=== PATIENT | female | born 1940 | race Caucasian/White ===

== ENCOUNTER 2019-08-15 17:36 | Inpatient (IN) ==
[2019-08-15] MEDS ORDERED: SODIUM CHLORIDE 0.9% 1000ML 1,000 ML IV SCH (18:15)
[2019-08-15] MEDS ORDERED: LORazepam 0.5 MG TAB PO STA (18:18)
[2019-08-15 18:49] LABS: Eosinophils # (auto) 0.04 K/uL (0-0.5); Eosinophils % (auto) 1.3 %; Hematocrit (blood only) 23.6 % (37-47); Hemoglobin 8.2 g/dL (12.0-16.0); Immature Granulocytes # (auto) 0.04 K/uL (0.00-0.02); Immature Granulocytes % (auto) 1.3 %; Lymphocytes # (auto) 0.76 K/uL (1.2-3.4); Lymphocytes % (auto) 24.7 %; Mean Corpuscular Hemoglobin 31.8 pg (25-34); Mean Corpuscular Hgb Conc 34.7 g/dL (32-36); Mean Corpuscular Volume 91.5 fL (80-100); Mean Platelet Volume 8.6 fL (7.4-10.4); Monocytes # (auto) 0.47 K/uL (0.11-0.59); Monocytes % (auto) 15.3 %; Neutrophils # (auto) 1.77 K/uL (1.4-6.5); Neutrophils % (auto) 57.4 %; Platelet Count 234 K/uL (130-400); RDW Coefficient of Variation 16.6 % (11.5-14.5); RDW Standard Deviation 55.8 fL (36.4-46.3); Red Blood Count 2.58 M/uL (4.2-5.4); White Blood Count 3.08 K/uL (4.8-10.8)
--- NOTE | 2019-08-15 18:54 | Emergency Department Note ---
Entered by Ruby Berger acting as a scribe for Manuel Meza MD ED Provider Note CHIEF COMPLAINT: Confusion HISTORY OF PRESENT ILLNESS: The patient is a 78 year old female who presents to the Emergency Room with complaints of confusion. She is accompanied by 2 family members. She states she has experienced a recent loss of memory and her BSG was high, then went down to 86. Her family states she has been "slurring her speech" and increasingly weak. She was unable to hold a sandwich at 1645 today. Her daughter states her speech issues lasted for about 10 minutes. The patient has no prior history of stroke or mini-stroke. She has had MRI's before, but does get slightly anxious in the MRI tube. She does complain of persistent pain in the left side of her nose. She admits to intermittent constipation and diarrhea, most likely from chemotherapy. The patient was here in the ED on 07/23/2019 and had an extensive workup. She was discharged as there were no acute findings on a CT head, neck, chest, abdomen and pelvis. Pt denies LOC, headache, fevers, chills, diaphoresis, visual changes, neck pain, chest pain, breathing difficulties, nausea, vomiting, abdominal pain, back pain, melena, hematochezia, urinary symptoms, numbness, lymphadenopathy, rash, or other complaints. REVIEW OF SYSTEMS: See HPI for pertinent positives and negatives. A total of ten systems were reviewed and were otherwise negative. PMHx/PSHx: Diabetes. Breast cancer. Ovarian cancer. GERD. HTN. SOCIAL HISTORY: Patient lives at home. PHYSICAL EXAM: GENERAL: Awake, alert, well-appearing, in no distress HENT: Normocephalic, atraumatic. Oropharynx unremarkable. EYES: PERRL. Normal conjunctiva. Sclera non-icteric. NECK: Inspection normal. Non-tender. Supple. No nuchal rigidity. FROM. No masses. RESPIRATORY: Clear to auscultation. No wheezes. No rales. Normal respiratory effort. CARDIAC: Normal rate. Normal rhythm. No murmurs. No rubs. Extremities warm and well perfused. Pulses equal. No JVD. GI: Soft, non-distended. No tenderness to palpation. No rebound or guarding. No masses. RECTAL: Deferred. MUSCULOSKELETAL: Atraumatic. Chest examination reveals no tenderness. Port in left upper chest. The back is symmetrical on inspection without obvious abnormality. There is no CVA tenderness to palpation. No joint edema. LOWER EXTREMITIES: Calves are equal size bilaterally and non-tender. No edema. No discoloration. NEURO: Normal sensorium. No sensory or motor deficits noted. No drift. Normal finger to nose. SKIN: No rash or jaundice noted. EMERGENCY DEPARTMENT COURSE: 1806: Past medical records reviewed. The patient was evaluated in room B4B, and a complete history and physical examination were performed. MEDICAL DECISION MAKING: Prior records/ancillary studies reviewed. Previous work-up including multiple CT scans did not reveal any new acute findings. Nursing notes reviewed and agree them. Additional history obtained from family. The patient's history was concerning for slurred speech and left arm weakness. Differential diagnosis: Etiologies such as CVA, TIA, metabolic, infection, hypo/hyperglycemia, electrolyte abnormalities, cardiac sources, intracerebral event, toxicologic, neurologic, as well as others were entertained. Physical examination: As above. The patient has no drift. The weakness and slurred speech has resolved. ER treatment provided: IV Lock Normal saline hydration Oral Ativan for MRI claustrophobia. On reassessment the patient felt better. Diagnostics interpretation by me: ECG: [] The labs revealed [] Imaging studies: MR imaging as below. The patient had an episode that was different from her prior visit. She had slurred speech and left arm weakness. This was concerning for a significant TIA by history. MR imaging was performed. Consultation: A consultation was placed with the hospitalist. The case was discussed and diagnostics were reviewed. The patient was evaluated in the ER for further treatment. IMPRESSION: Slurred speech Left arm weakness History of metastatic ovarian cancer PLAN: Admit The scribe's documentation has been prepared under my direction and personally reviewed by me in its entirety. I confirm that the note above accurately reflects all work, treatment, procedures, and medical decision making performed by me. Past Med/Surg History Medical History Breast cancer (Resolved) Cancer OVARIAN CANCER AND FOUND NODULE IN DUODENUM AREA AND WILL START CHEMO AFTER THANKSGIVING 2019 Diabetes mellitus, type 2 Facial laceration (Acute) GERD (gastroesophageal reflux disease) Head injury (Acute) Hypertension Surgical History History of colon resection History of tonsillectomy Hx of colonoscopy Hx of eye surgery UNSURE SOMETHING TO DO WITH RETINA Hx of hysterectomy BSO Social History Preferred Language: Kiswahili Communication Ability: Effective Public Safety Police Required: No Beliefs That Will Affect Care: None Current Living Situation: Spouse Feels Safe at Home: Yes Smoking Status: Never smoker Second Hand Exposure: No ; Hx Alcohol Use: Yes Alcohol type: wine Hx Substance Use: No Results & Data Vital Signs Vital Signs - 24 hr 08/15/19 17:46 08/15/19 18:15 Temperature 36.3 C L Temperature Source Oral Pulse Rate 70 Respiratory Rate 18 Respiratory Effort / Characteristics Non-Labored Spontaneous Respiratory Depth Normal Blood Pressure 182/92 H Blood Pressure Mean 122 Blood Pressure Position Sitting Pulse Oximetry 99 98 Oxygen Delivery Method Room Air Room Air Sepsis Recent Fever Within 48 Hours No Sepsis New/Unexplained Change in Mental Status No Sepsis Action Taken by Nursing No Action Required Home Medications Current Medication List: was personally reviewed by me Laboratory Data Attestation: I reviewed the patient's lab results. Result diagrams: 08/15/19 18:39 08/15/19 18:39 Lab Results 08/15/19 Range/Units 18:39 WBC 3.08 L (4.8-10.8) K/uL RBC 2.58 L (4.2-5.4) M/uL Hgb 8.2 L (12.0-16.0) g/dL Hct 23.6 L (37-47) % MCV 91.5 (80-100) fL MCH 31.8 (25-34) pg MCHC 34.7 (32-36) g/dL RDW Std Deviation 55.8 H (36.4-46.3) fL RDW Coeff of Ninoska 16.6 H (11.5-14.5) % Plt Count 234 (130-400) K/uL MPV 8.6 (7.4-10.4) fL Immature Gran % (Auto) 1.3 % Neut % (Auto) 57.4 % Lymph % (Auto) 24.7 % Young % (Auto) 15.3 % Eos % (Auto) 1.3 % Baso % (Auto) 0.0 % Immature Gran # (Auto) 0.04 H (0.00-0.02) K/uL Neut # (Auto) 1.77 (1.4-6.5) K/uL Lymph # (Auto) 0.76 L (1.2-3.4) K/uL Young # (Auto) 0.47 (0.11-0.59) K/uL Eos # (Auto) 0.04 (0-0.5) K/uL Baso # (Auto) 0.00 (0-0.2) K/uL Discharge Plan Visit Data Chief Complaint: Confusion Stated Complaint: LOST ABILITY TO SPEAK , ON CHEMO Other Complaint: Illness ED Provider: Manuel Meza Prescriptions Prescriptions: No Action metformin 500 mg Tablet 500 mg PO BID RF: 0 cyanocobalamin (vitamin B-12) [Vitamin B-12] 1,000 mcg Tablet 1,000 mcg PO QAM RF: 0 glimepiride 1 mg Tablet 1 mg PO UD RF: 0 multivitamin Capsule 1 cap PO QAM RF: 0 lisinopril 2.5 mg Tablet 2.5 mg PO QAM RF: 0 tramadol 50 mg tablet 50 mg PO Q6H PRN (Reason: Pain) RF: 0 trazodone 100 mg Tablet 100 mg PO HS PRN (Reason: Insomnia) RF: 0 lorazepam 0.5 mg tablet 0.5 mg PO DAILY PRN (Reason: Anxiety) RF: 0 Lidoc/Child/Antac liquid 15 ml mucous membrane QID PRN (Reason: Mouth Irritation) RF: 0 metoprolol succinate 25 mg Tablet Extended Release 24 Hr 25 mg PO DAILY RF: 0 acetaminophen [Tylenol 8 Hour] 650 mg tablet extended release 650 mg PO Q8H PRN (Reason: Fever Or Pain) RF: 0 ibuprofen [Advil] 200 mg Tablet 400 mg PO Q6H PRN (Reason: Pain) RF: 0 Lidocaine Viscous 2 % solution 1 applic topical UD RF: 0 The scribe's documentation has been prepared under my direction and personally reviewed by me in its entirety. I confirm that the note above accurately reflects all work, treatment, procedures, and medical decision making performed by me.
[2019-08-15 19:10] LABS: Appearance Urine Clear (Clear); Bilirubin Urine Negative (Negative); Blood Urine Negative (Negative); Color Urine Yellow; Glucose Urine UA Negative (Negative); Ketones Urine Negative (Negative); Leukocyte Esterase Urine Negative (Negative); Nitrite Urine Negative (Negative); Protein Urine Negative (Negative); Specific Gravity Urine 1.007 (1.000-1.030); Urobilinogen Urine Negative (Negative); pH Urine 5.5 (4.5-7.5)
[2019-08-15 19:11] LABS: Alanine Aminotransferase 16 U/L (12-78); Albumin Level 2.4 gm/dl (3.4-5.0); Aspartate Aminotransferase 15 U/L (15-37); BUN Creatinine Ratio 30.5 (10-20); Blood Urea Nitrogen 13 mg/dl (7-18); Calcium 6.6 mg/dl (8.5-10.1); Carbon Dioxide 21 mmol/L (21-32); Chloride 115 mmol/L (98-107); Est GFR (African American) 113.9; Est GFR (Non-African American) 98.3; Glucose 78 mg/dl (70-99); Sodium 141 mmol/L (136-145)
[2019-08-15 19:21] LABS: Albumin Globulin Ratio 1.1 (0.9-2); Alkaline Phosphatase 45 U/L (45-117); Bilirubin,Total 0.5 mg/dl (0.2-1); Globulin 2.2 gm/dl (2.5-4.0); Total Protein 4.6 gm/dl (6.4-8.2)
--- NOTE | 2019-08-15 21:08 | Magnetic Resonance Report ---
MRI OF THE BRAIN WITHOUT CONTRAST CLINICAL HISTORY: R/O CVA WEAKNESS, SLURRED SPEECH COMPARISON STUDY: Noncontrast head CT dated 08/09/2019 FINDINGS: Sagittal T1, axial diffusion, proton density and T2 weighted axial, coronal FLAIR, and axial T1-weigh frantz images were acquired. No intra or extra-axial mass lesions are visualized Axial diffusion-weighted images reveal no evidence of acute or subacute infarction. There is no evidence of ventricular dilatation. Proton density T2-weighted and FLAIR images reveal minimal foci of increased T2 signal within the whi te matter, likely on a small vessel basis. There are no abnormal flow voids. IMPRESSION: 1. No acute intracranial findings 2. No evidence of intracranial mass 2. No evidence of acute or subacute infarction ACT 112: Negative or not required by law. Electronically signed by: Nishant Savage M.D. 08/15/2019 9:07 PM
[2019-08-16] MEDS ORDERED: NITROGLYCERIN SL 0.4 MG/TAB TAB SL PRN (00:47)
[2019-08-16] MEDS ORDERED: PHARMACIST DISCHARGE MED REC CONSULT PRN (00:47)
[2019-08-16] MEDS ORDERED: TRAMADOL HCL 50 MG TABLET PO PRN (00:47)
[2019-08-16] MEDS ORDERED: [UNRECOGNIZED DRUG - OTHER] mucous membrane PRN (00:47)
[2019-08-16] MEDS ORDERED: ONDANSETRON INJ 2 MG/ML 2 ML VIAL IV PRN (00:47)
[2019-08-16] MEDS ORDERED: POTASSIUM CHLORIDE 20 MEQ TABCR PO STA (00:47)
[2019-08-16 01:07] LABS: Magnesium 0.9 mg/dl (1.8-2.4)
--- NOTE | 2019-08-16 01:16 | History and Physical Report ---
DATE OF ADMISSION: 08/15/2019 CHIEF COMPLAINT: Stroke-like symptoms. HISTORY OF PRESENT ILLNESS: This is a 78-year-old female with past medical history significant for type 2 diabetes, diabetic retinopathy, pulmonary fibrosis, history of supraventricular tachycardia, history of hypertension, esophageal stricture status post dilatation in the past. Currently, she is careful with swallowing, history of irritable bowel syndrome, history of anemia, history of recurrent ovarian cancer status post debulking surgery in February 2014, followed with chemo, then again she has a recurrent disease. Currently, she is on chemo every 4 weeks with doxy and carboplatin and in between she gets Avastin, and tomorrow she is supposed to get chemo. The patient comes here because around 3-4 p.m. she had word finding difficulty and she could not hold sandwich in her right hand, it lasts for about 10 minutes and she is back to her baseline. The patient is here on 08/09/2019 with complaints of weakness and pain in the mouth from ulcer and she is on Magic mouthwash and that has improved and at that time she also complained of some neck pain and CAT scan of soft tissue of the neck was done and there is question of A-port irritating the muscle, but she saw general surgery today and found the A-port was in good position.Also since she started on new chemo, in June she is feeling weak and tired. She usually ambulates without support prior, but now she is requiring some help while ambulating. Appetite is okay. She has to be careful with swallowing because of history of esophageal strictures. Denies any cough, no fever, no chills, no nausea, no vomiting, no abdominal pain. Has some mild headache, mild dizziness while ambulating, no blurred vision, no earaches. She has complaints of pain in the nose, some sore throat, pain in the throat. She gets diarrhea from the chemo, but today, she did not have any diarrhea, no blood in the stools or black stools. No hematuria, no burning micturition. No rash, no swelling in the legs. Currently resting comfortably and hemodynamically stable. ALLERGIES: CODEINE, LEVAQUIN, PENICILLINS. PAST MEDICAL HISTORY: As mentioned above. PAST SURGICAL HISTORY: Colonoscopy, left breast lumpectomy, colonoscopy with biopsy, multiple EGDs, EGD with transendoscopic dilatation, exploration of the abdomen, breast implants, injection of the eyes, insertion of tunneled central venous catheterization with subcutaneous port in 2013, multiple laser procedures for the eye, radiation treatment, removal of the inner eye fluid, tonsillectomy, cataract surgery, total abdominal hysterectomy with removal of the tubes. MEDICATIONS: The patient is on tramadol 50 mg p.o. q. 6 hours p.r.n. Magic mouthwash 4 times a day, Ativan 0.5 mg p.o. t.i.d. p.r.n., Toprol-XL 25 mg p.o. daily, Zofran 8 mg p.o. t.i.d. p.r.n., Lasix 20 mg p.o. daily, vitamin B12 1000 mcg p.o. daily, trazodone 100 mg p.o. daily, metformin 500 mg p.o. b.i.d., glimepiride 4 mg p.o. daily, lisinopril 2.5 mg p.o. daily, meloxicam, Tylenol 325 mg 3 tablets p.o. q. 6 hours p.r.n. FAMILY HISTORY: Significant for mother has diabetes and heart disorder. Sister has breast cancer. Daughter has breast cancer. Maternal grandmother has stroke and glaucoma. SOCIAL HISTORY: and lives with her . Former smoker, quit in 1987, smoked quarter pack a day for 19 years. Alcohol, 1 glass of wine daily. No drug use. REVIEW OF SYMPTOMS: As per HPI. Rest of review of symptoms negative. PHYSICAL EXAMINATION: GENERAL: The patient is old and frail, not in acute distress. VITAL SIGNS: Temperature 36.3, pulse 67, respiratory rate 18, blood pressure 172/86, oxygen 98% room air. HEENT: No pallor, no icterus. Pupils equal, round, reactive. NECK: No JVD, no masses, no carotid bruits. CARDIOVASCULAR: S1, S2, regular rate and rhythm, no murmur, no gallop. A-port site clean. RESPIRATORY SYSTEM: Normal AP diameter. No accessory muscle use. No wheezing, no crackles. ABDOMEN: Soft, bowel sounds present, nontender. No distention. CENTRAL NERVOUS SYSTEM: Cranial nerves are II-XII grossly intact. Coordination was normal. No pronator drift. Can move her extremities. EXTREMITIES: No edema, no erythema. LABORATORY DATA: WBC 3, hemoglobin 8.2, hematocrit 23.6, platelets 234. Sodium 141, potassium 3, chloride 115, CO2 of 21, BUN 13, creatinine 0.4, serum glucose 78, calcium 6.6, total bilirubin 0.5, AST 15, ALT 16, alkaline phosphatase 45. TSH is 1.1. Urinalysis negative. Brain MRI, no acute intracranial findings, no evidence of intracranial mass. No evidence of acute or subacute infarction. EKG: Normal sinus rhythm, no significant change was seen. ASSESSMENT AND PLAN: This is a 78-year-old female who presents with stroke-like symptoms. 1. Stroke like symptoms: Was not able to speak and not able to hold sandwich in the right hand, lasted for about 10 minutes, currently back to baseline. MRI scan is unremarkable. Possible TIA The patient has had echocardiogram on 07/26/2019 with normal ejection fraction and moderate tricuspid regurgitation, otherwise unremarkable. We will get a carotid Doppler, neuro checks, speech evaluation, neuro evaluation in a.m. PT and OT prior to discharge. Monitor in tele floor.Will start on baby aspirin. 2. Hypokalemia. Potassium is 3, will replaced. 3. Hypocalcemia: Calcium 6.6, corrected calcium is 7.4. Gave one amp of iv calcium gluconate. We will get ionized calcium levels.Will started on p.o. calcium supplements and also ge check vitamin D levels. 4. Recurrent ovarian cancer status post debulking surgery in 2013. Currently on chemo. Follows with hematology/oncology, to get chemo tomorrow Will notify hematology/oncology in a.m. 5. History of esophageal stricture status post dilatation in the past. The patient will get speech evaluation in a.m. The patient is on regular diet at home currently but careful with swallowing.Patient had difficult swallowing KCl pills-almost stuck in the throat.. Will keep on clears until seen by speech. May need GI evaluation. 6. Anemia and leukopenia, most likely from the chemo. Will follow the labs. 7. Diabetes. We will hold home p.o. medication, and place on insulin sliding scale, follow HBA1c level, follow blood sugars in the hospital. 8. Hypertension, on Toprol-XL. Will monitor blood pressure, started on aspirin. 9. Deep vein thrombosis prophylaxis, sequential compression devices. DISPOSITION: Admit to tele floor. PT and OT prior to discharge. Expect discharge home and follow with family doctor. Level 1 full code. Social Service to help with discharge planning. ANUP
[2019-08-16] MEDS ORDERED: CALCIUM GLUCONATE 10% 1,000 MG in SODIUM CHLORIDE 0.9% 50 ML IV STA (01:17)
[2019-08-16] MEDS ORDERED: POTASSIUM CHLORIDE 20 MEQ/15 ML UDC PO STA (01:29)
[2019-08-16] MEDS: POTASSIUM CHLORIDE 10 MEQ / 100ML WTR IV ONE ×2 (02:13→02:15)
[2019-08-16] MEDS: POTASSIUM CHLORIDE / WTR 10 MEQ/100 ML PLCT IV SCH ×3 (02:15→04:16)
[2019-08-16 06:37] LABS: Eosinophils # (auto) 0.06 K/uL (0-0.5); Eosinophils % (auto) 1.8 %; Hematocrit (blood only) 31.1 % (37-47); Hemoglobin 10.5 g/dL (12.0-16.0); Lymphocytes # (auto) 0.91 K/uL (1.2-3.4); Lymphocytes % (auto) 27.2 %; Mean Corpuscular Hemoglobin 30.7 pg (25-34); Mean Corpuscular Hgb Conc 33.8 g/dL (32-36); Mean Corpuscular Volume 90.9 fL (80-100); Mean Platelet Volume 9.7 fL (7.4-10.4); Monocytes # (auto) 0.54 K/uL (0.11-0.59); Monocytes % (auto) 16.2 %; Neutrophils # (auto) 1.83 K/uL (1.4-6.5); Neutrophils % (auto) 54.8 %; Platelet Count 297 K/uL (130-400); RDW Coefficient of Variation 16.6 % (11.5-14.5); RDW Standard Deviation 55.4 fL (36.4-46.3); Red Blood Count 3.42 M/uL (4.2-5.4); White Blood Count 3.34 K/uL (4.8-10.8)
[2019-08-16] MEDS ORDERED: POTASSIUM CHLORIDE / WTR 10 MEQ/100 ML PLCT IV ONE (06:45)
[2019-08-16 06:58] LABS: BUN Creatinine Ratio 17.6 (10-20); Calcium 9.1 mg/dl (8.5-10.1); Est GFR (African American) 97.9; Est GFR (Non-African American) 84.4; Magnesium 1.2 mg/dl (1.8-2.4); Potassium 4.9 mmol/L (3.5-5.1)
[2019-08-16] MEDS: MAGNESIUM SULFATE / D5W 1 GM/100 ML BAG IV SCH ×3 (07:06→09:05)
--- NOTE | 2019-08-16 07:14 | XRay Report ---
XR chest 1V portable HISTORY: aspiration COMPARISON: Chest 08/09/2019. FINDINGS: No pneumothorax. No pleural effusions. Large hiatus hernia is again noted. The heart remain s mildly enlarged. The right lung is clear. Left jugular catheter terminates at the distal left brach iocephalic vein. This remains unchanged. Hazy appearance to left lung base favors chronic interstitia l change. This is stable compared to the prior study. No new focal lung consolidations to suggest pne umonia. No evidence for pulmonary edema. IMPRESSION: No change in ACT 112: Negative or not required by law. Electronically signed by: Mateusz Parsons M.D. 08/16/2019 7:12 AM
[2019-08-16 07:24] LABS: Estimated Average Glucose 171 mg/dl; Hemoglobin A1C 7.6 % (4.5-5.6)
[2019-08-16] MEDS ORDERED: LIDOCAINE HCL 1% 20 ML VIAL INFIL PRN (09:37)
[2019-08-16] MEDS: MULTIVITAMIN TAB PO SCH (10:00)
[2019-08-16] MEDS: CYANOCOBALAMIN 500 MCG TABLET (VITAMIN B-12) PO SCH (10:00)
[2019-08-16] MEDS: METOPROLOL SUCC 25MG EXT REL TAB PO SCH (10:00)
[2019-08-16] MEDS: ASPIRIN 81 MG ECTAB PO SCH (10:00)
--- NOTE | 2019-08-16 10:01 | Ultrasound Report ---
CAROTID ARTERY ULTRASOUND CLINICAL HISTORY: Transient ischemic attack. COMPARISON STUDY: None. TECHNIQUE: Real-time, grayscale, and color Doppler sonography of the carotid and vertebral arteries w as performed. Images were viewed in the transverse and longitudinal planes. FINDINGS: There is mild atherosclerotic plaque. Velocity measurements are listed below. COMMON CAROTID PEAK SYSTOLIC VELOCITY (CM/S): RIGHT 88 LEFT 77 ICA PEAK SYSTOLIC VELOCITY (CM/S): RIGHT 61 LEFT 72 The stomach ratios between the internal to common carotid arteries are normal. Antegrade flow is seen in the vertebral arteries. The external carotid arteries are patent. Blood pressure was not obtained in this patient. IMPRESSION: No evidence for a hemodynamically significant stenosis. ACT 112: Negative or not required by law. Electronically signed by: Tye Elliott M.D. 08/16/2019 10:00 AM
[2019-08-16] MEDS: INSULIN ASPART 100 UNITS/ML 3 ML PEN SC SCH ×3 (10:30→17:18)
[2019-08-16] MEDS ORDERED: Magic Swizzle w/Glycerin 240mL MT PRN (10:43)
--- NOTE | 2019-08-16 14:51 | Electrocardiogram Report ---
Test Reason : Blood Pressure : / mmHG Vent. Rate : 061 BPM Atrial Rate : 061 BPM P-R Int : 170 ms QRS Dur : 072 ms QT Int : 428 ms P-R-T Axes : 001 006 022 degrees QTc Int : 430 ms Normal sinus rhythm Normal ECG When compared with ECG of 09-AUG-2019 17:37, No significant change was found Confirmed by Eder Hilario ([id number]) on 08/16/2019 2:51:36 PM Referred By: REFERRED SELF Confirmed By:Hebert Hilario
--- NOTE | 2019-08-16 15:19 | Neurology Consultation ---
Date of Consultation August 16, 2019 Assessment & Plan (1) Stroke-like symptoms: 1. MRI brain - without contrast due to history of ovarian CA- add constrast imaging if renal function will support 2. would add aspirin 81 mg if no contra indication 3. correct electrolyte abnormalities- check thiamine add thiamine 4. family for baseline - ongoing confusion x 3 weeks 5. TTE - done 01/2019 no ASD, cardiac holter no afib - repeat TTE 6. consult oncology for anything further coag or plt management 7. will continue to follow (2) Ovarian cancer: (3) Dehydration: (4) Weakness: Supervising Physician Co-Signing Physician Notes I have seen and discussed above patient with Dr Caitlyn Quiros, neurology. Pt seen and examined, Viewed video provided by daughter in which pt was dysarthric. Also reported R hand weakness. hx of confusion/weakness for several weeks. Last chemo 1 month ago. MRI brain noncon unremarkable. carotid neg, recent echo said to be noncontrib. Exam notable for nml visual fatima, facial symm, speech and language. Smm UE and LE strength. Imp TIA, presumed large vessel. Rec MRI brain with contrast given hx of cancer. Asa 81 mg, gradual reduction of bp. Zio as outp Rec consulting onc regarding in this setting of cancer whether anticoagulants are recommended. SUDHIR Quiros MD History of Present Illness Reason for Consultation: TIA? Requesting Physician: Terri Burdick DO Attending Physician: Terri Burdick DO History of Present Illness Lorraine is a 78 year old female with PMH- DM2, diabetic retinopathy, pulmonary fibrosis, SVT, HTN, espophageal stricture s/o dilatation, IBS, anemia, ovarian CA s/p debulking 02/2014, now has recurrent disease and being treated with chemo therapy. She has doxy/carboplatin every 4 weeks and Avastin. She started having word finding difficulty and could not hold her sandwich in her right hand which lasted for 10 minutes. she states she has a painful mouth ulcer and since starting a new chemo drug in June she is feeling weak. There is no family in the room so the history is obtained from the chart. She is pleasantly confused and is having diffuctly tell what type of CA she has and why she is here. denies CP, SOB, abdominal pain, one sided weakness, numbness tingling, N, V, vision changes, headache. Allergies Allergy/AdvReac Type Severity Reaction Status Date / Time codeine Allergy Mild Unknown Verified 08/09/19 19:08 Penicillins Allergy Mild UNSURE OF Verified 08/09/19 19:08 REACTION Home Medications Home Medications Medication Instructions Recorded Confirmed Type cyanocobalamin (vitamin B-12) 1,000 mcg PO QAM 04/25/19 08/15/19 History [Vitamin B-12] glimepiride 1 mg PO UD 04/25/19 08/15/19 History lisinopril 2.5 mg PO QAM 04/25/19 08/15/19 History metformin 500 mg PO BID 04/25/19 08/15/19 History multivitamin 1 cap PO QAM 04/25/19 08/15/19 History Lidoc/Child/Antac 15 ml MUCOUS MEMBRANE QID PRN 08/09/19 08/15/19 History acetaminophen [Tylenol 8 Hour] 650 mg PO Q8H PRN 08/09/19 08/15/19 History ibuprofen [Advil] 400 mg PO Q6H PRN 08/09/19 08/15/19 History lidocaine HCl [Lidocaine Viscous] 1 applic TOPICAL UD 08/09/19 08/15/19 History lorazepam 0.5 mg PO DAILY PRN 08/09/19 08/15/19 History metoprolol succinate 25 mg PO DAILY 08/09/19 08/15/19 History tramadol 50 mg PO Q6H PRN 08/09/19 08/15/19 History trazodone 100 mg PO HS PRN 08/09/19 08/15/19 History Patient History Medical History Breast cancer (Resolved) Cancer OVARIAN CANCER AND FOUND NODULE IN DUODENUM AREA AND WILL START CHEMO AFTER THANKS2018 Diabetes mellitus, type 2 Facial laceration (Acute) GERD (gastroesophageal reflux disease) Head injury (Acute) Hypertension Surgical History History of colon resection History of tonsillectomy Hx of colonoscopy Hx of eye surgery UNSURE SOMETHING TO DO WITH RETINA Hx of hysterectomy BSO Social History Preferred Language: Tajik Communication Ability: Effective 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 Beliefs That Will Affect Care: None marital status: Current Living Situation: Spouse Other Information That Helps Us Care for You: Yes (under going cancer tx) Feels Safe at Home: Yes Safety Concerns: Feels Safe At This Time Smoking Status: Former smoker Second Hand Exposure: No ; Hx Alcohol Use: No Hx Substance Use: No Physical Exam Physical Exam: Physical Exam: Constitutional: appearance nourished, thin pale Ears, Nose, Mouth and Throat: mucous membranes moist, no injection and skin normal, eyes normal Cardiovascular: normal S-1 and S-2 and regular rate and rhythm Respiratory: course breath sounds Musculoskeletal: thin muscle atrophy Skin: no stigmata of neurocutaneous disease noted and normal and intact Eyes: extraocular muscles intact (EOMI) and pupils equal, round and reactive to light (PERRL) NEUROLOGIC EXAMINATION: Mental status: Alert and interactive Oriented cant tell what hospital but know she is in [employer] near [facility], knows button thumb, president Ari Oriented to person Speech fluent with no evidence of aphasia, word finding difficulty Cranial Nerves smile eye brow raise symmetric, tongue midline Reflexes: Deep tendon reflexes were symmetrical and graded 2/5. down going toes Sensory: intact to light and cool touch Coordination: finger to nose no bi pass, slight reaching tremor Gait/Stance: Posture sitting up in bed Motor: Negative for pronator drift of out stretched arms with eyes closed. Strength: hand hog counter biceps triceps 5/5 hip flex plantar flex ext 5/5 bilaterally Results & Data Vital Signs (Past 12 Hours) Vital Signs Temp Pulse Pulse Resp BP BP Pulse Ox 08/16/19 11:20 36.7 C 62 18 168/81 H 96 08/16/19 07:36 37.0 C 71 17 144/69 H 94 08/16/19 04:30 37.3 C 08/16/19 04:17 67 22 161/84 H 97 Laboratory Results Abnormal lab results 08/15/19 08/15/19 08/16/19 Range/Units 18:39 18:39 06:21 WBC 3.08 L 3.34 L (4.8-10.8) K/uL RBC 2.58 L 3.42 L (4.2-5.4) M/uL Hgb 8.2 L 10.5 L (12.0-16.0) g/dL Hct 23.6 L 31.1 L (37-47) % RDW Std Deviation 55.8 H 55.4 H (36.4-46.3) fL RDW Coeff of Ninoska 16.6 H 16.6 H (11.5-14.5) % Immature Gran # (Auto) 0.04 H (0.00-0.02) K/uL Lymph # (Auto) 0.76 L 0.91 L (1.2-3.4) K/uL Potassium 3.0 L (3.5-5.1) mmol/L Chloride 115 H (98-107) mmol/L Creatinine 0.41 L (0.6-1.2) mg/dl BUN/Creatinine Ratio 30.5 H (10-20) Glucose (70-99) mg/dl POC Glucose (70-99) mg/dl Hemoglobin A1c (4.5-5.6) % Calcium 6.6 L (8.5-10.1) mg/dl Magnesium 0.9 L* (1.8-2.4) mg/dl Total Protein 4.6 L (6.4-8.2) gm/dl Albumin 2.4 L (3.4-5.0) gm/dl Globulin 2.2 L (2.5-4.0) gm/dl 25-OH Vitamin D Total (30-100) ng/ml 08/16/19 08/16/19 08/16/19 Range/Units 06:21 06:21 06:21 WBC (4.8-10.8) K/uL RBC (4.2-5.4) M/uL Hgb (12.0-16.0) g/dL Hct (37-47) % RDW Std Deviation (36.4-46.3) fL RDW Coeff of Ninoska (11.5-14.5) % Immature Gran # (Auto) (0.00-0.02) K/uL Lymph # (Auto) (1.2-3.4) K/uL Potassium (3.5-5.1) mmol/L Chloride 109 H (98-107) mmol/L Creatinine (0.6-1.2) mg/dl BUN/Creatinine Ratio (10-20) Glucose 100 H (70-99) mg/dl POC Glucose (70-99) mg/dl Hemoglobin A1c 7.6 H (4.5-5.6) % Calcium (8.5-10.1) mg/dl Magnesium 1.2 L (1.8-2.4) mg/dl Total Protein (6.4-8.2) gm/dl Albumin (3.4-5.0) gm/dl Globulin (2.5-4.0) gm/dl 25-OH Vitamin D Total 23.8 L (30-100) ng/ml 08/16/19 08/16/19 Range/Units 07:32 11:22 WBC (4.8-10.8) K/uL RBC (4.2-5.4) M/uL Hgb (12.0-16.0) g/dL Hct (37-47) % RDW Std Deviation (36.4-46.3) fL RDW Coeff of Ninoska (11.5-14.5) % Immature Gran # (Auto) (0.00-0.02) K/uL Lymph # (Auto) (1.2-3.4) K/uL Potassium (3.5-5.1) mmol/L Chloride (98-107) mmol/L Creatinine (0.6-1.2) mg/dl BUN/Creatinine Ratio (10-20) Glucose (70-99) mg/dl POC Glucose 113 H 120 H (70-99) mg/dl Hemoglobin A1c (4.5-5.6) % Calcium (8.5-10.1) mg/dl Magnesium (1.8-2.4) mg/dl Total Protein (6.4-8.2) gm/dl Albumin (3.4-5.0) gm/dl Globulin (2.5-4.0) gm/dl 25-OH Vitamin D Total (30-100) ng/ml Diagnostic Findings MRI brain- No acute intracranial findings No evidence of intracranial mass No evidence of acute or subacute infarction carotid doppler-No evidence for a hemodynamically significant stenosis. CXR-No pneumothorax. No pleural effusions. Large hiatus hernia is again noted. The heart remains mildly enlarged. The right lung is clear. Left jugular catheter terminates at the distal left brachiocephalic vein. This remains unchanged. Hazy appearance to left lung base favors chronic interstitial change. This is stable compared to the prior study. No new focal lung consolidations to suggest pneumonia. No evidence for pulmonary edema. (1) Ovarian cancer Laterality: unspecified laterality Qualified Code(s): C56.9 - Malignant neoplasm of unspecified ovary
[2019-08-16] MEDS: LORazepam 0.5 MG TAB PO PRN (16:41)
[2019-08-16] MEDS ORDERED: GADOBUTROL 65ML VIAL IV PRN (18:53)
--- NOTE | 2019-08-16 19:44 | Magnetic Resonance Report ---
MR brain wo/w con CLINICAL HISTORY: please do MRI with contast hx CA mental status change COMPARISON STUDY: 08/15/2019 TECHNIQUE: Utilizing a 1.5 Jaylene magnet and dedicated coil, multiplanar, multiecho imaging of the br ain was performed pre and postcontrast administration. IV administration of 8.5 mL of Gadavist contr ast was uneventful. FINDINGS: Enhanced images are acquired multiaxial and directly compared to the prior study of 08/15/19 20. The examination is considered negative for enhancing process. Ventricular system remains midline. Tereza la and parasellar regions remain unremarkable. The internal auditory canals remain symmetric. The deep white matter changes previously described are unaltered. IMPRESSION: No evidence for abnormal enhancement. All additional findings are unchanged from the conchis or study. ACT 112: Negative or not required by law. The above report was generated using voice recognition software. It may contain grammatical, syntax or spelling errors. Electronically signed by: Alli Hernandes M.D. 08/16/2019 7:42 PM
--- NOTE | 2019-08-16 20:48 | Hospitalist Progress Note ---
Date of Service August 16, 2019 Assessment & Plan (1) TIA (transient ischemic attack): ASA started this admission. Workup was negative for acute findings on imaging. Appreciate Neurology recommendations. (2) Ovarian cancer: Recurrence and now back on chemo and Avastin through local oncologist. Last chemo was 07/19/2019. Cont per outpatient specialist (3) Diabetes mellitus, type 2: At goal, cont insulin therapy while hospitalized. (4) Hypertension: elevated, hydralazine PRN. Keep her calm and ensure pain is addressed. Cont lisinopril with PRN antihypertensives. (5) Hypomagnesemia: replaced on admission and repeat in am. (6) Hypocalcemia: Was given calcium replacement and felt better. This has resolved. No tetany of muscles. (7) DVT prophylaxis: Lovenox Full code Dispo-uncertain at this time. Terri Burdick DO [facility] Hospitalist Admission and Anticipated Discharge Date Admission Date: August 15, 2019 Subjective Pt is doing well but having some intermittent memory loss Daughter is with her and very concerned about mom. Denies chest pain, SOB, CRANDALL, visual changes. Pt doesn't remember the history prior to the history. Review of Systems Review of Systems: All systems reviewed & are unremarkable except as noted in Subjective Physical Exam Physical Exam: CONSTITUTIONAL: WNWD, vitals as above, generally well-aundrea earing EYES: EOMI bilaterally, PERRL, normal conjunctivae, no scleral icterus ENT: MMM RESPIRATORY: clear to auscultation bilaterally, no crackles, rales or wheezes, normal respiratory effort CARDIOVASCULAR: regular rate and rhythm, S1 and 2 heard without murmurs, gallops or rubs, no JVD, no peripheral edema GASTROINTESTINAL: soft, nontender, nondistended MUSCULOSKELETAL: strength 5/5 throughout, head is normocephalic and atraumatic SKIN: warm and dry NEUROLOGIC: CN 2-12 grossly intact, no sensory deficit, normal cognition, normal speech, no tremor PSYCHIATRIC: alert cooperative and oriented to person only Results & Data ([facility]) Vital Signs (Past 12 Hours) Vital Signs Temp Pulse Pulse Resp BP BP Pulse Ox 08/16/19 19:38 37.0 C 67 20 171/89 H 96 08/16/19 16:00 36.6 C 69 20 169/84 H 96 08/16/19 11:20 36.7 C 62 18 168/81 H 96 Laboratory Results Short CBC 08/16/19 Range/Units 06:21 WBC 3.34 L (4.8-10.8) K/uL Hgb 10.5 L (12.0-16.0) g/dL Hct 31.1 L (37-47) % Plt Count 297 (130-400) K/uL BMP 08/16/19 06:21 Sodium 138 Potassium 4.9 D Chloride 109 H Carbon Dioxide 24 BUN 11 Creatinine 0.65 Glucose 100 H Calcium 9.1 D Medications Administered Current Inpatient Medications Acetaminophen (Tylenol) 650 mg PO Q4H PRN PRN Reason: Pain or Fever Stop: 09/15/19 00:46 Aspirin (Ecotrin Ectab) 81 mg PO [facility] Stop: 09/15/19 08:59 Last Admin: 08/16/19 10:00 Dose: 81 mg Documented by: Lidocaine HCl 60 ml/Diphenhydramine HCl 150 mg/ Al Hydrox/Mg Hydrox/Simethicone 60 ml/ Glycerin 60 ml/ BARCODE IDENTIFIER 1 ea 0 ml MT QID PRN PRN Reason: MOUTH IRITAION Stop: 09/15/19 10:42 Cyanocobalamin (Vitamin B-12) 1,000 mcg PO [facility] Stop: 09/15/19 08:59 Last Admin: 08/16/19 10:00 Dose: 1,000 mcg Documented by: Gadobutrol (Gadavist 65ml) 5 ml IV ONCE PRN PRN Reason: Interaction Checking Stop: 08/20/19 18:52 Last Admin: 08/16/19 18:54 Dose: 5 ml Documented by: Insulin Aspart (Novolog Flexpen) 0 units [facility] Stop: 09/15/19 09:14 Last Admin: 08/16/19 17:18 Dose: 4 units Documented by: Lidocaine HCl (Xylocaine 1% (Local)) 20 ml INFIL PRN PRN PRN Reason: prior to chemo Stop: 09/15/19 09:36 Lisinopril (Zestril) 2.5 mg PO [facility] Stop: 09/15/19 08:59 Last Admin: 08/16/19 10:00 Dose: 2.5 mg Documented by: Lorazepam (Ativan) 0.5 mg PO DAILY PRN PRN Reason: Anxiety Stop: 09/15/19 00:46 Last Admin: 08/16/19 16:41 Dose: 0.5 mg Documented by: Metoprolol Succinate (Toprol Xl) 25 mg PO DAILY [facility] Stop: 09/15/19 08:59 Last Admin: 08/16/19 10:00 Dose: 25 mg Documented by: Miscellaneous Information (Pharmacist Discharge Med Rec Consult) 1 ea N/A UD PRN PRN Reason: Consult Stop: 09/15/19 00:46 Multivitamins (Multivitamin Tab) 1 tab PO QAM [facility] Stop: 09/15/19 08:59 Last Admin: 08/16/19 10:00 Dose: 1 tab Documented by: Nitroglycerin (Nitrostat) 0.4 mg SL UD PRN PRN Reason: Chest Pain Stop: 09/15/19 00:46 Ondansetron HCl (Zofran) 4 mg IV Q6H PRN PRN Reason: Nausea Stop: 09/15/19 00:46 Tramadol HCl (Ultram) 50 mg PO Q6H PRN PRN Reason: Pain Stop: 09/15/19 00:46 Trazodone HCl (Desyrel) 100 mg PO HS PRN PRN Reason: Insomnia Stop: 09/15/19 00:46 (1) Ovarian cancer Laterality: unspecified laterality Qualified Code(s): C56.9 - Malignant neoplasm of unspecified ovary
[2019-08-16] MEDS: TRAZODONE HCL 100 MG TAB PO PRN (22:24)
[2019-08-17] MEDS: INSULIN ASPART 100 UNITS/ML 3 ML PEN SC SCH ×5 (00:34→20:42)
[2019-08-17] MEDS ORDERED: SODIUM CHLORIDE 0.9% 1000ML 1,000 ML IV ONE (03:51)
[2019-08-17] MEDS ORDERED: OLANZapine 10 MG/2.1 ML SDV IM STA (06:31)
[2019-08-17] MEDS: HEPARIN 100 UNIT/ML 5ML FLUSH FLUSH PRN ×2 (08:10→22:33)
[2019-08-17] MEDS: METOPROLOL SUCC 25MG EXT REL TAB PO SCH (08:36)
[2019-08-17] MEDS: ASPIRIN 81 MG ECTAB PO SCH (08:36)
[2019-08-17] MEDS: MULTIVITAMIN TAB PO SCH (08:36)
[2019-08-17] MEDS: CYANOCOBALAMIN 500 MCG TABLET (VITAMIN B-12) PO SCH (08:36)
[2019-08-17] MEDS: ACETAMINOPHEN 325 MG TAB PO PRN ×2 (08:40→15:46)
[2019-08-17 11:05] LABS: Eosinophils # (auto) 0.04 K/uL (0-0.5); Eosinophils % (auto) 1.3 %; Hematocrit (blood only) 33.9 % (37-47); Hemoglobin 11.4 g/dL (12.0-16.0); Lymphocytes # (auto) 0.87 K/uL (1.2-3.4); Lymphocytes % (auto) 28.1 %; Mean Corpuscular Hemoglobin 30.8 pg (25-34); Mean Corpuscular Hgb Conc 33.6 g/dL (32-36); Mean Corpuscular Volume 91.6 fL (80-100); Mean Platelet Volume 9.1 fL (7.4-10.4); Monocytes # (auto) 0.38 K/uL (0.11-0.59); Monocytes % (auto) 12.3 %; Neutrophils # (auto) 1.81 K/uL (1.4-6.5); Neutrophils % (auto) 58.3 %; Platelet Count 268 K/uL (130-400); RDW Coefficient of Variation 16.5 % (11.5-14.5); RDW Standard Deviation 55.7 fL (36.4-46.3)
[2019-08-17 11:53] LABS: Calcium 8.7 mg/dl (8.5-10.1); Est GFR (African American) 97.9; Est GFR (Non-African American) 84.4; Magnesium 1.6 mg/dl (1.8-2.4); Potassium 4.1 mmol/L (3.5-5.1)
[2019-08-17] MEDS: LORazepam 0.5 MG TAB PO PRN (12:12)
[2019-08-17 13:19] LABS: Appearance Urine Clear (Clear); Bacteria Urine Automated Negative (Negative); Bilirubin Urine Negative (Negative); Blood Urine Negative (Negative); Cast Urine Automated 0 /lpf (0-5); Color Urine Yellow; Glucose Urine UA Negative (Negative); Ketones Urine Negative (Negative); Leukocyte Esterase Urine Negative (Negative); Nitrite Urine Negative (Negative); Protein Urine 1+ (Negative); RBC Urine Automated 0-4 /hpf (0-4); Urobilinogen Urine Negative (Negative)
--- NOTE | 2019-08-17 15:01 | Neurology Progress Note ---
Date of Service August 17, 2019 Assessment & Plan (1) Stroke-like symptoms: 1. MRI brain - without contrast due to history of ovarian CA- add constrast imaging if renal function will support 2. would add aspirin 81 mg if no contra indication 3. correct electrolyte abnormalities- check thiamine add thiamine 4. family for baseline - ongoing confusion x 3 weeks 5. TTE - done 01/2019 no ASD, cardiac holter no afib 6. consult oncology for anything further coag or plt management 7. no further neurology recommendations at this time (2) Ovarian cancer: (3) Dehydration: (4) Weakness: Admission and Anticipated Discharge Date Admission Date: August 15, 2019 Supervising Physician Co-Signing Physician Notes I have seen and discussed above patient with Dr Caitlyn Quiros, neurology. Patient seen and examined discussed with Caitlyn DIAZ as well as patient's and daughter. Last evening became confused and required treatment with Zyprexa this morning was much improved. Family still concerned that for over 3 weeks she has been significantly off baseline. Her MRI the brain with contrast showed no enhancing lesions or meningeal enhancement. Echo had been performed several weeks prior to admission was noncontributory. LDL within normal limits. Monitoring shows patient to be in sinus rhythm. Patient denies headache. On exam the patient is awake and alert oriented [place] [facility] [place] month and year no right left confusion or difficulty with naming. She had difficulty registering the 3 items and did not recall them at 3 minutes. Pupils are equal the right optic nerve appeared unremarkable unable to visualize the left normal fatima motility facial symmetry motor is symmetric. Impression transient ischemic jay ck continue aspirin risk factor modification good control of blood pressure gradually over time antiplatelet therapy with aspirin. Would consult with hematology given history of ovarian cancer and active treatment whether or not the patient needs to be on anticoagulants. Recommend EEG regarding patient's family's complaints about waxing and waning mental status. Some additional labs for cognitive dysfunction. Lumbar puncture may be appropriate given history of chemotherapy and ovarian cancer. We will continue to follow with you. SUDHIR Quiros MD Lindsay Peters is a 78 year old female with PMH- DM2, diabetic retinopathy, pulmonary fibrosis, SVT, HTN, esophageal stricture s/o dilatation, IBS, anemia, ovarian CA s/p debulking 02/2014, now has recurrent disease and being treated with chemo therapy. She has doxy/carboplatin every 4 weeks and Avastin. She started having word finding difficulty and could not hold her sandwich in her right hand which lasted for 10 minutes. she states she has a painful mouth ulcer and since starting a new chemo drug in June she is feeling weak. She is pleasantly confused her daughter and are in the room.She had an episode of delirium this am but when her arrived she was back to her baseline. denies CP, SOB, abdominal pain, one sided weakness, numbness tingling, N, V, vision changes, headache. Physical Exam Physical Exam: Gen: alert NAD lungs normal respiratory effort CV RRR moves all ext with command and with purpose Results & Data ([facility]) Vital Signs (Past 12 Hours) Vital Signs Temp Pulse Pulse Resp BP BP Pulse Ox 08/17/19 11:50 36.4 C L 48 L 16 156/81 H 99 08/17/19 07:53 36.6 C 76 18 147/90 H 96 Laboratory Results Abnormal lab results 08/17/19 08/17/19 08/17/19 Range/Units 07:42 10:45 10:45 WBC 3.10 L (4.8-10.8) K/uL RBC 3.70 L (4.2-5.4) M/uL Hgb 11.4 L (12.0-16.0) g/dL Hct 33.9 L (37-47) % RDW Std Deviation 55.7 H (36.4-46.3) fL RDW Coeff of Ninoska 16.5 H (11.5-14.5) % Lymph # (Auto) 0.87 L (1.2-3.4) K/uL Glucose 124 H (70-99) mg/dl POC Glucose 116 H (70-99) mg/dl Magnesium 1.6 L (1.8-2.4) mg/dl Urine Protein (Negative) U Epithel Cells (Auto) (0-5) /lpf 08/17/19 08/17/19 Range/Units 11:25 11:48 WBC (4.8-10.8) K/uL RBC (4.2-5.4) M/uL Hgb (12.0-16.0) g/dL Hct (37-47) % RDW Std Deviation (36.4-46.3) fL RDW Coeff of Ninoska (11.5-14.5) % Lymph # (Auto) (1.2-3.4) K/uL Glucose (70-99) mg/dl POC Glucose 113 H (70-99) mg/dl Magnesium (1.8-2.4) mg/dl Urine Protein 1+ H (Negative) U Epithel Cells (Auto) 10-20 H (0-5) /lpf Diagnostic Findings MRI brain with contrast No evidence for abnormal enhancement. All additional findings are unchanged from the prior study. (1) Ovarian cancer Laterality: unspecified laterality Qualified Code(s): C56.9 - Malignant neoplasm of unspecified ovary
[2019-08-17] MEDS: MAGNESIUM SULFATE / D5W 1 GM/100 ML BAG IV SCH ×4 (17:15→21:38)
--- NOTE | 2019-08-17 19:02 | Hospitalist Progress Note ---
Date of Service August 17, 2019 Assessment & Plan (1) Confusion: Likely a combination of factors including illness, chemotherapy, poor reserve to handle insult (metabolic insult/electrolyte abnormality) and hospital-induced delirium. Cont supportive care, electrolyte correction efforts. B12/folate in am per Neuro. (2) TIA (transient ischemic attack): ASA started this admission. Workup was negative for acute findings on imaging. (3) Ovarian cancer: Recurrence and now back on chemo and Avastin through local oncologist. Last chemo was 07/19/2019. Cont per outpatient specialist (4) Diabetes mellitus, type 2: At goal, cont insulin therapy while hospitalized. (5) Hypertension: elevated, hydralazine PRN. Keep her calm and ensure pain is addressed. Cont lisinopril at increased dose of 10mg. (6) Hypomagnesemia: replaced on admission. Repeat today was 1.6 and she was given some additional mag supplementation today., (7) Hypocalcemia: Was given calcium replacement and felt better. This has resolved. (8) DVT prophylaxis: Lovenox Full code Dispo-uncertain at this time. DO Bogdan Lucia Hospitalist Admission and Anticipated Discharge Date Admission Date: August 15, 2019 Subjective Code [place]o overnight with Zyprexa needed More calm this evening but is disoriented Able to follow commands ROS is therefore unreliable, however she denies any symptoms except some minor lower right back pain. Review of Systems Review of Systems: Unobtainable due to mental health condition Physical Exam Physical Exam: CONSTITUTIONAL: WNWD, vitals as above, generally well- appearing EYES: EOMI bilaterally, PERRL, normal conjunctivae, no scleral icterus ENT: MMM RESPIRATORY: clear to auscultation bilaterally, no crackles, rales or wheezes, normal respiratory effort CARDIOVASCULAR: regular rate and rhythm, S1 and 2 heard without murmurs, gallops or rubs, no JVD, no peripheral edema GASTROINTESTINAL: soft, nontender, nondistended MUSCULOSKELETAL: strength 5/5 throughout, head is normocephalic and atraumatic SKIN: warm and dry NEUROLOGIC: CN 2-12 grossly intact, no sensory deficit, normal cognition, normal speech, no tremor PSYCHIATRIC: alert cooperative and oriented to person only Results & Data ([facility]) Vital Signs (Past 12 Hours) Vital Signs Temp Pulse Pulse Resp BP BP Pulse Ox 08/17/19 16:21 36.4 C L 63 18 173/95 H 99 08/17/19 11:50 36.4 C L 48 L 16 156/81 H 99 08/17/19 07:53 36.6 C 76 18 147/90 H 96 Laboratory Results Short CBC 08/17/19 Range/Units 10:45 WBC 3.10 L (4.8-10.8) K/uL Hgb 11.4 L (12.0-16.0) g/dL Hct 33.9 L (37-47) % Plt Count 268 (130-400) K/uL BMP 08/17/19 10:45 Sodium 136 Potassium 4.1 D Chloride 105 Carbon Dioxide 25 BUN 12 Creatinine 0.65 Glucose 124 H Calcium 8.7 Urine 08/17/19 Range/Units 11:25 Urine Color Yellow Urine Appearance Clear (Clear) Urine pH 6.0 (4.5-7.5) Ur Specific Wilmer 1.010 (1.000-1.030) Urine Protein 1+ H (Negative) Urine Glucose (UA) Negative (Negative) Medications Administered Current Inpatient Medications Acetaminophen (Tylenol) 650 mg PO Q4H PRN PRN Reason: Pain or Fever Stop: 09/15/19 00:46 Last Admin: 08/17/19 15:46 Dose: 650 mg Documented by: Aspirin (Ecotrin Ectab) 81 mg PO [facility] Stop: 09/15/19 08:59 Last Admin: 08/17/19 08:36 Dose: 81 mg Documented by: Lidocaine HCl 60 ml/Diphenhydramine HCl 150 mg/ Al Hydrox/Mg Hydrox/Simethicone 60 ml/ Glycerin 60 ml/ BARCODE IDENTIFIER 1 ea 0 ml MT QID PRN PRN Reason: MOUTH IRITAION Stop: 09/15/19 10:42 Cyanocobalamin (Vitamin B-12) [facility] Stop: 09/15/19 08:59 Last Admin: 08/17/19 08:36 Dose: 1,000 mcg Documented by: Ergocalciferol (Vitamin D2) 50,000 units PO Th@2100 [facility] Stop: 11/02/19 21:01 Gadobutrol (Gadavist 65ml) 5 ml IV ONCE PRN PRN Reason: Interaction Checking Stop: 08/20/19 18:52 Last Admin: 08/16/19 18:54 Dose: 5 ml Documented by: Heparin Sodium (Porcine) (Heparin Sod 100 Unit/Ml Flush) 5 ml FLUSH PRN PRN PRN Reason: Flush Stop: 09/15/19 22:57 Last Admin: 08/17/19 08:10 Dose: 5 ml Documented by: Sodium Chloride (Nss 1000ml) 1,000 mls @ 60 mls/hr IV .[id number] ONE Stop: 08/17/19 20:30 Last Admin: 08/17/19 08:32 Dose: 60 mls/hr Documented by: Magnesium Sulfate/Dextrose (Magnesium Sulfate / D5w) 1 gm in 100 mls @ 100 mls/hr IV Q1H [facility] Stop: 08/17/19 20:44 Last Admin: 08/17/19 18:45 Dose: 100 mls/hr Documented by: Insulin Aspart (Novolog Flexpen) 0 units SC ACHS [facility] Stop: 09/15/19 09:14 Last Admin: 08/17/19 17:14 Dose: 5 units Documented by: Lidocaine HCl (Xylocaine 1% (Local)) 20 ml INFIL PRN PRN PRN Reason: prior to chemo Stop: 09/15/19 09:36 Lisinopril (Zestril) 2.5 mg PO QAM [facility] Stop: 09/15/19 08:59 Last Admin: 08/17/19 08:36 Dose: 2.5 mg Documented by: Lorazepam (Ativan) 0.5 mg PO DAILY PRN PRN Reason: Anxiety Stop: 09/15/19 00:46 Last Admin: 08/17/19 12:12 Dose: 0.5 mg Documented by: Metoprolol Succinate (Toprol Xl) 25 mg PO DAILY [facility] Stop: 09/15/19 08:59 Last Admin: 08/17/19 08:36 Dose: 25 mg Documented by: Miscellaneous Information (Pharmacist Discharge Med Rec Consult) 1 ea N/A UD PRN PRN Reason: Consult Stop: 09/15/19 00:46 Multivitamins (Multivitamin Tab) 1 tab PO QAM [facility] Stop: 09/15/19 08:59 Last Admin: 08/17/19 08:36 Dose: 1 tab Documented by: Nitroglycerin (Nitrostat) 0.4 mg SL UD PRN PRN Reason: Chest Pain Stop: 09/15/19 00:46 Ondansetron HCl (Zofran) 4 mg IV Q6H PRN PRN Reason: Nausea Stop: 09/15/19 00:46 Tramadol HCl (Ultram) 50 mg PO Q6H PRN PRN Reason: Pain Stop: 09/15/19 00:46 Trazodone HCl (Desyrel) 100 mg PO HS PRN PRN Reason: Insomnia Stop: 09/15/19 00:46 Last Admin: 08/16/19 22:24 Dose: 100 mg Documented by: (1) Ovarian cancer Laterality: unspecified laterality Qualified Code(s): C56.9 - Malignant neoplasm of unspecified ovary
[2019-08-17] MEDS ORDERED: HydrALAZINE HCL 20 MG/ML VIAL IV STA (19:09)
[2019-08-17] MEDS ORDERED: ERGOCALCIFEROL 50,000 UNITS CAP PO SCH (21:00)
[2019-08-18] MEDS: ACETAMINOPHEN 325 MG TAB PO PRN (02:40)
[2019-08-18 06:11] LABS: Hematocrit (blood only) 33.7 % (37-47); Hemoglobin 11.4 g/dL (12.0-16.0); Mean Corpuscular Hemoglobin 31.2 pg (25-34); Mean Corpuscular Hgb Conc 33.8 g/dL (32-36); Mean Corpuscular Volume 92.3 fL (80-100); Mean Platelet Volume 9.1 fL (7.4-10.4); Platelet Count 338 K/uL (130-400); RDW Coefficient of Variation 16.7 % (11.5-14.5); RDW Standard Deviation 56.7 fL (36.4-46.3); Red Blood Count 3.65 M/uL (4.2-5.4)
[2019-08-18 06:48] LABS: BUN Creatinine Ratio 20.6 (10-20); Calcium 9.1 mg/dl (8.5-10.1); Creatinine Clr Calc Pharmacy 45.9 ml/min; Est GFR (African American) 87.9; Est GFR (Non-African American) 75.8; Magnesium 2.2 mg/dl (1.8-2.4); Potassium 3.8 mmol/L (3.5-5.1)
[2019-08-18 07:42] LABS: Folate (Folic Acid) 21.35 ng/ml (>5.38)
[2019-08-18] MEDS: HEPARIN 100 UNIT/ML 5ML FLUSH FLUSH PRN (07:51)
[2019-08-18] MEDS: ENOXAPARIN INJ 40 MG/0.4 ML SYR SQ SCH (08:07)
[2019-08-18] MEDS: ASPIRIN 81 MG ECTAB PO SCH (08:08)
[2019-08-18] MEDS: MULTIVITAMIN TAB PO SCH (08:08)
[2019-08-18] MEDS: METOPROLOL SUCC 25MG EXT REL TAB PO SCH (08:08)
[2019-08-18] MEDS: INSULIN ASPART 100 UNITS/ML 3 ML PEN SC SCH ×4 (08:08→20:13)
[2019-08-18] MEDS: CYANOCOBALAMIN 500 MCG TABLET (VITAMIN B-12) PO SCH (08:08)
--- NOTE | 2019-08-18 08:34 | Hospitalist Progress Note ---
Date of Service August 18, 2019 Assessment & Plan (1) TIA (transient ischemic attack): ASA started this admission. Workup was negative for acute findings on imaging. Currently getting EEG (2) Ovarian cancer: Recurrence and now back on chemo and Avastin through local oncologist. Last chemo was 07/19/2019. Cont per outpatient specialist (3) Diabetes mellitus, type 2: At goal, cont insulin therapy while hospitalized. (4) Hypertension: elevated, hydralazine PRN. Keep her calm and ensure pain is addressed. Cont lisinopril with PRN antihypertensives. (5) Hypomagnesemia: replaced on admission and repeat in am. (6) Hypocalcemia: Was given calcium replacement and felt better. This has resolved. No tetany of muscles. (7) DVT prophylaxis: Lovenox Full code Dispo-uncertain at this time. Labs Checked Sitter-Says patient better ROS-No Headache, No Visual Changes, No Nausea, No Vomiting, No Fever, No Chills, No Neck Pain or Stiffness, No Chest Pain, No Palpitations, No SOB, No RICHARDSON, No Cough, No Sputum, No Wheezing, No Abdominal Pain, No Diarrhea, No Hematemesis, No Hemoptysis, No Unexpected Weight Loss, No Flank pain, No Melena, No Hematochezia, No Frequency, No Urgency, No Burning, No Hematuria, No Rashes, No Diaphoresis. Appetite is Normal Physical Exam Gen-AAO x 3, NAD, Afebrile Head-NCAT, EOMI, PERRLA, Anicteric Sclera, No Posterior Pharyngeal Erythema Neck-Supple, No JVD, No Thyromegaly, No Masses, No LAD, No Bruits Lungs-Clear to Auscultation Bilaterally, No Rales, No Rhonchi, No Wheezing, No Crepitus Chest-No S4, +S1, +S2, No S3, No Murmurs, No Rubs, No Gallops, No Ectopy Abdomen-Soft, Bowel Sounds Present, Non Tender, Non Distended, No Hepatomegaly, No Splenomegaly, No Palpable Masses, No Rebound, No Rigidity, No Guarding Musculoskeletal-Full Range of Motion Bilaterally, No CVAT Extremities-No Cyanosis, No Clubbing, No Edema Nuero-Cranial Nerves II-XII grossly intact, Motor WNL, DTRs WNL, Strength WNL, Non Focal Psych-Normal Mood Admission and Anticipated Discharge Date Admission Date: August 15, 2019 Results & Data ([facility] [place]) Vital Signs (Past 12 Hours) Vital Signs Temp Pulse Resp BP BP Pulse Ox 08/18/19 07:00 36.4 C L 73 16 177/94 H 97 08/17/19 22:57 36.3 C L 76 20 172/81 H 97 (1) Ovarian cancer Laterality: unspecified laterality Qualified Code(s): C56.9 - Malignant neoplasm of unspecified ovary
[2019-08-18] MEDS: lisinopriL 10 MG TAB PO SCH (09:24)
--- NOTE | 2019-08-18 11:16 | Electroencephalogram ---
EEG Procedure Note Date of Service August 18, 2019 Start / End Times Start Time: 626 End Time: 646 Referring Physician Caitlyn Quiros MD History Confusion question nonconvulsive seizures Home Medication List Home Medications Medication Instructions Recorded Confirmed Type cyanocobalamin (vitamin B-12) 1,000 mcg PO QAM 04/25/19 08/15/19 History [Vitamin B-12] glimepiride 1 mg PO UD 04/25/19 08/15/19 History lisinopril 2.5 mg PO QAM 04/25/19 08/15/19 History metformin 500 mg PO BID 04/25/19 08/15/19 History multivitamin 1 cap PO QAM 04/25/19 08/15/19 History Lidoc/Child/Antac 15 ml MUCOUS MEMBRANE QID PRN 08/09/19 08/15/19 History acetaminophen [Tylenol 8 Hour] 650 mg PO Q8H PRN 08/09/19 08/15/19 History ibuprofen [Advil] 400 mg PO Q6H PRN 08/09/19 08/15/19 History lidocaine HCl [Lidocaine Viscous] 1 applic TOPICAL UD 08/09/19 08/15/19 History lorazepam 0.5 mg PO DAILY PRN 08/09/19 08/15/19 History metoprolol succinate 25 mg PO DAILY 08/09/19 08/15/19 History tramadol 50 mg PO Q6H PRN 08/09/19 08/15/19 History trazodone 100 mg PO HS PRN 08/09/19 08/15/19 History Inpatient Medication List Acetaminophen (Tylenol) 650 mg PO Q4H PRN PRN Reason: Pain or Fever Stop: 09/15/19 00:46 Last Admin: 08/18/19 02:40 Dose: 650 mg Documented by: [id number] Admin: 08/17/19 15:46 Dose: 650 mg Documented by: [id number] Admin: 08/17/19 08:40 Dose: 650 mg Documented by: [id number] Aspirin (Ecotrin Ectab) 81 mg PO QAM [facility] Stop: 09/15/19 08:59 Last Admin: 08/18/19 08:08 Dose: 81 mg Documented by: [id number] Admin: 08/17/19 08:36 Dose: 81 mg Documented by: [id number] Admin: 08/16/19 10:00 Dose: 81 mg Documented by: [id number] Cyanocobalamin (Vitamin B-12) 1,000 mcg PO QAM [facility] Stop: 09/15/19 08:59 Last Admin: 08/18/19 08:08 Dose: 1,000 mcg Documented by: [id number] Admin: 08/17/19 08:36 Dose: 1,000 mcg Documented by: [id number] Admin: 08/16/19 10:00 Dose: 1,000 mcg Documented by: [id number] Enoxaparin Sodium (Lovenox) 40 mg SQ [facility]AWW [facility] Stop: 09/17/19 08:59 Last Admin: 08/18/19 08:07 Dose: 40 mg Documented by: [id number] Ergocalciferol (Vitamin D2) 50,000 units PO Th@2100 [facility] Stop: 11/02/19 21:01 Last Admin: 08/17/19 20:35 Dose: 50,000 units Documented by: [id number] Heparin Sodium (Porcine) (Heparin Sod 100 Unit/Ml Flush) 5 ml FLUSH PRN PRN PRN Reason: Flush Stop: 09/15/19 22:57 Last Admin: 08/18/19 07:51 Dose: 5 ml Documented by: [id number] Admin: 08/17/19 22:33 Dose: 5 ml Documented by: [id number] Admin: 08/17/19 08:10 Dose: 5 ml Documented by: [id number] Insulin Aspart (Novolog Flexpen) 0 units SC ACHS [facility] Stop: 09/15/19 09:14 Last Admin: 08/18/19 08:08 Dose: 5 units Documented by: [id number] Cosigned by: [id number] Admin: 08/17/19 20:42 Dose: Not Given Documented by: [id number] Cosigned by: [id number] Admin: 08/17/19 17:14 Dose: 5 units Documented by: [id number] Cosigned by: [id number] Admin: 08/17/19 12:10 Dose: 3 units Documented by: [id number] Cosigned by: [id number] Admin: 08/17/19 08:33 Dose: 3 units Documented by: [id number] Cosigned by: [id number] Admin: 08/17/19 00:34 Dose: Not Given Documented by: [id number] Cosigned by: [id number] Admin: 08/16/19 17:18 Dose: 4 units Documented by: [id number] Cosigned by: [id number] Admin: 08/16/19 12:20 Dose: 2 units Documented by: [id number] Cosigned by: [id number] Admin: 08/16/19 10:30 Dose: Not Given Documented by: [id number] Cosigned by: [id number] Lisinopril (Zestril) 10 mg PO QAM [facility] Stop: 09/17/19 08:59 Last Admin: 08/18/19 09:24 Dose: 10 mg Documented by: [id number] Lorazepam (Ativan) 0.5 mg PO DAILY PRN PRN Reason: Anxiety Stop: 09/15/19 00:46 Last Admin: 08/17/19 12:12 Dose: 0.5 mg Documented by: [id number] Admin: 08/16/19 16:41 Dose: 0.5 mg Documented by: [id number] Metoprolol Succinate (Toprol Xl) 25 mg PO DAILY [facility] Stop: 09/15/19 08:59 Last Admin: 08/18/19 08:08 Dose: 25 mg Documented by: [id number] Admin: 08/17/19 08:36 Dose: 25 mg Documented by: [id number] Admin: 08/16/19 10:00 Dose: 25 mg Documented by: [id number] Multivitamins (Multivitamin Tab) 1 tab PO [facility] Stop: 09/15/19 08:59 Last Admin: 08/18/19 08:08 Dose: 1 tab Documented by: [id number] Admin: 08/17/19 08:36 Dose: 1 tab Documented by: [id number] Admin: 08/16/19 10:00 Dose: 1 tab Documented by: [id number] Trazodone HCl (Desyrel) 100 mg PO HS PRN PRN Reason: Insomnia Stop: 09/15/19 00:46 Last Admin: 08/16/19 22:24 Dose: 100 mg Documented by: [id number] Discontinued Medications Gadobutrol (Gadavist 65ml) 5 ml IV ONCE PRN PRN Reason: Interaction Checking Stop: 08/20/19 18:52 Last Admin: 08/16/19 18:54 Dose: 5 ml Documented by: [id number] Hydralazine HCl (Hydralazine Hcl) 10 mg IV NOW STA Stop: 08/17/19 19:10 Last Admin: 08/17/19 19:43 Dose: 10 mg Documented by: [id number] Sodium Chloride (Nss 1000ml) 1,000 mls @ 125 mls/hr IV .Q8H NIKA Stop: 08/16/19 02:14 Last Infusion: 08/16/19 07:17 Dose: 0 mls/hr Documented by: [id number] Infusion: 08/16/19 07:06 Dose: 0 mls/hr Documented by: [id number] Infusion: 08/16/19 02:15 Dose: 0 mls/hr Documented by: [id number] Admin: 08/15/19 21:27 Dose: 125 mls/hr Documented by: [id number] Calcium Gluconate 1,000 mg/ (Sodium Chloride) 60 mls @ 240 mls/hr IV NOW STA Stop: 08/16/19 01:31 Last Infusion: 08/16/19 02:03 Dose: 0 mls/hr Documented by: [id number] Admin: 08/16/19 01:48 Dose: 240 mls/hr Documented by: [id number] Potassium Chloride (K Pato / Wtr) 10 meq in 100 mls @ 100 mls/hr IV Q1H NIKA Stop: 08/16/19 05:44 Last Infusion: 08/16/19 05:17 Dose: 0 mls/hr Documented by: [id number] Infusion: 08/16/19 05:16 Dose: 0 mls/hr Documented by: [id number] Admin: 08/16/19 04:16 Dose: 100 mls/hr Documented by: [id number] Infusion: 08/16/19 04:15 Dose: 0 mls/hr Documented by: [id number] Admin: 08/16/19 03:15 Dose: 100 mls/hr Documented by: [id number] Admin: 08/16/19 02:15 Dose: Not Given Documented by: [id number] Potassium Chloride (K Pato / Wtr) 10 meq in 100 mls @ 100 mls/hr IV NOW ONE Stop: 08/16/19 07:44 Last Infusion: 08/16/19 07:43 Dose: 0 mls/hr Documented by: [id number] Admin: 08/16/19 06:43 Dose: 100 mls/hr Documented by: [id number] Magnesium Sulfate/Dextrose (Magnesium Sulfate / D5w) 1 gm in 100 mls @ 100 mls/hr IV Q1H [facility] Stop: 08/16/19 09:59 Last Infusion: 08/16/19 10:06 Dose: 0 mls/hr Documented by: [id number] Admin: 08/16/19 09:05 Dose: 100 mls/hr Documented by: [id number] Infusion: 08/16/19 09:05 Dose: 100 mls/hr Documented by: [id number] Admin: 08/16/19 08:07 Dose: 100 mls/hr Documented by: [id number] Infusion: 08/16/19 08:06 Dose: 100 mls/hr Documented by: [id number] Admin: 08/16/19 07:06 Dose: 100 mls/hr Documented by: [id number] Sodium Chloride (Nss 1000ml) 1,000 mls @ 60 mls/hr IV .[id number] ONE Stop: 08/17/19 20:30 Last Infusion: 08/17/19 22:31 Dose: 0 mls/hr Documented by: [id number] Admin: 08/17/19 08:32 Dose: 60 mls/hr Documented by: [id number] Magnesium Sulfate/Dextrose (Magnesium Sulfate / D5w) 1 gm in 100 mls @ 100 mls/hr IV Q1H [facility] Stop: 08/17/19 20:44 Last Infusion: 08/17/19 22:38 Dose: 0 mls/hr Documented by: [id number] Admin: 08/17/19 21:38 Dose: 100 mls/hr Documented by: [id number] Infusion: 08/17/19 21:34 Dose: 100 mls/hr Documented by: [id number] Admin: 08/17/19 20:34 Dose: 100 mls/hr Documented by: [id number] Infusion: 08/17/19 19:45 Dose: 0 mls/hr Documented by: [id number] Admin: 08/17/19 18:45 Dose: 100 mls/hr Documented by: [id number] Infusion: 08/17/19 18:44 Dose: 0 mls/hr Documented by: [id number] Admin: 08/17/19 17:15 Dose: 100 mls/hr Documented by: [id number] Lisinopril (Zestril) 2.5 mg PO QAM [facility] Stop: 09/15/19 08:59 Last Admin: 08/17/19 08:36 Dose: 2.5 mg Documented by: [id number] Admin: 08/16/19 10:00 Dose: 2.5 mg Documented by: [id number] Lorazepam (Ativan) 0.5 mg PO NOW [facility] Stop: 08/15/19 18:19 Last Admin: 08/15/19 18:52 Dose: 0.5 mg Documented by: [id number] Olanzapine (Zyprexa) 2.5 mg IM NOW STA Stop: 08/17/19 06:32 Last Admin: 08/17/19 07:00 Dose: 2.5 mg Documented by: [id number] Potassium Chloride (Tila Ciel Elix) 60 meq PO NOW STA Stop: 08/16/19 01:30 Last Admin: 08/16/19 02:14 Dose: Not Given Documented by: [id number] Potassium Chloride (K Pato / Wtr) Confirm Administered Dose 10 meq IV .STK-MED ONE Stop: 08/16/19 01:52 Last Admin: 08/16/19 02:15 Dose: 10 meq Documented by: [id number] Description This is a 21 electrode EEG with a single channel dedicated to limited EKG. The electrodes were placed in accordance with the International 10-20 system. This EEG was done on a patient who is described as confused and slightly agitated. Unfortunately video analysis of patient movement and behavior was not available through the computer system. The tracing appears to have been done during wakefulness and photic stimulation was also performed but drowsiness and light sleep are not clearly recorded Under these conditions there is evidence for a marginally slow background rhythm running between 8 and 9 Hz and of up to 30 V in amplitude which is symmetrical and present in the posterior head regions. Central modest voltage mid frequency theta activity is seen in symmetrical fashion and beta activity seen bifrontally. Photic stimulation provokes no significant abnormalities and certainly no epileptiform activity is induced No time during the tracing is evidence for potentially epileptogenic activity for polyspike or spike-wave burst, focal sharp waves or focal spikes Interpretation This EEG is at most marginally abnormal with the abnormalities consisting of slight reduced background alpha rhythm frequency which at age 78 may not necessarily be an abnormal finding Clinical Correlation This EEG reveals that most evidence to support a very mild generalized nonspecific encephalopathy without epileptogenic features Manuel Dorsey MD
--- NOTE | 2019-08-18 12:43 | Neurology Progress Note ---
Date of Service August 18, 2019 Assessment & Plan (1) Stroke-like symptoms: 1. MRI brain - without contrast due to history of ovarian CA- add constrast imaging if renal function will support 2. would add aspirin 81 mg if no contra indication 3. correct electrolyte abnormalities- check thiamine add thiamine 4. family for baseline - ongoing confusion x 3 weeks 5. TTE - done 01/2019 no ASD, cardiac holter no afib 6. consult oncology for anything further coag or plt management 7. EEG no seizure focus will be available for any further questions concerns follow up with neurology 4-6 week after discharge Caitlyn Conway PAC schedule (2) Ovarian cancer: (3) Dehydration: (4) Weakness: Admission and Anticipated Discharge Date Admission Date: August 15, 2019 Supervising Physician Co-Signing Physician Notes I have seen and discussed above patient with Dr Manuel Dorsey, neurolog Subjective Lorraine is a 78 year old female with PMH- DM2, diabetic retinopathy, pulmonary fibrosis, SVT, HTN, esophageal stricture s/o dilatation, IBS, anemia, ovarian CA s/p debulking 02/2014, now has recurrent disease and being treated with chemo therapy. She has doxy/carboplatin every 4 weeks and Avastin. She started having word finding difficulty and could not hold her sandwich in her right hand which lasted for 10 minutes. she states she has a painful mouth ulcer and since starting a new chemo drug in June she is feeling weak. She is currently sitting up bedside eating her lunch. she is much better today according to and daughter. discussed EEG and follow up in office in about 4-6 weeks for further memory testing once she is home for a while and feeling back to baseline. denies CP, SOB, abdominal pain, one sided weakness, numbness tingling, N, V, vision changes, headache. Physical Exam Physical Exam: Gen: alert NAD lungs normal respiratory effort CV RRR moves all ext with command and with purpose oriented to self, president [facility] Results & Data ([facility]) Vital Signs (Past 12 Hours) Vital Signs Temp Pulse Resp BP Pulse Ox 08/18/19 07:00 36.4 C L 73 16 177/94 H 97 Laboratory Results Abnormal lab results 08/17/19 08/17/19 08/18/19 Range/Units 11:25 16:27 05:45 RBC 3.65 L (4.2-5.4) M/uL Hgb 11.4 L (12.0-16.0) g/dL Hct 33.7 L (37-47) % RDW Std Deviation 56.7 H (36.4-46.3) fL RDW Coeff of Ninoska 16.7 H (11.5-14.5) % BUN/Creatinine Ratio (10-20) Glucose (70-99) mg/dl POC Glucose 182 H (70-99) mg/dl Vitamin B12 (211-911) pg/ml Urine Protein 1+ H (Negative) U Epithel Cells (Auto) 10-20 H (0-5) /lpf 08/18/19 08/18/19 08/18/19 Range/Units 05:45 05:45 07:39 RBC (4.2-5.4) M/uL Hgb (12.0-16.0) g/dL Hct (37-47) % RDW Std Deviation (36.4-46.3) fL RDW Coeff of Ninoska (11.5-14.5) % BUN/Creatinine Ratio 20.6 H (10-20) Glucose 146 H (70-99) mg/dl POC Glucose 137 H (70-99) mg/dl Vitamin B12 1158 H (211-911) pg/ml Urine Protein (Negative) U Epithel Cells (Auto) (0-5) /lpf 08/18/19 Range/Units 11:39 RBC (4.2-5.4) M/uL Hgb (12.0-16.0) g/dL Hct (37-47) % RDW Std Deviation (36.4-46.3) fL RDW Coeff of Ninoska (11.5-14.5) % BUN/Creatinine Ratio (10-20) Glucose (70-99) mg/dl POC Glucose 119 H (70-99) mg/dl Vitamin B12 (211-911) pg/ml Urine Protein (Negative) U Epithel Cells (Auto) (0-5) /lpf Diagnostic Findings This EEG is at most marginally abnormal with the abnormalities consisting of slight reduced background alpha rhythm frequency which at age 78 may not necessarily be an abnormal finding (1) Ovarian cancer Laterality: unspecified laterality Qualified Code(s): C56.9 - Malignant neoplasm of unspecified ovary
[2019-08-18] MEDS ORDERED: LORazepam 0.5 MG/1 ML VIAL IV STA (18:39)
[2019-08-18] MEDS: LORazepam 0.5 MG TAB PO PRN (18:44)
[2019-08-18] MEDS: TRAZODONE HCL 100 MG TAB PO PRN (22:36)
[2019-08-18] MEDS ORDERED: OLANZapine 10 MG/2.1 ML SDV IM PRN (23:55)
--- NOTE | 2019-08-19 08:27 | Discharge Summary ---
Date of Service August 19, 2019 Admission HPI Per Admitting Provider 78-year-old female with past medical history significant for type 2 diabetes, diabetic retinopathy, pulmonary fibrosis, history of supraventricular tachycardia, history of hypertension, esophageal stricture status post dilatation in the past. Currently, she is careful with swallowing, history of irritable bowel syndrome, history of anemia, history of recurrent ovarian cancer status post debulking surgery in February 2014, followed with chemo, then again she has a recurrent disease. Currently, she is on chemo every 4 weeks with doxy and carboplatin and in between she gets Avastin, and tomorrow she is supposed to get chemo. The patient comes here because around 3-4 p.m. she had word finding difficulty and she could not hold sandwich in her right hand, it lasts for about 10 minutes and she is back to her baseline. The patient is here on 08/09/2019 with complaints of weakness and pain in the mouth from ulcer and she is on Magic mouthwash and that has improved and at that time she also complained of some neck pain and CAT scan of soft tissue of the neck was done and there is question of A-port irritating the muscle, but she saw general surgery today and found the A-port was in good position.Also since she started on new chemo, in June she is feeling weak and tired. She usually ambulates without support prior, but now she is requiring some help while ambulating. Appetite is okay. She has to be careful with swallowing because of history of esophageal strictures. Denies any cough, no fever, no chills, no nausea, no vomiting, no abdominal pain. Has some mild headache, mild dizziness while ambulating, no blurred vision, no earaches. She has complaints of pain in the nose, some sore throat, pain in the throat. She gets diarrhea from the chemo, but today, she did not have any diarrhea, no blood in the stools or black stools. No hematuria, no burning micturition. No rash, no swelling in the legs. Currently resting comfortably and hemodynamically stable. Admission Exam Per Admitting Provider GENERAL: The patient is old and frail, not in acute distress. VITAL SIGNS: Temperature 36.3, pulse 67, respiratory rate 18, blood pressure 172/86, oxygen 98% room air. HEENT: No pallor, no icterus. Pupils equal, round, reactive. NECK: No JVD, no masses, no carotid bruits. CARDIOVASCULAR: S1, S2, regular rate and rhythm, no murmur, no gallop. A-port site clean. RESPIRATORY SYSTEM: Normal AP diameter. No accessory muscle use. No wheezing, no crackles. ABDOMEN: Soft, bowel sounds present, nontender. No distention. CENTRAL NERVOUS SYSTEM: Cranial nerves are II-XII grossly intact. Coordination was normal. No pronator drift. Can move her extremities. EXTREMITIES: No edema, no erythema. Principal Diagnosis (1) TIA (transient ischemic attack): (2) Ovarian cancer: (3) Diabetes mellitus, type 2: (4) Hypertension: (5) Hypomagnesemia: (6) Hypocalcemia: Discharge Exam See below Discharge Data Allergies Allergy/AdvReac Type Severity Reaction Status Date / Time codeine Allergy Mild Unknown Verified 08/09/19 19:08 Penicillins Allergy Mild UNSURE OF Verified 08/09/19 19:08 REACTION Consultations 08/15/19 22:47 ED Decision to Admit Stat 08/16/19 00:47 Consult Case Management - Discharge Planning Routine Consult Case Management - Discharge Planning Routine 08/16/19 08:00 Consult Neurology Routine Ordered Studies 08/15/19 MR brain wo con Stat 08/16/19 00:31 US carotid doppler BI Routine 08/16/19 16:50 MR brain wo/w con Routine Current Diagnoses Malignant neoplasm of unspecified ovary (08/15/19) Type 2 diabetes mellitus without complications (08/15/19) Hypomagnesemia (08/15/19) Hypocalcemia (08/15/19) Dehydration (08/15/19) Transient cerebral ischemic attack, unspecified (08/15/19) Essential (primary) hypertension (08/15/19) Unspecified symptoms and signs involving the nervous system (08/15/19) Disorientation, unspecified (08/15/19) Weakness (08/15/19) Encounter for prophylactic measures, unspecified (08/15/19) Allergies codeine Allergy (Mild, Verified 08/09/19 19:08) Unknown Penicillins Allergy (Mild, Verified 08/09/19 19:08) UNSURE OF REACTION Height/Weight/Isolation Height 5 ft 1 in Weight 52.1 kg Chemistry 08/17/19 08/18/19 10:45 05:45 Sodium 136 138 Potassium 4.1 D 3.8 Chloride 105 106 Carbon Dioxide 25 25 Anion Gap 6.0 7.0 BUN 12 16 Creatinine 0.65 0.75 Glucose 124 H 146 H Urinalysis 08/17/19 11:25 Urine Color Yellow Urine Appearance Clear Urine pH 6.0 Ur Specific [place] 1.010 Urine Protein 1+ H Urine Glucose (UA) Negative Urine Ketones Negative Urine Blood Negative Urine Nitrite Negative Urine Bilirubin Negative Hospital Course (1) TIA (transient ischemic attack): ASA started this admission. Workup was negative for acute findings on imaging. Currently getting EEG (2) Ovarian cancer: Recurrence and now back on chemo and Avastin through local oncologist. Last chemo was 07/19/2019. Cont per outpatient specialist (3) Diabetes mellitus, type 2: At goal, cont insulin therapy while hospitalized. (4) Hypertension: elevated, hydralazine PRN. Keep her calm and ensure pain is addressed. Cont lisinopril with PRN antihypertensives. (5) Hypomagnesemia: replaced on admission and repeat in am. (6) Hypocalcemia: Was given calcium replacement and felt better. This has resolved. No tetany of muscles. (7) DVT prophylaxis: Lovenox Full code Dispo-uncertain at this time. Labs Checked No Sitter-Back MS baseline per and Neuro Physical Exam Gen-AAO x 3, NAD, Afebrile Head-NCAT, EOMI, PERRLA, Anicteric Sclera, No Posterior Pharyngeal Erythema Neck-Supple, No JVD, No Thyromegaly, No Masses, No LAD, No Bruits Lungs-Clear to Auscultation Bilaterally, No Rales, No Rhonchi, No Wheezing, No Crepitus Chest-No S4, +S1, +S2, No S3, No Murmurs, No Rubs, No Gallops, No Ectopy Abdomen-Soft, Bowel Sounds Present, Non Tender, Non Distended, No Hepatomegaly, No Splenomegaly, No Palpable Masses, No Rebound, No Rigidity, No Guarding Musculoskeletal-Full Range of Motion Bilaterally, No CVAT Extremities-No Cyanosis, No Clubbing, No Edema Nuero-Cranial Nerves II-XII grossly intact, Motor WNL, DTRs WNL, Strength WNL, Non Focal Psych-Normal Mood Total Time Total Time Spent Total Time Spent (In Minutes): 45 mins Total Time Includes: Examination of the Patient, Discharge Planning, Medication Reconciliation and Communication With Other Providers Discharge Plan Discharge Items Patient Disposition: Home - Self-Care Reason For Visit: STROKE-LIKE SYMPTOMS Discharge Diagnosis: (1) TIA (transient ischemic attack): (2) Ovarian cancer: (3) Diabetes mellitus, type 2: (4) Hypertension: (5) Hypomagnesemia: (6) Hypocalcemia: Condition on Discharge: Good Activity: Resume your previous activity Lifting: Gradually increase as tolerated Bathing: No limitations Exercise/Sports: None and Gradually increase as tolerated Driving/Machine Use: none Weightbearing: Full weightbearing Non-emergency contact: Primary Care Provider and Neurologist Call non-emergency contact if: you have any medication questions Follow-up/Referrals: Juliano Miles MD [Primary Care Provider] - (Call for appt that is convenient for you-Hopefully in the next week) Manuel Dorsey MD [Physician] - (Call for Appt) Diet: Carb Consistent or DM2 and Heart Healthy Addtl Attending Provider Instructions: Call Neurology Dr Dorsey and Dr Miles for follow up visits as soon as you can Pending Studies at Discharge: No Stand-Alone Forms: My [facility], Smoking Cessation Medications and DC Order Prescriptions: New aspirin 81 mg Tablet,Delayed Release (Dr/Ec) 81 mg PO QAM Qty: 30 RF: 0 lisinopril 10 mg Tablet 10 mg PO QAM Qty: 30 RF: 0 ergocalciferol (vitamin D2) 1,250 mcg (50,000 unit) Capsule 50,000 unit PO Th@2100 Qty: 5 RF: 0 Continued metformin 500 mg Tablet 500 mg PO BID RF: 0 cyanocobalamin (vitamin B-12) [Vitamin B-12] 1,000 mcg Tablet 1,000 mcg PO QAM RF: 0 glimepiride 1 mg Tablet 1 mg PO UD RF: 0 multivitamin Capsule 1 cap PO QAM RF: 0 tramadol 50 mg tablet 50 mg PO Q6H PRN (Reason: Pain) RF: 0 trazodone 100 mg Tablet 100 mg PO HS PRN (Reason: Insomnia) RF: 0 lorazepam 0.5 mg tablet 0.5 mg PO DAILY PRN (Reason: Anxiety) RF: 0 Lidoc/Child/Antac liquid 15 ml mucous membrane QID PRN (Reason: Mouth Irritation) RF: 0 metoprolol succinate 25 mg Tablet Extended Release 24 Hr 25 mg PO DAILY RF: 0 acetaminophen [Tylenol 8 Hour] 650 mg tablet extended release 650 mg PO Q8H PRN (Reason: Fever Or Pain) RF: 0 ibuprofen [Advil] 200 mg Tablet 400 mg PO Q6H PRN (Reason: Pain) RF: 0 Lidocaine Viscous 2 % solution 1 applic topical UD RF: 0 Discontinued lisinopril 2.5 mg Tablet 2.5 mg PO QAM RF: 0 Discharge Orders: Discharge Order (Routine); Ordered 08/19/19 Ordered By: Sriram Lares Admission Data Admit Date/Time: 08/15/19 22:57 Attending Provider: Sriram Lares Admit Provider: Gasper Vernon Primary Care Provider: Juliano Miles Other Providers: [facility] ; Gasper Vernon ; Caitlyn Cnoway ; Manuel Dorsey ; Caitlyn Quiros ; Grant Lee.
[2019-08-19] MEDS ORDERED: STROKE PATIENT DISCHARGE STA (08:39)
[2019-08-19 09:36] LABS: Hematocrit (blood only) 32.8 % (37-47); Hemoglobin 11.1 g/dL (12.0-16.0); Mean Corpuscular Hemoglobin 31.4 pg (25-34); Mean Corpuscular Hgb Conc 33.8 g/dL (32-36); Mean Corpuscular Volume 92.9 fL (80-100); Mean Platelet Volume 9.7 fL (7.4-10.4); Platelet Count 290 K/uL (130-400); RDW Coefficient of Variation 17.3 % (11.5-14.5); RDW Standard Deviation 58.5 fL (36.4-46.3); Red Blood Count 3.53 M/uL (4.2-5.4); White Blood Count 4.08 K/uL (4.8-10.8)
[2019-08-19] MEDS: ASPIRIN 81 MG ECTAB PO SCH (09:56)
[2019-08-19] MEDS: MULTIVITAMIN TAB PO SCH (09:57)
[2019-08-19] MEDS: METOPROLOL SUCC 25MG EXT REL TAB PO SCH (09:57)
[2019-08-19] MEDS: lisinopriL 10 MG TAB PO SCH (09:57)
[2019-08-19] MEDS: CYANOCOBALAMIN 500 MCG TABLET (VITAMIN B-12) PO SCH (09:58)
[2019-08-19] MEDS: INSULIN ASPART 100 UNITS/ML 3 ML PEN SC SCH (09:58)
[2019-08-19 10:00] LABS: Albumin Level 3.2 gm/dl (3.4-5.0); BUN Creatinine Ratio 17.9 (10-20); Bilirubin,Total 0.7 mg/dl (0.2-1); Calcium 8.5 mg/dl (8.5-10.1); Creatinine Clr Calc Pharmacy 41.5 ml/min; Est GFR (African American) 77.7; Est GFR (Non-African American) 67.1; Globulin 3.2 gm/dl (2.5-4.0); Total Protein 6.4 gm/dl (6.4-8.2)
[2019-08-19] MEDS: ENOXAPARIN INJ 40 MG/0.4 ML SYR SQ SCH (10:21)
--- NOTE | 2019-08-19 10:58 | Pharmacy Report ---
Pharmacist Stroke Counseling - Date of Service August 19, 2019 - Scope: Pharmacy has been consulted to provide medication discharge counseling for this patient admitted with transient ischemic attack as per the Pharmacist Discharge Counseling for Stroke Patients Protocol. - Medications on Discharge: Home Medications Medication Instructions Recorded Confirmed cyanocobalamin (vitamin B-12) 1,000 mcg PO QAM 04/25/19 08/15/19 [Vitamin B-12] glimepiride 1 mg PO UD 04/25/19 08/15/19 metformin 500 mg PO BID 04/25/19 08/15/19 multivitamin 1 cap PO QAM 04/25/19 08/15/19 Lidoc/Child/Antac 15 ml MUCOUS MEMBRANE QID PRN 08/09/19 08/15/19 Lidocaine Viscous 1 applic TOPICAL UD 08/09/19 08/15/19 acetaminophen [Tylenol 8 Hour] 650 mg PO Q8H PRN 08/09/19 08/15/19 ibuprofen [Advil] 400 mg PO Q6H PRN 08/09/19 08/15/19 lorazepam 0.5 mg PO DAILY PRN 08/09/19 08/15/19 metoprolol succinate 25 mg PO DAILY 08/09/19 08/15/19 tramadol 50 mg PO Q6H PRN 08/09/19 08/15/19 trazodone 100 mg PO HS PRN 08/09/19 08/15/19 New Rx's Medication Instructions Recorded aspirin 81 mg PO QAM #30 tab 08/19/19 atorvastatin 20 mg PO DAILY #30 tab 08/19/19 ergocalciferol (vitamin D2) 50,000 unit PO Th@2100 #5 cap 08/19/19 lisinopril 10 mg PO QAM #30 tab 08/19/19 - Action: The above medications, specifically ones for stroke treatment/prophylaxis, have been reviewed in detail with the patient and/or patient personal financial representative(s) prior to discharge. This includes indication, common adverse reactions, drug interactions, and medication administration. Medication counseling has been employed using the teach-back method to ensure understanding. - Outcome: The patient and/or patient personal financial representative(s) have demonstrated understanding of the medications. Please note, they are aware that the pharmacist will call them within 72 hours post-discharge to confirm that the appropriate medications are being taken and answer any further medication related questions the patient might have at that time. Contact information Individual to be contacted: Moo Relationship to patient (if applicable): Phone number: [phone]; [phone] (cell) Best time to call: anytime Additional comments: * Met with patient, and daughter to review medication list * Pillbox provided * New meds: ASA, vitamin D and Lipitor (reviewed ASA and Lipitor in detail since these are for stroke prevention) * Patient not initially prescribed a statin on discharge but questioned if this should be added for TIA diagnosis, even if findings were nonspecific. Medium intensity statin added - in agreement d/t advanced age/total cholesterol < 150 * Changed meds: lisinopril increased to 10 mg * Also confirmed that patient takes glimepiride as needed, only when her BSGs are high Thank you for allowing pharmacy to be involved in the care of this patient. Please call [phone] or [phone] with any additional questions
--- NOTE | 2019-08-22 10:59 | Pharmacy Report ---
Pharmacist Post D/C Phone Note - Phone Note: Date of phone call: August 22, 2019. Individual with whom pharmacist spoke to: SHI Lila REILLY The following questions were reviewed during the phone call with responses listed below each: Can you tell me the medications that you are currently taking as well as when and how you take each medication? -See Table Below When have you missed any doses of your medications? - none What side effects are you having from your medications, specifically, the new medications you were started on? - nothing mentioned but unable to complete phone call What questions do you have about your medications? - none What problems are you having obtaining your medications? - none When is your next appointment with your primary care doctor? - unknown Additional comments: - patient stated that Josey did an excellent job explaining medications. He had no questions. Patient felt weak that was all. Phone call cut short but someone at the door. As per the Pharmacist Discharge Counseling for Stroke Patients Protocol, this phone call has been completed within 72 hours of discharge. Thank you for allowing us to be involved in the care of this patient. - Home Medications: Home Medications Medication Instructions Recorded Confirmed cyanocobalamin (vitamin B-12) 1,000 mcg PO QAM 04/25/19 08/15/19 [Vitamin B-12] glimepiride 1 mg PO UD 04/25/19 08/15/19 metformin 500 mg PO BID 04/25/19 08/15/19 multivitamin 1 cap PO QAM 04/25/19 08/15/19 Lidoc/Child/Antac 15 ml MUCOUS MEMBRANE QID PRN 08/09/19 08/15/19 Lidocaine Viscous 1 applic TOPICAL UD 08/09/19 08/15/19 acetaminophen [Tylenol 8 Hour] 650 mg PO Q8H PRN 08/09/19 08/15/19 ibuprofen [Advil] 400 mg PO Q6H PRN 08/09/19 08/15/19 lorazepam 0.5 mg PO DAILY PRN 08/09/19 08/15/19 metoprolol succinate 25 mg PO DAILY 08/09/19 08/15/19 tramadol 50 mg PO Q6H PRN 08/09/19 08/15/19 trazodone 100 mg PO HS PRN 08/09/19 08/15/19 New Rx's Medication Instructions Recorded aspirin 81 mg PO QAM #30 tab 08/19/19 atorvastatin 20 mg PO DAILY #30 tab 08/19/19 ergocalciferol (vitamin D2) 50,000 unit PO Th@2100 #5 cap 08/19/19 lisinopril 10 mg PO QAM #30 tab 08/19/19
== END 2019-08-19 11:07 | disposition home health service (06) | DRG 69 ==
LOC: ED 17:36 → EDINP 22:57 → SUATTDRO 22:57 → 2S 08-16 11:14 → 2W 08-17 19:03 → 4W 08-18 23:57

== ENCOUNTER 2019-11-14 03:53 | Inpatient (IN) ==
--- NOTE | 2019-11-14 04:29 | Emergency Department Note ---
History of Present Illness General Chief complaint: Altered Mental Status Stated complaint: Altered mental status Time Seen by Provider: 11/14/19 03:57 Source: family and EMS Mode of arrival: EMS Limitations: altered mental status History of Present Illness Provider complaint: altered mental status Onset (ago): unknown This is an 79-year-old female who presents from home via EMS due to an u nresponsive episode and altered mental status. HPI is limited from the patient due to her altered mental status. History was obtained through the who I spoke with in the waiting room. states the patient does have early stages of dementia and has good days and bad days. He states today was more of a "bad day". States patient complained of some slight tiredness in her legs today which she states is not uncommon and intermittently occurs. He denies any falls or injury. No lower extremity swelling. States no recent change in any of the patient's medications. No change in bowel or bladder function, no change in appetite. States he has not noticed any recent symptoms to suggest the patient was ill. He himself has not been sick. Patient gets chemotherapy once a month for ongoing treatment for ovarian cancer. Patient also has a prior history of breast cancer. He states they both went to bed around 9 PM, at that time patient also took a medication to help her sleep. He states around 2 AM she asked him to help her to go to the bathroom. He states he must of fallen back asleep because when he woke up again more than an hour later he noticed that the bathroom light was on and the door was open. He went in to find her sitting on their handicap compliant toilet and armrests, with her head back and eyes open. Patient did not respond when he called her name or shook her. He states there is no seizure-like activity. States eyes were not rolled back in her head. States he did not notice any abnormal breathing. States he called 911 as she seemed unresponsive. He states prior to arrival of the ambulance, patient stated "Randy help me". Which was the first that she had spoken during this episode. EMS reported a normal prehospital check of blood sugar, stable vital signs in route. Pt seen during a time of high acuity and national emergency pandemic while wearing PPE. Home Medications Home Medications Medication Instructions Recorded Confirmed Type cyanocobalamin (vitamin B-12) 1,000 mcg PO QAM 04/25/19 11/14/19 History [Vitamin B-12] glimepiride 1 mg PO UD 04/25/19 11/14/19 History multivitamin 1 cap PO QAM 04/25/19 11/14/19 History Lidoc/Child/Antac 15 ml MUCOUS MEMBRANE QID PRN 08/09/19 11/14/19 History acetaminophen [Tylenol 8 Hour] 650 mg PO Q8H PRN 08/09/19 11/14/19 History ibuprofen [Advil] 400 mg PO Q6H PRN 08/09/19 11/14/19 History metoprolol succinate 25 mg PO DAILY 08/09/19 11/14/19 History aspirin 81 mg PO QAM #30 tab 08/19/19 11/14/19 Rx ergocalciferol (vitamin D2) 50,000 unit PO Th@2100 #5 cap 08/19/19 11/14/19 Rx lisinopril 2.5 mg PO DAILY 11/14/19 11/14/19 History sertraline [Zoloft] 50 mg PO HS 11/14/19 11/14/19 History potassium chloride [Klor-Con M20] 20 meq PO BID #10 tab 11/16/19 Rx Allergies Allergy/AdvReac Type Severity Reaction Status Date / Time codeine Allergy Mild Unknown Verified 11/14/19 04:39 Penicillins Allergy Mild UNSURE OF Verified 11/14/19 04:39 REACTION Past Med/Surg History Medical History Breast cancer (Resolved) Cancer OVARIAN CANCER AND FOUND NODULE IN DUODENUM AREA AND WILL START CHEMO AFTER THANKSGI 2019 Diabetes mellitus, type 2 Facial laceration (Acute) GERD (gastroesophageal reflux disease) Head injury (Acute) Hypertension Surgical History History of colon resection History of tonsillectomy Hx of colonoscopy Hx of eye surgery UNSURE SOMETHING TO DO WITH RETINA Hx of hysterectomy BSO Social History Preferred Language: Yoruba Communication Ability: Impaired Communication Ability Comment: hard of hearing Verification Lead Required: No Beliefs That Will Affect Care: None marital status: Current Living Situation: Spouse Other Information That Helps Us Care for You: No Feels Safe at Home: Yes Safety Concerns: Feels Safe At This Time Smoking Status: Never smoker Do You Dip or Chew Tobacco: No ; Second Hand Exposure: No ; Hx Alcohol Use: No Hx Substance Use: No Review of Systems See HPI for pertinent positives & negatives. and A total of 10 systems reviewed and were otherwise negative Physical Exam Vital Signs Vital Signs - 24 hr 11/14/19 04:00 11/14/19 04:14 11/14/19 04:30 Temperature 36.8 C Temperature Source Oral Pulse Rate 54 L 53 L Pulse Rate [Apical] Pulse Rate from SpO2 Sensor 55 L Pulse Rhythm [Apical] Respiratory Rate 20 14 Respiratory Effort / Characteristics Non-Labored Spontaneous Respiratory Depth Normal Respiratory Pattern Blood Pressure 156/78 H 131/71 Blood Pressure [Left Arm] Blood Pressure Mean 104 86 Blood Pressure Mean [Left Arm] Blood Pressure Position Lying Pulse Oximetry 95 95 95 Oxygen Delivery Method Room Air Room Air Sepsis Recent Fever Within 48 Hours No Sepsis Action Taken by Nursing No Action Required 11/14/19 05:06 11/14/19 05:07 11/14/19 05:31 Temperature Temperature Source Pulse Rate 55 L 52 L Pulse Rate [Apical] Pulse Rate from SpO2 Sensor 53 L 51 L Pulse Rhythm [Apical] Respiratory Rate 23 19 Respiratory Effort / Characteristics Respiratory Depth Respiratory Pattern Blood Pressure 170/80 H 157/71 H Blood Pressure [Left Arm] Blood Pressure Mean 98 87 Blood Pressure Mean [Left Arm] Blood Pressure Position Pulse Oximetry 96 95 95 Oxygen Delivery Method Room Air Room Air Room Air Sepsis Recent Fever Within 48 Hours Sepsis Action Taken by Nursing 11/14/19 06:22 11/14/19 07:23 11/14/19 08:00 Temperature Temperature Source Pulse Rate 55 L Pulse Rate [Apical] 52 L 53 L Pulse Rate from SpO2 Sensor 54 L Pulse Rhythm [Apical] Regular Regular Respiratory Rate 24 16 16 Respiratory Effort / Characteristics Non-Labored Spontaneous Non-Labored Spontaneous Respiratory Depth Normal Normal Respiratory Pattern Regular Regular Blood Pressure 181/80 H Blood Pressure [Left Arm] 174/82 H 197/89 H Blood Pressure Mean 97 Blood Pressure Mean [Left Arm] 112 125 Blood Pressure Position Pulse Oximetry 95 97 96 Oxygen Delivery Method Room Air Room Air Room Air Sepsis Recent Fever Within 48 Hours Sepsis Action Taken by Nursing GENERAL: alert, ill appearing, cachectic, no distress, non-toxic EYE EXAM: normal conjunctiva, PERRL and EOM's grossly intact OROPHARYNX: no exudate, no erythema, lips, buccal mucosa, and tongue normal and mucous membranes are moist NECK: supple, no nuchal rigidity, no adenopathy, non-tender LUNGS: Clear to auscultation. Normal chest wall mechanics, no w/r/r HEART: no murmurs, S1 normal and S2 normal, port noted left anterior superior chest wall, obvious surgery to breasts with subsequent reconstruction ABDOMEN: abdomen soft, mild generalized tenderness with palpation, normo-active bowel sounds, no masses, no rebound or guarding. BACK: Back is symmetrical on inspection and there is no deformity, no midline tenderness, no CVA tenderness. SKIN: no rashes and no bruising UPPER EXTREMITIES: upper extremities are grossly normal. FROM, nml pulses b/l. LOWER EXTREMITIES: No pitting edema. FROM, nml pulses b/l. NEURO EXAM: Patient will open eyes and wake up to voice, will answer a few yes/no questions, otherwise cannot provide any additional history. Patient will not cooperate for any additional neuro testing. Course Course 0400: Discussed with for history. 0630: Updated at bedside. 0735: Discussed with hospitalist team. She would like vanc/zosyn, blood cultures, procal, and COVID testing added to order. Administered Medications Discontinued Medications Aspirin (Ecotrin Ectab) 81 mg PO DAILY@0800 [facility] Stop: 12/15/19 07:59 Last Admin: 11/16/19 09:34 Dose: Not Given Documented by: [id number] Admin: 11/15/19 09:53 Dose: Not Given Documented by: [id number] Atorvastatin Calcium (Lipitor) 20 mg PO DAILY@0800 [facility] Stop: 12/15/19 07:59 Last Admin: 11/16/19 09:36 Dose: Not Given Documented by: [id number] Admin: 11/15/19 09:53 Dose: Not Given Documented by: [id number] Cyanocobalamin (Vitamin B-12) 1,000 mcg PO DAILY@0800 [facility] Stop: 12/15/19 07:59 Last Admin: 11/16/19 09:36 Dose: Not Given Documented by: [id number] Admin: 11/15/19 09:54 Dose: Not Given Documented by: [id number] Haloperidol Lactate (Haldol) 2 mg IM NOW STA Stop: 11/14/19 22:16 Last Admin: 11/14/19 22:20 Dose: 2 mg Documented by: [id number] Haloperidol Lactate (Haldol) Confirm Administered Dose 5 mg .ROUTE .STK-MED ONE Stop: 11/14/19 22:19 Last Admin: 11/14/19 22:21 Dose: Not Given Documented by: [id number] Haloperidol Lactate (Haldol) 2 mg IM NOW STA Stop: 11/15/19 05:52 Last Admin: 11/15/19 06:20 Dose: 2 mg Documented by: [id number] Haloperidol Lactate (Haldol) Confirm Administered Dose 5 mg .ROUTE .ST-MED ONE Stop: 11/15/19 05:59 Last Admin: 11/15/19 06:26 Dose: Not Given Documented by: [id number] Heparin Sodium (Beef Lung) (Heparin Sod 10 Unit/Ml Flush) Confirm Administered Dose 5 ml FLUSH .[facility] ONE Stop: 11/15/19 10:54 Last Admin: 11/15/19 10:58 Dose: 5 ml Documented by: [id number] Hydralazine HCl (Hydralazine Hcl) 2.5 mg IV NOW ONE Stop: 11/14/19 18:30 Last Admin: 11/14/19 19:59 Dose: 2.5 mg Documented by: [id number] Sodium Chloride (Nss 1000ml) 1,000 mls @ 125 mls/hr IV .Q8H [facility] Stop: 12/14/19 04:29 Last Admin: 11/14/19 15:41 Dose: Not Given Documented by: [id number] Infusion: 11/14/19 14:02 Dose: 0 mls/hr Documented by: [id number] Admin: 11/14/19 05:08 Dose: 125 mls/hr Documented by: [id number] Magnesium Sulfate/Dextrose (Magnesium Sulfate / D5w) 1 gm in 100 mls @ 100 mls/hr IV Q1H [facility] Stop: 11/14/19 08:00 Last Infusion: 11/14/19 08:40 Dose: 0 mls/hr Documented by: [id number] Admin: 11/14/19 07:23 Dose: 100 mls/hr Documented by: [id number] Infusion: 11/14/19 07:23 Dose: 100 mls/hr Documented by: [id number] Admin: 11/14/19 06:23 Dose: 100 mls/hr Documented by: [id number] Cefepime HCl (Maxipime) 2,000 mg in 20 mls @ 5 mls/min IV NOW STA Stop: 11/14/19 08:22 Last Admin: 11/14/19 08:43 Dose: 5 mls/min Documented by: [id number] Vancomycin HCl 1,000 mg/ (Sodium Chloride) 520 mls @ 200 mls/hr IV NOW ONE Stop: 11/14/19 10:54 Last Infusion: 11/14/19 11:21 Dose: 0 mls/hr Documented by: [id number] Admin: 11/14/19 08:43 Dose: 200 mls/hr Documented by: [id number] Cefepime HCl 2,000 mg/ Syringe 20 mls @ 5 mls/min IV Q12H [facility]; Protocol Stop: 11/16/19 19:59 Last Admin: 11/16/19 09:42 Dose: 5 mls/min Documented by: [id number] Admin: 11/15/19 23:34 Dose: 5 mls/min Documented by: [id number] Admin: 11/15/19 09:35 Dose: 5 mls/min Documented by: [id number] Admin: 11/14/19 20:39 Dose: 5 mls/min Documented by: [id number] Vancomycin HCl 750 mg/ Sodium (Chloride) 265 mls @ 125 mls/hr IV Q18H [facility] Stop: 11/17/19 01:59 Last Infusion: 11/16/19 04:46 Dose: 0 mls/hr Documented by: [id number] Admin: 11/15/19 23:34 Dose: 125 mls/hr Documented by: [id number] Infusion: 11/15/19 05:30 Dose: 0 mls/hr Documented by: [id number] Admin: 11/15/19 03:17 Dose: 125 mls/hr Documented by: [id number] Metronidazole (Flagyl) 500 mg in 100 mls @ 100 mls/hr IV Q8H [facility] Stop: 11/21/19 18:14 Last Infusion: 11/16/19 10:49 Dose: 0 mls/hr Documented by: [id number] Admin: 11/16/19 09:42 Dose: 100 mls/hr Documented by: [id number] Infusion: 11/16/19 04:44 Dose: 0 mls/hr Documented by: [id number] Admin: 11/16/19 02:00 Dose: 100 mls/hr Documented by: [id number] Infusion: 11/15/19 19:25 Dose: 0 mls/hr Documented by: [id number] Admin: 11/15/19 18:15 Dose: 100 mls/hr Documented by: [id number] Infusion: 11/15/19 10:39 Dose: 0 mls/hr Documented by: [id number] Admin: 11/15/19 09:37 Dose: 100 mls/hr Documented by: [id number] Infusion: 11/15/19 03:00 Dose: 0 mls/hr Documented by: [id number] Admin: 11/15/19 01:55 Dose: 100 mls/hr Documented by: [id number] Infusion: 11/14/19 20:25 Dose: 0 mls/hr Documented by: [id number] Admin: 11/14/19 19:20 Dose: 100 mls/hr Documented by: [id number] Magnesium Sulfate/Dextrose (Magnesium Sulfate / D5w) 1 gm in 100 mls @ 50 mls/hr IV 1900 ONE Stop: 11/14/19 20:59 Last Infusion: 11/14/19 21:25 Dose: 0 mls/hr Documented by: [id number] Admin: 11/14/19 19:20 Dose: 50 mls/hr Documented by: [id number] Magnesium Sulfate/Dextrose (Magnesium Sulfate / D5w) 1 gm in 100 mls @ 50 mls/hr IV Q2H [facility] Stop: 11/15/19 16:44 Last Infusion: 11/15/19 16:45 Dose: 0 mls/hr Documented by: [id number] Admin: 11/15/19 14:41 Dose: 50 mls/hr Documented by: [id number] Infusion: 11/15/19 14:41 Dose: 50 mls/hr Documented by: [id number] Admin: 11/15/19 13:09 Dose: 50 mls/hr Documented by: [id number] Ioversol (Optiray 320 100ml) 100 ml IV ONCE PRN PRN Reason: Interaction Checking Stop: 11/18/19 06:24 Last Admin: 11/14/19 06:25 Dose: 93 ml Documented by: [id number] Lisinopril (Zestril) 2.5 mg PO DAILY [facility] Stop: 12/14/19 10:59 Last Admin: 11/14/19 12:19 Dose: 2.5 mg Documented by: [id number] Lisinopril (Zestril) 2.5 mg PO DAILY@0800 [facility] Stop: 12/15/19 07:59 Last Admin: 11/16/19 12:40 Dose: 2.5 mg Documented by: [id number] Admin: 11/15/19 09:54 Dose: Not Given Documented by: [id number] Metoprolol Succinate (Toprol Xl) 25 mg PO DAILY [facility] Stop: 12/14/19 10:59 Last Admin: 11/14/19 12:19 Dose: 25 mg Documented by: [id number] Metoprolol Succinate (Toprol Xl) 25 mg PO DAILY@0800 [facility] Stop: 12/15/19 07:59 Last Admin: 11/16/19 12:39 Dose: 25 mg Documented by: [id number] Admin: 11/15/19 09:53 Dose: Not Given Documented by: [id number] Multivitamins (Multivitamin Tab) 1 tab PO DAILY@0800 [facility] Stop: 12/15/19 07:59 Last Admin: 11/16/19 09:34 Dose: Not Given Documented by: [id number] Admin: 11/15/19 09:53 Dose: Not Given Documented by: [id number] Olanzapine (Zyprexa) 2.5 mg IM Q4H PRN PRN Reason: Anxiety/Agitation Stop: 12/14/19 20:40 Last Admin: 11/15/19 19:57 Dose: 2.5 mg Documented by: [id number] Admin: 11/15/19 11:07 Dose: 2.5 mg Documented by: [id number] Admin: 11/15/19 06:22 Dose: 2.5 mg Documented by: [id number] Admin: 11/14/19 21:17 Dose: 2.5 mg Documented by: [id number] Potassium Chloride (Klor-Con M20) 20 meq PO BID [facility] Stop: 12/16/19 10:29 Last Admin: 11/16/19 12:38 Dose: 20 meq Documented by: [id number] Sertraline HCl (Zoloft) 50 mg PO HS@2000 [facility] Stop: 12/14/19 19:59 Last Admin: 11/15/19 23:35 Dose: Not Given Documented by: [id number] Admin: 11/14/19 20:31 Dose: Not Given Documented by: [id number] Ziprasidone (Geodon) 10 mg IM Q6H PRN PRN Reason: Agitation Stop: 12/15/19 11:14 Last Admin: 11/16/19 08:25 Dose: 10 mg Documented by: [id number] Medical Decision Making Differential Diagnosis Differential diagnoses includes but is not limited to toxic, metabolic, infectious, traumatic, cardiac, neurologic, hematologic, psychiatric and inflammatory etiologies. Medical Records Attestation: I reviewed the patient's medical records. Home Medications Current Medication List: was personally reviewed by me Laboratory Data Attestation: I reviewed the patient's lab results. Result diagrams: 11/16/19 07:19 11/16/19 07:19 Lab Results 11/14/19 11/14/19 11/14/19 Range/Units 04:08 04:26 04:55 WBC 3.64 L (4.8-10.8) K/uL RBC 2.93 L (4.2-5.4) M/uL Hgb 8.9 L (12.0-16.0) g/dL Hct 26.1 L (37-47) % MCV 89.1 (80-100) fL MCH 30.4 (25-34) pg MCHC 34.1 (32-36) g/dL RDW Std Deviation 48.9 H (36.4-46.3) fL RDW Coeff of Ninoska 14.9 H (11.5-14.5) % Plt Count 72 L (130-400) K/uL MPV 10.8 H (7.4-10.4) fL Immature Gran % (Auto) 0.5 % Neut % (Auto) 75.9 % Lymph % (Auto) 18.7 % Mcdonald % (Auto) 4.1 % Eos % (Auto) 0.8 % Baso % (Auto) 0.0 % Immature Gran # (Auto) 0.02 (0.00-0.02) K/uL Neut # (Auto) 2.76 (1.4-6.5) K/uL Lymph # (Auto) 0.68 L (1.2-3.4) K/uL Mcdonald # (Auto) 0.15 (0.11-0.59) K/uL Eos # (Auto) 0.03 (0-0.5) K/uL Baso # (Auto) 0.00 (0-0.2) K/uL Platelet Estimate Decreased L (Normal) PT (9.0-12.0) Seconds INR (0.9-1.1) Sodium (136-145) mmol/L Potassium (3.5-5.1) mmol/L Chloride (98-107) mmol/L Carbon Dioxide (21-32) mmol/L Anion Gap (3-11) BUN (7-18) mg/dl Creatinine (0.6-1.2) mg/dl Est Cr Clr Drug Dosing Est GFR ( Amer) Est GFR (Non-Af Amer) BUN/Creatinine Ratio (10-20) Glucose (70-99) mg/dl POC Glucose 121 H (70-99) mg/dl Calcium (8.5-10.1) mg/dl Magnesium (1.8-2.4) mg/dl Total Bilirubin (0.2-1) mg/dl AST (15-37) U/L ALT (12-78) U/L Alkaline Phosphatase (45-117) U/L Troponin I (0-0.045) ng/ml NT-Pro-B Natriuret Pep (0-1800) pg/ml Total Protein (6.4-8.2) gm/dl Albumin (3.4-5.0) gm/dl Globulin (2.5-4.0) gm/dl Albumin/Globulin Ratio (0.9-2) Lipase (73-393) U/L Procalcitonin (0-0.5) ng/ml TSH (0.300-4.500) uIu/ml Urine Color Yellow Urine Appearance Clear (Clear) Urine pH 6.0 (4.5-7.5) Ur Specific [place] 1.012 (1.000-1.030) Urine Protein 3+ H (Negative) Urine Glucose (UA) Negative (Negative) Urine Ketones Negative (Negative) Urine Blood Negative (Negative) Urine Nitrite Negative (Negative) Urine Bilirubin Negative (Negative) Urine Urobilinogen Negative (Negative) Ur Leukocyte Esterase Negative (Negative) Urine WBC (Auto) 1-5 (0-5) /hpf Urine RBC (Auto) 0-4 (0-4) /hpf U Hyaline Cast (Auto) 1-5 (0-5) /lpf U Epithel Cells (Auto) 20-30 H (0-5) /lpf Urine Bacteria (Auto) Negative (Negative) COVID-19 PCR (Negative) 11/14/19 11/14/19 11/14/19 Range/Units 04:55 04:55 05:07 WBC (4.8-10.8) K/uL RBC (4.2-5.4) M/uL Hgb (12.0-16.0) g/dL Hct (37-47) % MCV (80-100) fL MCH (25-34) pg MCHC (32-36) g/dL RDW Std Deviation (36.4-46.3) fL RDW Coeff of Ninoska (11.5-14.5) % Plt Count (130-400) K/uL MPV (7.4-10.4) fL Immature Gran % (Auto) % Neut % (Auto) % Lymph % (Auto) % Mcdonald % (Auto) % Eos % (Auto) % Baso % (Auto) % Immature Gran # (Auto) (0.00-0.02) K/uL Neut # (Auto) (1.4-6.5) K/uL Lymph # (Auto) (1.2-3.4) K/uL Mcdonald # (Auto) (0.11-0.59) K/uL Eos # (Auto) (0-0.5) K/uL Baso # (Auto) (0-0.2) K/uL Platelet Estimate (Normal) PT 11.0 (9.0-12.0) Seconds INR 1.0 (0.9-1.1) Sodium 134 L (136-145) mmol/L Potassium 4.0 (3.5-5.1) mmol/L Chloride 101 (98-107) mmol/L Carbon Dioxide 28 (21-32) mmol/L Anion Gap 5.0 (3-11) BUN 18 (7-18) mg/dl Creatinine 0.77 (0.6-1.2) mg/dl Est Cr Clr Drug Dosing Not Reportable Est GFR ( Amer) 84.5 Est GFR (Non-Af Amer) 72.9 BUN/Creatinine Ratio 23.3 H (10-20) Glucose 101 H (70-99) mg/dl POC Glucose (70-99) mg/dl Calcium 8.0 L (8.5-10.1) mg/dl Magnesium 0.8 L* (1.8-2.4) mg/dl Total Bilirubin 0.6 (0.2-1) mg/dl AST 39 H (15-37) U/L ALT 29 (12-78) U/L Alkaline Phosphatase 58 (45-117) U/L Troponin I 0.064 H* (0-0.045) ng/ml NT-Pro-B Natriuret Pep 1196 (0-1800) pg/ml Total Protein 5.9 L (6.4-8.2) gm/dl Albumin 3.1 L (3.4-5.0) gm/dl Globulin 2.8 (2.5-4.0) gm/dl Albumin/Globulin Ratio 1.1 (0.9-2) Lipase 80 (73-393) U/L Procalcitonin 0.09 (0-0.5) ng/ml TSH 2.730 (0.300-4.500) uIu/ml Urine Color Urine Appearance (Clear) Urine pH (4.5-7.5) Ur Specific [place] (1.000-1.030) Urine Protein (Negative) Urine Glucose (UA) (Negative) Urine Ketones (Negative) Urine Blood (Negative) Urine Nitrite (Negative) Urine Bilirubin (Negative) Urine Urobilinogen (Negative) Ur Leukocyte Esterase (Negative) Urine WBC (Auto) (0-5) /hpf Urine RBC (Auto) (0-4) /hpf U Hyaline Cast (Auto) (0-5) /lpf U Epithel Cells (Auto) (0-5) /lpf Urine Bacteria (Auto) (Negative) COVID-19 PCR (Negative) 11/14/19 Range/Units 07:45 WBC (4.8-10.8) K/uL RBC (4.2-5.4) M/uL Hgb (12.0-16.0) g/dL Hct (37-47) % MCV (80-100) fL MCH (25-34) pg MCHC (32-36) g/dL RDW Std Deviation (36.4-46.3) fL RDW Coeff of Ninoska (11.5-14.5) % Plt Count (130-400) K/uL MPV (7.4-10.4) fL Immature Gran % (Auto) % Neut % (Auto) % Lymph % (Auto) % Mcdonald % (Auto) % Eos % (Auto) % Baso % (Auto) % Immature Gran # (Auto) (0.00-0.02) K/uL Neut # (Auto) (1.4-6.5) K/uL Lymph # (Auto) (1.2-3.4) K/uL Mcdonald # (Auto) (0.11-0.59) K/uL Eos # (Auto) (0-0.5) K/uL Baso # (Auto) (0-0.2) K/uL Platelet Estimate (Normal) PT (9.0-12.0) Seconds INR (0.9-1.1) Sodium (136-145) mmol/L Potassium (3.5-5.1) mmol/L Chloride (98-107) mmol/L Carbon Dioxide (21-32) mmol/L Anion Gap (3-11) BUN (7-18) mg/dl Creatinine (0.6-1.2) mg/dl Est Cr Clr Drug Dosing Est GFR ( Amer) Est GFR (Non-Af Amer) BUN/Creatinine Ratio (10-20) Glucose (70-99) mg/dl POC Glucose (70-99) mg/dl Calcium (8.5-10.1) mg/dl Magnesium (1.8-2.4) mg/dl Total Bilirubin (0.2-1) mg/dl AST (15-37) U/L ALT (12-78) U/L Alkaline Phosphatase (45-117) U/L Troponin I (0-0.045) ng/ml NT-Pro-B Natriuret Pep (0-1800) pg/ml Total Protein (6.4-8.2) gm/dl Albumin (3.4-5.0) gm/dl Globulin (2.5-4.0) gm/dl Albumin/Globulin Ratio (0.9-2) Lipase (73-393) U/L Procalcitonin (0-0.5) ng/ml TSH (0.300-4.500) uIu/ml Urine Color Urine Appearance (Clear) Urine pH (4.5-7.5) Ur Specific [place] (1.000-1.030) Urine Protein (Negative) Urine Glucose (UA) (Negative) Urine Ketones (Negative) Urine Blood (Negative) Urine Nitrite (Negative) Urine Bilirubin (Negative) Urine Urobilinogen (Negative) Ur Leukocyte Esterase (Negative) Urine WBC (Auto) (0-5) /hpf Urine RBC (Auto) (0-4) /hpf U Hyaline Cast (Auto) (0-5) /lpf U Epithel Cells (Auto) (0-5) /lpf Urine Bacteria (Auto) (Negative) COVID-19 PCR NEGATIVE (Negative) Imaging Data My Impression: X-ray: I interpreted the following studies. Chest: A single view study of the chest was reviewed and was negative for cardiomegaly, focal inf iltrate, effusion, pulmonary edema, or wide mediastinum. Port noted in usual position. Radiologist's Impression: CT abdomen and pelvis with contrast: The liver, spleen, pancreas and gallbladder appear normal. There is a large hiatal hernia and there is some gastric wall thickening. Small bowel, colon, and appendix appear normal. Adrenals, kidneys, ureters and the bladder appeared normal. Uterus is not visualized. There is some prominent vascular structures in the left adnexa suggesting ovarian varices. There are bilateral breast implants. Impression: Large hiatal hernia. Gastric thickening suggesting gastritis. Left ovarian varices. Radiologist: Jensen Cook MD CT head: No ICH, mass-effect or edema. No evidence of acute cortical stroke. Visualized sinuses and mastoid air cells are clear. Radiologist: Jensen Cook MD CT L-spine: There is anterior wedging of the superior endplate of L1 with anterior osteophyte formation and some sclerosis. The appearance suggests a chronic compression fracture. There is 5 mm anterior subluxation of L4 relative to L5 with a small disc bulge. There is no central spinal canal stenosis. Impression: Compression deformity at L1 likely reflects an old fracture deformity. Correlation with history and previous studies including prior lateral chest radiographs is recommended. Radiologist: Jensen Cook MD ECG Data Attestation: I personally reviewed and interpreted this ECG as follows: Indication: + altered mental status Rate (beats per minute): 62 Rhythm: + normal sinus ECG Intervals/blocks: + Normal QRS and + Normal QT ECG [place]: + Normal ECG ST segments: + Normal ST segments Blood Pressure Blood Pressure Findings: Elevated blood pressure Blood Pressure Disposition: further management by hospitalist MDM Narrative Pt presenting for altered mental status after unresponsive episode at home. VS stable. Pt was responsive here although not following all commands and seemed slightly disoriented. Ct head without acute pathology. Pt pancytopenic likely from ongoing chemo. Unclear if syncopal event, possible seizure, dehydration, or other etiology. No evidence of bacteremia/sepsis. No recent illness. Pt with elevated troponin, no ekg changes, no complaints of chest pain. I do not suspect ACS, more likely demand related. No evidence of DKA. An order was placed for continuous cardiac monitoring. The monitor shows a rate of 90_ with noraml sinus rhythm. Impression & Plan Acute alteration in mental status, Hypomagnesemia, Ovarian cancer, Pancytopenia Discharge Plan Visit Data *Final* Discharge Date/Time: 11/14/19 12:37 Chief Complaint: Altered Mental Status Stated Complaint: Altered mental status ED Provider: Elli Valdivia Discharge Problem: Acute alteration in mental status, Hypomagnesemia, Ovarian cancer, Pancytopenia Patient Disposition: Admitted As Inpatient Condition: Good Discharge Instructions Interventions: ED Discharge Assessment Last Done: 11/14/19 12:37 Discharge Problem: Ovarian cancer Qualifiers: Laterality: unspecified laterality Qualified Code(s): C56.9 - Malignant neoplasm of unspecified ovary
[2019-11-14 04:33] LABS: Appearance Urine Clear (Clear); Bacteria Urine Automated Negative (Negative); Bilirubin Urine Negative (Negative); Blood Urine Negative (Negative); Color Urine Yellow; Epithelial Cell Urine Auto 20-30 /lpf (0-5); Glucose Urine UA Negative (Negative); Ketones Urine Negative (Negative); Leukocyte Esterase Urine Negative (Negative); Nitrite Urine Negative (Negative); Protein Urine 3+ (Negative); RBC Urine Automated 0-4 /hpf (0-4); Specific Gravity Urine 1.012 (1.000-1.030); Urobilinogen Urine Negative (Negative)
[2019-11-14] MEDS: SODIUM CHLORIDE 0.9% 1000ML 1,000 ML IV SCH ×2 (05:08→15:41)
[2019-11-14 05:14] LABS: Hematocrit (blood only) 26.1 % (37-47); Hemoglobin 8.9 g/dL (12.0-16.0); Mean Corpuscular Hemoglobin 30.4 pg (25-34); Mean Corpuscular Hgb Conc 34.1 g/dL (32-36); Mean Corpuscular Volume 89.1 fL (80-100); RDW Coefficient of Variation 14.9 % (11.5-14.5); RDW Standard Deviation 48.9 fL (36.4-46.3); Red Blood Count 2.93 M/uL (4.2-5.4); White Blood Count 3.64 K/uL (4.8-10.8)
[2019-11-14 05:37] LABS: Mean Platelet Volume 10.8 fL (7.4-10.4); Platelet Count 72 K/uL (130-400)
[2019-11-14 05:39] LABS: Eosinophils # (auto) 0.03 K/uL (0-0.5); Eosinophils % (auto) 0.8 %; Immature Granulocytes # (auto) 0.02 K/uL (0.00-0.02); Immature Granulocytes % (auto) 0.5 %; Lymphocytes # (auto) 0.68 K/uL (1.2-3.4); Lymphocytes % (auto) 18.7 %; Monocytes # (auto) 0.15 K/uL (0.11-0.59); Monocytes % (auto) 4.1 %; Neutrophils # (auto) 2.76 K/uL (1.4-6.5); Neutrophils % (auto) 75.9 %; Platelet Estimate Decreased (Normal)
[2019-11-14 05:51] LABS: Alanine Aminotransferase 29 U/L (12-78); Albumin Globulin Ratio 1.1 (0.9-2); Albumin Level 3.1 gm/dl (3.4-5.0); Alkaline Phosphatase 58 U/L (45-117); Aspartate Aminotransferase 39 U/L (15-37); BUN Creatinine Ratio 23.3 (10-20); Bilirubin,Total 0.6 mg/dl (0.2-1); Blood Urea Nitrogen 18 mg/dl (7-18); Carbon Dioxide 28 mmol/L (21-32); Chloride 101 mmol/L (98-107); Est GFR (African American) 84.5; Est GFR (Non-African American) 72.9; Globulin 2.8 gm/dl (2.5-4.0); Glucose 101 mg/dl (70-99); Lipase 80 U/L (73-393); Magnesium 0.8 mg/dl (1.8-2.4); NT Pro B Type Natriuretic Pept 1196 pg/ml (0-1800); Sodium 134 mmol/L (136-145); Total Protein 5.9 gm/dl (6.4-8.2); Troponin I 0.064 ng/ml (0-0.045)
[2019-11-14] MEDS: MAGNESIUM SULFATE / D5W 1 GM/100 ML BAG IV SCH ×2 (06:23→07:23)
[2019-11-14] MEDS ORDERED: IOVERSOL 100ml IV PRN (06:25)
--- NOTE | 2019-11-14 06:42 | CT Scan Report ---
CT head/brain wo con CLINICAL HISTORY: 79 years-old Female with ams. Acutely altered mental status TECHNIQUE: Multiple axial CT images of the head were obtained without contrast. A dose lowering tech nique was utilized adhering to the principles of ALARA. CT DOSE: 614.27 mGy.cm COMPARISON: Head CT 08/09/2019 FINDINGS: No acute intracranial hemorrhage, midline shift, intracranial mass, hydrocephalus, territorial ischem ia or abnormal extra-axial collection. Age-related involutional changes. White matter hypodensities s uggestive of chronic microvascular ischemic disease. The calvarium is intact. Prior bilateral lens replacement. The paranasal sinuses, mastoid air cells, and middle ear cavities are clear. IMPRESSION: No acute intracranial abnormality. ACT 112: Negative or not required by law. The above report was generated using voice recognition software. It may contain grammatical, syntax o r spelling errors. Electronically signed by: Rob Up M.D. 11/14/2019 6:41 AM
--- NOTE | 2019-11-14 07:20 | CT Scan Report ---
CT abd pelvis IV con only CLINICAL HISTORY: Abdominal pain COMPARISON STUDY: August 09, 2019 TECHNIQUE: Patient was scanned in a dynamic helical fashion during intravenous administration of 93 c c of Optiray 320 A dose lowering technique was utilized adhering to the principles of ALARA. CT DOSE: 403.53 mGy.cm FINDINGS: Lower chest: There is a large hiatal hernia, with borderline gastric wall thickening.. There are bila teral breast implants. There are dependent airspace opacities, likely atelectatic. Liver: The contrast-enhanced liver is normal in size, contour, and attenuation. There is no intrahepa tic biliary ductal dilatation. The hepatic veins and portal veins are patent. Gallbladder: Unremarkable. Spleen: There is a stable 9 mm hypodense nodule located between the spleen and pancreatic tail. Pancreas: Unremarkable. Adrenal glands: There is minor adrenal gland thickening Kidneys: There are areas of mild renal cortical scarring. There is no hydronephrosis. No solid renal masses are visualized. Bowel: There are no transition zone to indicate bowel obstruction. Postsurgical changes are present w ithin the bowel. There is mild fecal retention. The appendix appears normal. There is no acute divert iculitis. Peritoneum: There is no intraperitoneal free air or abdominal ascites. Vasculature: The abdominal aorta is normal in course and caliber. There are left pelvic varices. Adenopathy: None. Pelvic viscera: The uterus is surgically absent. Skeletal structures: No destructive lesions are visualized. There is a grade 1 spondylolisthesis of L 4 and L5. There is a chronic superior endplate L1 compression deformity. There is a lipoma within the right hip abductor musculature. IMPRESSION: 1. Large hiatal hernia, with borderline gastric wall thickening 2. No evidence of bowel obstruction. No evidence of free air. 3. No evidence of acute appendicitis. No evidence of acute diverticulitis ACT 112: Negative or not required by law. Electronically signed by: Nishant Savage M.D. 11/14/2019 7:19 AM
--- NOTE | 2019-11-14 07:35 | CT Scan Report ---
CT lumbar spine wo con CT DOSE: CLINICAL HISTORY: Leg weakness. Lumbar spine pain. TECHNIQUE: Helical images were acquired in transverse plane. Reformatted sagittal and coronal images were reviewed. A dose lowering technique was utilized adhering to the principles of ALARA. CONTRAST: No contrast was administered COMPARISON STUDY: Abdominal CT scan performed July 2019 FINDINGS: L1-2 level: Is an old superior endplate L1 compression fracture. There is minimal retrolisthesis of L 1 on L2. There is no evidence of significant spinal or foraminal stenosis. No focal herniations are v isualized. L2-3 level: There is a minor circumferential disc bulge. There is minimal spinal canal narrowing. The re is no significant foraminal stenosis L3-4 level: There is a circumferential disc bulge with mild to moderate spinal stenosis. There is no significant foraminal narrowing. There is mild facet joint arthropathy L4-5 level: There is a grade 1 spinal listhesis of L4 and L5. There is moderate spinal canal narrowin g. There is minor bilateral foraminal narrowing. There is facet joint arthropathy. L5-S1 level: There is no evidence of significant disc bulge or focal herniation. There is no evidence of spinal or foraminal stenosis. There is facet joint arthropathy. IMPRESSION: 1. Chronic superior endplate L1 compression deformity 2. Multilevel degenerative changes with multilevel mild to moderate spinal stenosis ACT 112: Negative or not required by law. Electronically signed by: Nishant Savage M.D. 11/14/2019 7:34 AM
--- NOTE | 2019-11-14 07:56 | XRay Report ---
XR chest 1V portable CLINICAL HISTORY: ams dyspnea COMPARISON STUDY: 5 08/16/2019 FINDINGS: Moderate increase in cardiac size. Fixed hiatal hernia considered unchanged. Mild prominence of the pulmonary vasculature compared to the prior study. Central catheter is unchanged in position. No evidence for pneumothorax. IMPRESSION: Developing components of congestive failure ACT 112: Negative or not required by law. The above report was generated using voice recognition software. It may contain grammatical, syntax or spelling errors. Electronically signed by: Alli Hernandes M.D. 11/14/2019 7:55 AM
[2019-11-14] MEDS ORDERED: VANCOMYCIN CONSULT ACTIVE PRN ×2 (08:19)
[2019-11-14] MEDS ORDERED: VANCOMYCIN HCL 1,000 MG in SODIUM CHLORIDE 0.9% 500 ML IV ONE (08:19)
[2019-11-14] MEDS ORDERED: CEFEPIME 2,000 MG/20 ML VIAL IV STA (08:19)
--- NOTE | 2019-11-14 10:47 | History & Physical Report ---
Date of Service November 14, 2019 Assessment & Plan (1) Acute metabolic encephalopathy: (2) Hypomagnesemia: This is an 79yo F with a PMH of ovarian cancer (s/p surgery, undergoing chemo), HTN, DM II and other medical problems listed below who presents after an unresponsive episode with altered mental status and was found to have significant hypomagnesemia. -Mg level of 0.8 in the setting of chemo treatment - will replace. Mentation has improved with IV fluids and electrolyte replacement. Rechecking mag this afternoon -CT head without acute intracranial abnormality. No focal neuro deficits -Pancytopenic. No evidence of infection but is immunocompromized on chemo. Ordered blood cultures and empiric antibiotics for now -Monitor closely. Avoid benzodiazepines during admission- caused worsening confusion during previous admission and have been discontinued (3) Generalized weakness: In setting of hypomagnesemia and chemotherapy. Expect improvement with electrolyte replacement. PT and OT evaluation ordered (4) Ovarian cancer: Status post debulking surgery in 2013. On cycle 6 of chemotherapy with Doxil and carboplatin per Dr. Nicholson of [facility]-onc -Was due for lab work and 2D echo with Dr. Nicholson today. Will order routine echo during admission, especially in setting of slightly elevated troponin (5) Pancytopenia: In the setting of chemo treatment. Hemoglobin 8.9 on admission (was last 11.1 in July). Denies any acute bleeding. FOBT pending (6) Elevated troponin: Troponin mildly elevated at 0.064. No EKG changes or chest pain -Possibly due to elevated BP vs side effect from chemo treatment -Trend troponin, replace Mg, telemetry (7) Hypocalcemia: Corrected calcium within normal range of 8.7 (8) Hypertension: Elevated on arrival of 170/80 - did not take morning medications -Ordered lisinopril and metoprolol to be given now. Continue to monitor closely (9) Diabetes mellitus, type 2: A1c of 6.2 earleir this month. Hold home agents. SSI while in-patient. BSG AC HS (10) DVT prophylaxis: DVT Ppx: SCDS for now. FOBT pending - may add SQ lovenox Code status: FULL per discussion with patient and PCP: Ginger Dispo: Admitted to [facility]. Discharge planning ordered. Patient seen in collaboration with Dr. Sousa. Please see addendum. History of Present Illness Chief Complaint: weakness, AMS Primary Care Provider: Juliano Miles MD This is an 79yo F with a PMH of ovarian cancer (s/p surgery, undergoing chemo), HTN, DM II and other medical problems listed below who presents after an unresponsive episode with altered mental status. HPI is limited from the patient due to her altered mental status so history primarily obtained from at bedside. Patient was admitted in July 2019 for AMS and was found to have electrolyte abnormalities in the setting of chemotherapy. Also found to have possible TIA and was started on baby aspirin. Following admission, patient was having increased anxiety and issues with memory so PCP discontinued lorazepam and tramadol at the beginning of October with markedly improved cognition, per . Was also started on Zoloft at that time. Currently on cycle 6 of chemo treatment with doxil and carboplatin (Avastin on hold). Last received 3.5 weeks ago[address] Nicholson. Has been doing well until last evening when patient told she felt very tired and her legs were weak. He denies any falls or injury. No lower extremity swelling. They went to bed around 9pm last night and she took trazodone to help her sleep, which is not uncommon. Around 2 AM he heard her get up to use bathroom but he must of fallen back asleep because he woke up over an hour later and found slumped down on handicap toilet with her head back and eyes open. Patient did not respond when he called her name or shook her. He denies any seizure-like activity. Prior to EMS arriving, patient stated "Randy help me," which was the first that she had spoken during this episode. He notes she has been having diarrhea but that is her baseline. Currently, patient's mental state has improved but still feels generally weak. Did not take morning medications. Denies fever, chills, headache, lightheadedness, visual changes, sore throat, cough, chest pain, palpitations, shortness of breath, abdominal pain, nausea, vomiting, dysuria or constipation. No melena or hematochezia. No new bruising. Ambulates with cane and occasionally walker at baseline. Allergies Allergy/AdvReac Type Severity Reaction Status Date / Time codeine Allergy Mild Unknown Verified 11/14/19 04:39 Penicillins Allergy Mild UNSURE OF Verified 11/14/19 04:39 REACTION Home Medications Home Medications Medication Instructions Recorded Confirmed Type cyanocobalamin (vitamin B-12) 1,000 mcg PO QAM 04/25/19 11/14/19 History [Vitamin B-12] glimepiride 1 mg PO UD 04/25/19 11/14/19 History multivitamin 1 cap PO QAM 04/25/19 11/14/19 History Lidoc/Child/Antac 15 ml MUCOUS MEMBRANE QID PRN 08/09/19 11/14/19 History acetaminophen [Tylenol 8 Hour] 650 mg PO Q8H PRN 08/09/19 11/14/19 History ibuprofen [Advil] 400 mg PO Q6H PRN 08/09/19 11/14/19 History metoprolol succinate 25 mg PO DAILY 08/09/19 11/14/19 History aspirin 81 mg PO QAM #30 tab 08/19/19 11/14/19 Rx ergocalciferol (vitamin D2) 50,000 unit PO Th@2100 #5 cap 08/19/19 11/14/19 Rx lisinopril 2.5 mg PO DAILY 11/14/19 11/14/19 History sertraline [Zoloft] 50 mg PO HS 11/14/19 11/14/19 History potassium chloride [Klor-Con M20] 20 meq PO BID #10 tab 11/16/19 Rx Past Med/Surg History Medical History Breast cancer (Resolved) Cancer OVARIAN CANCER AND FOUND NODULE IN DUODENUM AREA AND WILL START CHEMO AFTER 2018 Diabetes mellitus, type 2 Facial laceration (Acute) GERD (gastroesophageal reflux disease) Head injury (Acute) Hypertension Surgical History History of colon resection History of tonsillectomy Hx of colonoscopy Hx of eye surgery UNSURE SOMETHING TO DO WITH RETINA Hx of hysterectomy BSO Social History Preferred Language: Citizen Of [place] Communication Ability: Impaired Communication Ability Comment: hard of hearing Resident Programs Assistant Required: No Beliefs That Will Affect Care: None marital status: Current Living Situation: Spouse Other Information That Helps Us Care for You: No Feels Safe at Home: Yes Safety Concerns: Feels Safe At This Time Smoking Status: Never smoker Do You Dip or Chew Tobacco: No ; Second Hand Exposure: No ; Hx Alcohol Use: No Hx Substance Use: No Review of Systems Review of Systems: At least ten systems reviewed and negative except as noted in the HPI. Physical Exam Physical Exam: Please see Dr. Sousa's addendum for physicial examination. Results & Data Results & Data ([facility]) Vital Signs (Past 12 Hours) Vital Signs Temp Pulse Pulse Resp BP BP Pulse Ox 11/14/19 09:23 61 17 176/86 H 97 11/14/19 08:00 53 L 16 197/89 H 96 11/14/19 07:23 52 L 16 174/82 H 97 11/14/19 06:22 55 L 24 181/80 H 95 11/14/19 05:31 52 L 19 157/71 H 95 11/14/19 05:07 95 11/14/19 05:06 55 L 23 170/80 H 96 11/14/19 04:30 53 L 14 131/71 95 11/14/19 04:14 95 11/14/19 04:00 36.8 C 54 L 20 156/78 H 95 Laboratory Results Short CBC 11/14/19 Range/Units 04:55 WBC 3.64 L (4.8-10.8) K/uL Hgb 8.9 L (12.0-16.0) g/dL Hct 26.1 L (37-47) % Plt Count 72 L (130-400) K/uL BMP 11/14/19 04:55 Sodium 134 L Potassium 4.0 Chloride 101 Carbon Dioxide 28 BUN 18 Creatinine 0.77 Glucose 101 H Calcium 8.0 L Cardiac Enzymes 11/14/19 Range/Units 04:55 Troponin I 0.064 H* (0-0.045) ng/ml Liver Function 11/14/19 Range/Units 04:55 Total Bilirubin 0.6 (0.2-1) mg/dl AST 39 H (15-37) U/L ALT 29 (12-78) U/L Alkaline Phosphatase 58 (45-117) U/L Albumin 3.1 L (3.4-5.0) gm/dl Urine 11/14/19 Range/Units 04:08 Urine Color Yellow Urine Appearance Clear (Clear) Urine pH 6.0 (4.5-7.5) Ur Specific [place] 1.012 (1.000-1.030) Urine Protein 3+ H (Negative) Urine Glucose (UA) Negative (Negative) Diagnostic Findings CT head: IMPRESSION: No acute intracranial abnormality. CXR: IMPRESSION: Developing components of congestive failure CT abd/pelvis: IMPRESSION: 1. Large hiatal hernia, with borderline gastric wall thickening 2. No evidence of bowel obstruction. No evidence of free air. 3. No evidence of acute appendicitis. No evidence of acute diverticulitis CT lumbar spine: IMPRESSION: 1. Chronic superior endplate L1 compression deformity 2. Multilevel degenerative changes with multilevel mild to moderate spinal stenosis ECG Rhythm: normal sinus Code Status & VTE Plan VTE Prophylaxis Plan VTE Prophylaxis will be ordered: Yes Supervising Physician Co-Signing Physician Notes Pt seen and examined by me, care coordinated with Lesly Izaguirre PA-C. Pls refer to her note above for further detail. Pt is an 79yo F with a PMH of ovarian cancer (s/p surgery, undergoing chemo), HTN, DM II who presents after an unresponsive episode with altered mental status. HPI is limited from the patient due to her altered mental status so history primarily obtained from at bedside. Currently pt feels better and is able to answer simple questions. She is very [address] of hearing, will ask for sound amplifier - hearing aid. NC/AT, EOMI, PERRL. Lungs are generally clear to auscultation, no wheezing, rhonchi, crackles noted. Heart sounds regular, no murmur noted. Abdomen is soft, nontender and nondistended. Pt moves extremities spontaneously, no sign. LE edema noted. She is alert and oriented, CN II-XII intact, answers questions appropriately and follows simple commands. Appears ill and tired. In ED pt found profoundly hypomagnesemic, she is also pancytopenic (likely from chemo),but will obtain FOBT to further eval. Troponin mildly elevated with no isch. changes reported on EKG. Echo pending. Received 1L of NS in ED and also 2 g of Mag, blood cltx -pending. UA - negative. Will recheck Mg in the afternoon and further replace as needed. Started on empiric antibiotics, will d/c if cltx negat. MD Isreal (1) Ovarian cancer Laterality: unspecified laterality Qualified Code(s): C56.9 - Malignant neoplasm of unspecified ovary
[2019-11-14] MEDS ORDERED: METOPROLOL SUCC 25MG EXT REL TAB PO SCH (11:00)
[2019-11-14] MEDS ORDERED: IBUPROFEN 200 MG TAB PO PRN (14:01)
[2019-11-14] MEDS ORDERED: TRAZODONE HCL 100 MG TAB PO PRN (14:01)
[2019-11-14] MEDS ORDERED: [UNRECOGNIZED DRUG - OTHER] mucous membrane PRN (14:01)
[2019-11-14] MEDS ORDERED: ACETAMINOPHEN 325 MG TAB PO PRN (14:01)
[2019-11-14] MEDS ORDERED: Magic Mouthwash 240mL PO PRN (14:40)
--- NOTE | 2019-11-14 15:10 | Pharmacy Report ---
Pharmacy Abx Initial Consult - Date of Service November 14, 2019 - Pharmacy Dosing Scope Date of Consult: 11/13 Consultation requested by: Lesly Izaguirre Pharmacy is consulted to initiate vancomycin dosing therapy, order appropriate labs and adjust drug dose/frequency. - Subjective The patient is a 79 year old F admitted on 11/14/19 10:42. - Objective Height: 5 ft 2 in Weight: 51 kg Vital Signs (Past 12hrs): Vital Signs Temp Pulse Pulse Resp BP BP Pulse Ox 11/14/19 14:15 56 L 11/14/19 13:10 36.8 C 55 L 18 182/94 H 96 11/14/19 12:37 50 L 17 199/96 H 94 11/14/19 11:00 51 L 17 168/97 H 94 11/14/19 09:23 61 17 176/86 H 97 11/14/19 08:00 53 L 16 197/89 H 96 11/14/19 07:23 52 L 16 174/82 H 97 11/14/19 06:22 55 L 24 181/80 H 95 11/14/19 05:31 52 L 19 157/71 H 95 11/14/19 05:07 95 11/14/19 05:06 55 L 23 170/80 H 96 11/14/19 04:30 53 L 14 131/71 95 11/14/19 04:14 95 11/14/19 04:00 36.8 C 54 L 20 156/78 H 95 Lab Results (24hrs): Laboratory Tests (24 Hours) 11/14/19 11/14/19 11/14/19 05:07 04:55 04:55 WBC 3.64 L Neut # (Auto) 2.76 Creatinine 0.77 Est Cr Clr Drug Dosing Not Reportable Procalcitonin 0.09 Micro Results: 11/14/19 08:05 Aerobic Blood Culture - Pending Blood Anaerobic Blood Culture - Pending 11/14/19 05:07 Aerobic Blood Culture - Pending Blood Anaerobic Blood Culture - Pending - Risk Factors for Resistance * Immunocompromised (chemotherapy) - Assessment & Plan Assessment 79 year old female admitted with altered mental status following an unresponsive episode. PMHx significant for ovarian cancer (s/p surgery, undergoing chemo). Provider would like empiric antibiotics due to patient being immunocompromised and possibility of infection. Blood cultures x 2 are pending. Plan Vancomycin IV * Received loading dose of vancomycin 1000 mg (~20 mg/kg) iv x 1 this AM * Will start maintenance dose of vancomycin 750 mg iv q 18 hrs to achieve estimated trough ~15 mcg/ml * Patient of lower body weight, therefore did not utilize vancomycin dosing nomogram * Estimated kinetics: t1/2~16 hrs, ke~0.04 hr-1, CrCl ~47 ml/min * Ordered empirically x 48hrs - will follow up to determine if trough is necessary to collect Cefepime (not consult) * 2gm iv q 12 hrs - appropriate for CrCl 30-60 Pharmacy will continue to follow and will adjust dose/frequency as necessary. Thank you.
[2019-11-14] MEDS ORDERED: CEFEPIME 2,000 MG in SYRINGE 7.5 ML IV SCH (16:00)
--- NOTE | 2019-11-14 16:02 | Electrocardiogram Report ---
Test Reason : Blood Pressure : / mmHG Vent. Rate : 062 BPM Atrial Rate : 062 BPM P-R Int : 160 ms QRS Dur : 072 ms QT Int : 452 ms P-R-T Axes : 017 063 059 degrees QTc Int : 458 ms Normal sinus rhythm Normal ECG When compared with ECG of 15-AUG-2019 19:09, Questionable change in QRS axis Confirmed by Julio Cesar Bolaños ([id number]) on 11/14/2019 4:01:51 PM Referred By: REFERRED SELF Confirmed By:Julio Cesar Bolaños
[2019-11-14 17:22] LABS: Troponin I 0.064 ng/ml (0-0.045)
[2019-11-14] MEDS ORDERED: HydrALAZINE HCL 20 MG/ML VIAL IV ONE (18:29)
[2019-11-14] MEDS ORDERED: MAGNESIUM SULFATE / D5W 1 GM/100 ML BAG IV ONE (19:00)
[2019-11-14] MEDS: metroNIDAZOLE 500 MG/100 ML BAG IV SCH (19:20)
[2019-11-14] MEDS: SERTRALINE HCL 50 MG TABLET PO SCH (20:31)
[2019-11-14] MEDS: CEFEPIME 2,000 MG in SYRINGE 7.5 ML IV SCH (20:39)
--- NOTE | 2019-11-14 20:50 | XRay Report ---
XR chest 1V portable HISTORY: poss. aspiration COMPARISON: Abdomen and pelvis CT 11/14/2019. FINDINGS: No pneumothorax. No pleural effusions. There is a large hiatus hernia, unchanged. The heart is normal in size. Left jugular Port-A-Cath terminates at the SVC/brachiocephalic junction. There ar e surgical clips within the left axilla. IMPRESSION: No acute process. Stable large hiatus hernia. ACT 112: Negative or not required by law. Electronically signed by: Mateusz Parsons M.D. 11/14/2019 8:49 PM
[2019-11-14] MEDS: OLANZapine 10 MG/2.1 ML SDV IM PRN (21:17)
[2019-11-14] MEDS ORDERED: HALOPERIDOL LACTATE 5 MG/ML 1 ML VIAL IM STA (22:15)
[2019-11-14] MEDS ORDERED: HALOPERIDOL LACTATE 5 MG/ML 1 ML VIAL ONE (22:18)
[2019-11-15] MEDS: metroNIDAZOLE 500 MG/100 ML BAG IV SCH ×3 (01:55→18:15)
[2019-11-15] MEDS: VANCOMYCIN HCL 750 MG in SODIUM CHLORIDE 0.9% 250 ML IV SCH ×2 (03:17→23:34)
[2019-11-15] MEDS ORDERED: HALOPERIDOL LACTATE 5 MG/ML 1 ML VIAL IM STA (05:51)
[2019-11-15] MEDS ORDERED: HALOPERIDOL LACTATE 5 MG/ML 1 ML VIAL ONE (05:58)
[2019-11-15] MEDS: OLANZapine 10 MG/2.1 ML SDV IM PRN ×3 (06:22→19:57)
--- NOTE | 2019-11-15 08:58 | XRay Report ---
XR chest 1V portable CLINICAL HISTORY: MD ordered dyspnea COMPARISON STUDY: 11/14/2019 FINDINGS: Mild stable cardiomegaly. Slight increase in density left lung base. Right lung remains alex ar. The pulmonary apices are clear. IMPRESSION: Developing parenchymal infiltrate left lung base. ACT 112: Negative or not required by law. The above report was generated using voice recognition software. It may contain grammatical, syntax or spelling errors. Electronically signed by: Alli Hernandes M.D. 11/15/2019 8:57 AM
[2019-11-15] MEDS ORDERED: ATORVASTATIN 20 MG TAB PO SCH (09:00)
[2019-11-15] MEDS: CEFEPIME 2,000 MG in SYRINGE 7.5 ML IV SCH ×2 (09:35→23:34)
[2019-11-15] MEDS: ATORVASTATIN 20 MG TAB PO SCH (09:53)
[2019-11-15] MEDS: METOPROLOL SUCC 25MG EXT REL TAB PO SCH (09:53)
[2019-11-15] MEDS: ASPIRIN 81 MG ECTAB PO SCH (09:53)
[2019-11-15] MEDS: MULTIVITAMIN TAB PO SCH (09:53)
[2019-11-15] MEDS: CYANOCOBALAMIN 500 MCG TABLET (VITAMIN B-12) PO SCH (09:54)
[2019-11-15 10:05] LABS: Hematocrit (blood only) 29.6 % (37-47); Hemoglobin 9.8 g/dL (12.0-16.0); Mean Corpuscular Hemoglobin 29.8 pg (25-34); Mean Corpuscular Hgb Conc 33.1 g/dL (32-36); RDW Coefficient of Variation 15.2 % (11.5-14.5); Red Blood Count 3.29 M/uL (4.2-5.4); White Blood Count 3.02 K/uL (4.8-10.8)
[2019-11-15 10:34] LABS: BUN Creatinine Ratio 11.6 (10-20); Calcium 8.6 mg/dl (8.5-10.1); Creatinine Clr Calc Pharmacy 42.2 ml/min; Est GFR (African American) 76.1; Est GFR (Non-African American) 65.6; Magnesium 1.6 mg/dl (1.8-2.4); Potassium 5.1 mmol/L (3.5-5.1)
[2019-11-15 10:46] LABS: Platelet Count 54 K/uL (130-400)
[2019-11-15] MEDS ORDERED: ZIPRASIDONE 20 MG/ML SDV IM PRN (11:14)
--- NOTE | 2019-11-15 11:22 | Hospitalist Progress Note ---
Date of Service November 15, 2019 Assessment & Plan (1) Acute metabolic encephalopathy: This is an 79yo F with a PMH of ovarian cancer (s/p surgery, undergoing chemo), HTN, DM II and other medical problems listed below who presents after an unresponsive episode with altered mental status. HPI is limited from the patient due to her altered mental status so history primarily obtained from at bedside. Patient was admitted in July 2019 for AMS and was found to have electrolyte abnormalities in the setting of chemotherapy. Also found to have possible TIA and was started on baby aspirin. Following admission, patient was having increased anxiety and issues with memory so PCP discontinued lorazepam and tramadol at the beginning of October with markedly improved cognition, per . Was also started on Zoloft at that time. Currently on cycle 6 of chemo treatment with doxil and carboplatin (Avastin on hold). Last received 3.5 weeks ago[address] Nicholson. Has been doing well until last evening when patient told she felt very tired and her legs were weak. He denies any falls or injury. No lower extremity swelling. They went to bed around 9pm last night and she took trazodone to help her sleep, which is not uncommon. Around 2 AM he heard her get up to use bathroom but he must of fallen back asleep because he woke up over an hour later and found slumped down on handicap toilet with her head back and eyes open. Patient did not respond when he called her name or shook her. He denies any seizure-like activity. Prior to EMS arriving, patient stated "Randy help me," which was the first that she had spoken during this episode. He notes she has been having diarrhea but that is her baseline. Was very combative last night, Family req Pall eval (2) Hypomagnesemia: This is an 79yo F with a PMH of ovarian cancer (s/p surgery, undergoing chemo), HTN, DM II and other medical problems listed below who presents after an unresponsive episode with altered mental status and was found to have significant hypomagnesemia. -Mg level still low, 2 g ordered -CT head without acute intracranial abnormality. No focal neuro deficits -Pancytopenic. No evidence of infection but is immunocompromised on chemo. Ordered blood cultures and empiric antibiotics for now -Monitor closely. Avoid benzodiazepines during admission- caused worsening confusion during previous admission and have been discontinued (3) Generalized weakness: In setting of hypomagnesemia and chemotherapy. Expect improvement with electrolyte replacement. PT and OT evaluation ordered (4) Ovarian cancer: Status post debulking surgery in 2013. On cycle 6 of chemotherapy with Doxil and carboplatin per Dr. Nicholson of medical [facility] -Was due for lab work and 2D echo with Dr. Nicholson. Will order routine echo during admission, especially in setting of slightly elevated troponin (5) Pancytopenia: In the setting of chemo treatment. Hemoglobin 8.9 on admission (was last 11.1 in July). Denies any acute bleeding. FOBT pending (6) Elevated troponin: Troponin mildly elevated at 0.064. No EKG changes or chest pain -Possibly due to elevated BP vs side effect from chemo treatment -Trend troponin, replace Mg, telemetry (7) Hypocalcemia: Corrected calcium within normal range of 8.7 (8) Hypertension: Elevated on arrival of 170/80 - did not take morning medications -Ordered lisinopril and metoprolol, still high (9) Diabetes mellitus, type 2: A1c of 6.2 earleir this month. Hold home agents. SSI while in-patient. BSG AC HS (10) DVT prophylaxis: DVT Ppx: SCDS for now. FOBT pending - add SQ Heparin if Hb stable and plts ok Code status: FULL per discussion with patient and PCP: Ginger Dispo: Admitted to [facility]. Discharge planning ordered. Family requests Pall Care eval Labs Checked ROS-Offered no history, Sedated from being Combative Physical Exam Gen-Sleepy, NAD, Afebrile Head-NCAT Neck-Supple, No JVD, No Thyromegaly, No Masses, No LAD, No Bruits Lungs-Clear to Auscultation Bilaterally, No Rales, No Rhonchi, No Wheezing, No Crepitus Chest-No S4, +S1, +S2, No S3, No Murmurs, No Rubs, No Gallops, No Ectopy Abdomen-Soft, Bowel Sounds Present, Non Tender, Non Distended, No Hepatomegaly, No Splenomegaly, No Palpable Masses, No Rebound, No Rigidity, No Guarding Musculoskeletal-Full Range of Motion Bilaterally, No CVAT Extremities-No Cyanosis, No Clubbing, No Edema Nuero-Cranial Nerves II-XII grossly intact, Motor WNL, DTRs WNL, Strength WNL, Non Focal Psych-Sleepy Admission and Anticipated Discharge Date Admission Date: November 14, 2019 Results & Data Results & Data ([facility]) Vital Signs (Past 12 Hours) Vital Signs Pulse BP 11/15/19 09:50 176/73 H 11/15/19 08:00 65 11/15/19 01:29 63 (1) Ovarian cancer Laterality: unspecified laterality Qualified Code(s): C56.9 - Malignant neoplasm of unspecified ovary
[2019-11-15] MEDS: MAGNESIUM SULFATE / D5W 1 GM/100 ML BAG IV SCH ×2 (13:09→14:41)
[2019-11-15] MEDS: SERTRALINE HCL 50 MG TABLET PO SCH (23:35)
[2019-11-16] MEDS: metroNIDAZOLE 500 MG/100 ML BAG IV SCH ×2 (02:00→09:42)
[2019-11-16 07:37] LABS: Mean Corpuscular Hgb Conc 33.8 g/dL (32-36)
[2019-11-16 08:03] LABS: Hematocrit (blood only) 28.7 % (37-47); Hemoglobin 9.7 g/dL (12.0-16.0); Mean Corpuscular Hemoglobin 29.8 pg (25-34); RDW Coefficient of Variation 15.2 % (11.5-14.5); RDW Standard Deviation 48.9 fL (36.4-46.3); Red Blood Count 3.26 M/uL (4.2-5.4); White Blood Count 2.09 K/uL (4.8-10.8)
[2019-11-16 08:11] LABS: BUN Creatinine Ratio 17.4 (10-20); Creatinine Clr Calc Pharmacy 52.2 ml/min; Est GFR (African American) 95.8; Est GFR (Non-African American) 82.6; Magnesium 1.8 mg/dl (1.8-2.4); Platelet Count 45 K/uL (130-400); Platelet Estimate Decreased (Normal); Potassium 3.3 mmol/L (3.5-5.1)
[2019-11-16] MEDS: MULTIVITAMIN TAB PO SCH (09:34)
[2019-11-16] MEDS: ASPIRIN 81 MG ECTAB PO SCH (09:34)
[2019-11-16] MEDS: METOPROLOL SUCC 25MG EXT REL TAB PO SCH ×2 (09:34→12:39)
[2019-11-16] MEDS: CYANOCOBALAMIN 500 MCG TABLET (VITAMIN B-12) PO SCH (09:36)
[2019-11-16] MEDS: ATORVASTATIN 20 MG TAB PO SCH (09:36)
[2019-11-16] MEDS: CEFEPIME 2,000 MG in SYRINGE 7.5 ML IV SCH (09:42)
--- NOTE | 2019-11-16 09:42 | Palliative Care Consultation ---
Date of Consultation November 16, 2019 Assessment & Plan (1) Goals of care, counseling/discussion: -79 year old female patient with PMH of ovarian cancer (s/p surgery, undergoing chemo), HTN, DM II and other medical problems listed below who presents after an unresponsive episode with altered mental status. Spoke on phone with patient's , Augustine, at length. This is patient's sixth bout of cancer. She was previously on a clinical trial until April 2019, and was doing quite well up until that point. At that time,, her CA 125 went up "further than they wanted," so they stopped the clinical trial. She is now undergoing chemotherapy under the care of Dr. Trav Nicholson through [facility]. Since May, patient has been having memory issues, some paranoia type behavior. In July, patient called her and said she couldn't talk correctly and was feeling strange. Essentially patient had a TIA, started ASA, and did return to about 75% of her baseline function per Augustine. In the last week or two, patient was getting very weak, but patient knew and would state that her legs hurt and were tired. This is very out of patient's norm, as she was still fairly independent and active, enjoyed cooking for the family, etc. On Wednesday, patient told her she thought she needed PT/OT to come into the home again. At 9pm that night, she felt tired and went to bed, could barely walk at that time. Augustine gave patient a lorazepam to help her sleep, as she has taken for quite some time. Around 2am, Moo heard a light "banging" noise from the bathroom. Augustine found patient slumped over on toilet, had a bout of diarrhea, completely confused. 911 called. In ED, found to be hypomagnesemic. CT head negative. MRI brain in July negative. Palliative care is now consulted to discuss goals of care at the family's request. -Patient to be seen by palliative MD this afternoon. -Augustine is concerned that this chemotherapy isn't working and could be making things worse. However, he was encouraged that her CA 125 dropped from the 90s down to 20. After much discussion, he states that his plan is to bring deric home with [facility] and see how she does. In the meantime, he is going to contact Dr. Nicholson and try to arrange a time that they can meet and discuss whether or not further chemo is going to be beneficial. -My recommendation to patient's is to go home with home health, see how patient does, make decisions about goals, and transition to hospice care when appropriate. He agrees that this is the plan. -district manager has already made referral to [facility]. -ANy further recommendations below from physician. History of Present Illness Attending Physician: Sriram Lares, DO History of Present Illness This 79 year old female patient with PMH of ovarian cancer (s/p surgery, undergoing chemo), HTN, DM II and other medical problems listed below who presents after an unresponsive episode with altered mental status. Spoke on phone with patient's , Augustine, at length. This is patient's sixth bout of cancer. She was previously on a clinical trial until April 2019, and was doing quite well up until that point. At that time,, her CA 125 went up "further than they wanted," so they stopped the clinical trial. She is now undergoing chemotherapy under the care of Dr. Trav Nicholson through [facility]. Since May, patient has been having memory issues, some paranoia type behavior. In July, patient called her and said she couldn't talk correctly and was feeling strange. Essentially patient had a TIA, started ASA, and did return to about 75% of her baseline function per Augustine. In the last week or two, patient was getting very weak, but patient knew and would state that her legs hurt and were tired. This is very out of patient's norm, as she was still fairly independent and active, enjoyed cooking for the family, etc. On Wednesday, patient told her she thought she needed PT/OT to come into the home again. At 9pm that night, she felt tired and went to bed, could barely walk at that time. Augustine gave patient a lorazepam to help her sleep, as she has taken for quite some time. Around 2am, Moo heard a light "banging" noise from the bathroom. Augustine found patient slumped over on toilet, had a bout of diarrhea, completely confused. 911 called. In ED, found to be hypomagnesemic. CT head negative. MRI brain in July negative. Palliative care is now consulted to discuss goals of care at the family's request. Thank you kindly for this consult. Palliative care team will follow as needed. Allergies Allergy/AdvReac Type Severity Reaction Status Date / Time codeine Allergy Mild Unknown Verified 11/14/19 04:39 Penicillins Allergy Mild UNSURE OF Verified 11/14/19 04:39 REACTION Home Medications Home Medications Medication Instructions Recorded Confirmed Type cyanocobalamin (vitamin B-12) 1,000 mcg PO QAM 04/25/19 11/14/19 History [Vitamin B-12] glimepiride 1 mg PO UD 04/25/19 11/14/19 History metformin 500 mg PO BID 04/25/19 11/14/19 History multivitamin 1 cap PO QAM 04/25/19 11/14/19 History Lidoc/Child/Antac 15 ml MUCOUS MEMBRANE QID PRN 08/09/19 11/14/19 History Lidocaine Viscous 1 applic TOPICAL UD 08/09/19 11/14/19 History acetaminophen [Tylenol 8 Hour] 650 mg PO Q8H PRN 08/09/19 11/14/19 History ibuprofen [Advil] 400 mg PO Q6H PRN 08/09/19 11/14/19 History metoprolol succinate 25 mg PO DAILY 08/09/19 11/14/19 History trazodone 100 mg PO HS PRN 08/09/19 11/14/19 History aspirin 81 mg PO QAM #30 tab 08/19/19 11/14/19 Rx atorvastatin 20 mg PO DAILY #30 tab 08/19/19 11/14/19 Rx ergocalciferol (vitamin D2) 50,000 unit PO Th@2100 #5 cap 08/19/19 11/14/19 Rx lisinopril 2.5 mg PO DAILY 11/14/19 11/14/19 History sertraline [Zoloft] 50 mg PO HS 11/14/19 11/14/19 History Patient History Medical History Breast cancer (Resolved) Cancer OVARIAN CANCER AND FOUND NODULE IN DUODENUM AREA AND WILL START CHEMO AFTER 2018 Diabetes mellitus, type 2 Facial laceration (Acute) GERD (gastroesophageal reflux disease) Head injury (Acute) Hypertension Surgical History History of colon resection History of tonsillectomy Hx of colonoscopy Hx of eye surgery UNSURE SOMETHING TO DO WITH RETINA Hx of hysterectomy BSO Social History Preferred Language: Kyrgyz Communication Ability: Impaired Communication Ability Comment: hard of hearing [employer]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 Required: No Beliefs That Will Affect Care: None marital status: Current Living Situation: Spouse Other Information That Helps Us Care for You: No Feels Safe at Home: Yes Safety Concerns: Feels Safe At This Time Smoking Status: Never smoker Do You Dip or Chew Tobacco: No ; Second Hand Ex posure: No ; Hx Alcohol Use: No Hx Substance Use: No Results & Data Vital Signs (Past 12 Hours) Vital Signs Temp Pulse Resp BP Pulse Ox 11/16/19 07:20 36.8 C 81 18 176/92 H 95 Coding Level of Care Code 72093 Inpt Consult Level 3 Diagnoses Goals of care, counseling/discussion Z71.89 Time Spent (min) 70 Time Spent Midlevel A total of 70 minutes spent by this DIGITAL STRATEGY DIRECTOR in reviewing chart, speaking with physicians and IDT, and speaking with patient's family regarding condition, goals of care and home health vs. hospice.
--- NOTE | 2019-11-16 10:10 | Hospitalist Progress Note ---
Date of Service November 16, 2019 Assessment & Plan (1) Acute metabolic encephalopathy: This is an 79yo F with a PMH of ovarian cancer (s/p surgery, undergoing chemo), HTN, DM II and other medical problems listed below who presents after an unresponsive episode with altered mental status. HPI is limited from the patient due to her altered mental status so history primarily obtained from at bedside. Patient was admitted in July 2019 for AMS and was found to have electrolyte abnormalities in the setting of chemotherapy. Also found to have possible TIA and was started on baby aspirin. Following admission, patient was having increased anxiety and issues with memory so PCP discontinued lorazepam and tramadol at the beginning of October with markedly improved cognition, per . Was also started on Zoloft at that time. Currently on cycle 6 of chemo treatment with doxil and carboplatin (Avastin on hold). Last received 3.5 weeks ago[address] with Dr[address] Nicholson. Has been doing well until last evening when patient told she felt very tired and her legs were weak. He denies any falls or injury. No lower extremity swelling. They went to bed around 9pm last night and she took trazodone to help her sleep, which is not uncommon. Around 2 AM he heard her get up to use bathroom but he must of fallen back asleep because he woke up over an hour later and found slumped down on handicap toilet with her head back and eyes open. Patient did not respond when he called her name or shook her. He denies any seizure-like activity. Prior to EMS arriving, patient stated "Randy help me," which was the first that she had spoken during this episode. He notes she has been having diarrhea but that is her baseline. Combative this morning, Hit me twice as I was Auscultating her chest, Pall eval today, thinks she'll do better at home, RN states that she tried to bite roberta daughter this am (2) Hypomagnesemia: This is an 79yo F with a PMH of ovarian cancer (s/p surgery, undergoing chemo), HTN, DM II and other medical problems listed below who presents after an unresponsive episode with altered mental status and was found to have significant hypomagnesemia. -Mg level 1.8 today -CT head without acute intracranial abnormality. No focal neuro deficits -Pancytopenic. No evidence of infection but is immunocompromised on chemo. Ordered blood cultures and empiric antibiotics for now -Monitor closely. Avoid benzodiazepines during admission- caused worsening confusion during previous admission and have been discontinued (3) Generalized weakness: In setting of hypomagnesemia and chemotherapy. (4) Ovarian cancer: Status post debulking surgery in 2013. On cycle 6 of chemotherapy with Doxil and carboplatin per Dr. Nicholson of [facility] -Was due for lab work and 2D echo with Dr. Nicholson. (5) Pancytopenia: In the setting of chemo treatment. Hemoglobin 8.9 on admission (was last 11.1 in July). Denies any acute bleeding. (6) Elevated troponin: Troponin mildly elevated at 0.064. No EKG changes or chest pain -Possibly due to elevated BP vs side effect from chemo treatment -Trend troponin, replace Mg (7) Hypocalcemia: Corrected calcium within normal range of 8.7 (8) Hypertension: Elevated on arrival of 170/80 - did not take morning medications -Ordered lisinopril and metoprolol, still high (9) Diabetes mellitus, type 2: A1c of 6.2 earleir this month. Hold home agents. SSI while in-patient. BSG AC HS (10) DVT prophylaxis: DVT Ppx: SCDS for now. FOBT pending - add SQ Heparin if Hb stable and plts ok Code status: FULL per discussion with patient and PCP: Ginger Dispo: Discharge planning [facility] referral and possible hospice transition. Labs Checked-K ordered ROS-Offered no history, Combative, Resume diet Physical Exam Gen-NAD, Afebrile, Combative Head-NCAT Neck-Supple, No JVD, No Thyromegaly, No Masses, No LAD, No Bruits Lungs-Clear to Auscultation Bilaterally, No Rales, No Rhonchi, No Wheezing, No Crepitus Chest-No S4, +S1, +S2, No S3, No Murmurs, No Rubs, No Gallops, No Ectopy Abdomen-Soft, Bowel Sounds Present, Non Tender, Non Distended, No Hepatomegaly, No Splenomegaly, No Palpable Masses, No Rebound, No Rigidity, No Guarding Musculoskeletal-Full Range of Motion Bilaterally, No CVAT Extremities-No Cyanosis, No Clubbing, No Edema Nuero-Cranial Nerves II-XII grossly intact, Motor WNL, DTRs WNL, Strength WNL, Non Focal Psych-Sleepy Admission and Anticipated Discharge Date Admission Date: November 14, 2019 Results & Data Results & [facility] ([facility]) Vital Signs (Past 12 Hours) Vital Signs Temp Pulse Resp BP Pulse Ox 11/16/19 07:20 36.8 C 81 18 176/92 H 95 (1) Ovarian cancer Laterality: unspecified laterality Qualified Code(s): C56.9 - Malignant neoplasm of unspecified ovary
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
[2019-11-16] MEDS ORDERED: POTASSIUM CHLORIDE 20 MEQ TABCR PO SCH (10:30)
[2019-11-16] MEDS ORDERED: VANCOMYCIN TROUGH ONE (13:30)
[2019-11-16] MEDS ORDERED: ERGOCALCIFEROL 50,000 UNITS CAP PO SCH (20:00)
== END 2019-11-16 13:18 | disposition home health service (06) | DRG 70 ==
LOC: ED 03:53 → SUATTDRO 10:42 → 2N 10:42

== ENCOUNTER 2020-02-11 11:33 | Inpatient (IN) ==
[2020-02-11] MEDS ORDERED: SODIUM CHLORIDE 0.9% 1000ML 1,000 ML IV SCH (11:45)
[2020-02-11 12:08] LABS: Basophils # (auto) 0.01 K/uL (0-0.2); Basophils % (auto) 0.2 %; Eosinophils # (auto) 0.18 K/uL (0-0.5); Eosinophils % (auto) 2.8 %; Hematocrit (blood only) 37.6 % (37-47); Hemoglobin 12.5 g/dL (12.0-16.0); Immature Granulocytes # (auto) 0.01 K/uL (0.00-0.02); Immature Granulocytes % (auto) 0.2 %; Lymphocytes % (auto) 18.5 %; Mean Corpuscular Hemoglobin 29.3 pg (25-34); Mean Corpuscular Hgb Conc 33.2 g/dL (32-36); Mean Corpuscular Volume 88.3 fL (80-100); Mean Platelet Volume 9.5 fL (7.4-10.4); Monocytes # (auto) 0.71 K/uL (0.11-0.59); Monocytes % (auto) 10.9 %; Neutrophils # (auto) 4.39 K/uL (1.4-6.5); Neutrophils % (auto) 67.4 %; Platelet Count 245 K/uL (130-400); RDW Coefficient of Variation 13.8 % (11.5-14.5); RDW Standard Deviation 44.5 fL (36.4-46.3); Red Blood Count 4.26 M/uL (4.2-5.4)
[2020-02-11] MEDS ORDERED: OPTIRAY 320 125ml IV ONE (12:15)
[2020-02-11 12:17] LABS: iSTAT Creatinine 0.7 mg/dl (0.6-1.3); iSTAT Hemoglobin 13.3 g/dl (12.0-16.0); iSTAT Ionized Calcium 1.26 mmol/l (1.12-1.32); iSTAT Potassium 4.1 mmol/L (3.3-5.0)
--- NOTE | 2020-02-11 12:22 | CT Scan Report ---
CT angio head wo/w CLINICAL HISTORY: stroke, right weakness COMPARISON STUDY: MRI of the brain August 16, 2019. Head CT November 14, 2019. TECHNIQUE: Unenhanced and arterial phase imaging of the head was performed. Intravenous injection of Optiray 320 IV was uneventful. Sagittal and coronal reconstructed reviewed as well as maximal intensi ty projections on an independent 3-D workstation. Automated exposure control was utilized for the diana dy. A dose lowering technique was utilized adhering to the principles of ALARA. FINDINGS: No acute intracranial hemorrhage, midline shift or mass effect is present. Ventricular syst em is stable. Basilar cisterns are patent. There are no extra axial collections. The bilateral M1, M2 , A1 and A2 segments are patent. No central vessel occlusion is noted. The posterior circulation is i ntact. There is mild plaque within the intracranial vessels. No significant calvarial abnormalities are present. IMPRESSION: 1. No acute intracranial findings. 2. Unremarkable CTA of the head. No central vessel occlusion. ACT 112: Negative or not required by law. Electronically signed by: Tye Elliott M.D. 02/11/2020 12:21 PM
[2020-02-11 12:25] LABS: Alanine Aminotransferase 16 U/L (12-78); Albumin Level 3.5 gm/dl (3.4-5.0); Aspartate Aminotransferase 21 U/L (15-37); BUN Creatinine Ratio 20.4 (10-20); Blood Urea Nitrogen 15 mg/dl (7-18); Calcium 9.2 mg/dl (8.5-10.1); Carbon Dioxide 28 mmol/L (21-32); Chloride 105 mmol/L (98-107); Creatinine Clr Calc Pharmacy 44.1 ml/min; Est GFR (African American) 90.2; Est GFR (Non-African American) 77.8; Glucose 101 mg/dl (70-99); Potassium 4.2 mmol/L (3.5-5.1); Sodium 138 mmol/L (136-145)
--- NOTE | 2020-02-11 12:26 | CT Scan Report ---
CT ANGIOGRAPHY OF THE NECK WITH CONTRAST CLINICAL HISTORY: stroke, right weakness COMPARISON STUDY: Carotid ultrasound August 16, 2019. Technique: CT angiography of the carotid and vertebral arteries was obtained using [employer] 320 IV and 3D reconstruction on an independent workstation. NASCET criteria was utilized. Automated exposure c ontrol was utilized for the study. A dose lowering technique was utilized adhering to the principles of ALARA. Findings: There is mild subpleural reticulation within the lung apices. There is no cervical spine fr acture. Left internal jugular [id number] is in place. There is no cervical lymphadenopathy. The bi lateral common carotid, cervical internal carotid and vertebral arteries are patent. There is minimal plaque within the left carotid bifurcation. There is no dissection within the major vessels within t he neck. No vessel occlusion is noted. IMPRESSION: Unremarkable CTA of the neck. No dissection. No stenosis. ACT 112: Negative or not required by law. Electronically signed by: Tye Elliott M.D. 02/11/2020 12:24 PM
--- NOTE | 2020-02-11 12:29 | XRay Report ---
XR chest 1V portable CLINICAL HISTORY: weakness COMPARISON STUDY: Chest radiograph November 15, 2019. Chest CT August 09, 2019. FINDINGS: Left internal jugular Auhbhj-f-Numb is in place. A hiatal hernia is noted. Cardiac mediasti nal silhouette is stable. There is no pneumothorax or pleural effusion. There is mild interstitial th ickening. IMPRESSION: Slight increase in nonspecific interstitial thickening. Otherwise, unchanged appearance of the chest. ACT 112: Negative or not required by law. Electronically signed by: Tye Elliott M.D. 02/11/2020 12:28 PM
[2020-02-11 12:33] LABS: Alkaline Phosphatase 68 U/L (45-117); Bilirubin,Total 0.4 mg/dl (0.2-1); Globulin 3.5 gm/dl (2.5-4.0); Troponin I < 0.015 ng/ml (0-0.045)
[2020-02-11] MEDS ORDERED: ASPIRIN CHEW 324 MG PO STA (12:39)
[2020-02-11] MEDS ORDERED: CLOPIDOGREL BISULFATE 300 MG TAB PO STA (12:39)
[2020-02-11] MEDS ORDERED: ASPIRIN 300 MG SUPP PR ONE (13:19)
--- NOTE | 2020-02-11 13:26 | Emergency Department Note ---
Impression & Plan Acute CVA (cerebrovascular accident) ED Provider Note INFORMANT: Patient daughter ED PROVIDER(S): Manuel Meza MD CHIEF COMPLAINT: Weakness PLAN: Disposition: Admit Condition: Good MEDICAL DECISION MAKING: Patient presented with findings concerning for CVA with the right arm and leg weakness coupled with the slurred speech. She also had left facial droop that was mild. She was made a stroke alert. She was taken emergently to CT for CT angiography of the head and neck. This was negative for any significant abn ormalities. The patient had unremarkable CBC and chemistry panel. I did consult with Dr. Barragan of [employer]-stroke. Given the physical findings, time of onset, and imaging results the patient is not a TPA candidate. She likely suffering from a small vessel CVA. Dr. Barragan did recommend aspirin and Plavix. She also recommended IV hydration. This was already underway. Admission for further work-up was also discussed. Consultation was made with the [facility] service. The patient will be admitted for further management. She was given the aspirin VT as she has a facial droop and needs a speech evaluation for swallowing study. Plavix is on hold until speech evaluates the patient's swallowing function. Triage Nursing notes reviewed and agree them. Additional history obtained from patient's daughter Vital Signs: reviewed and remarkable for hypertension Differential diagnosis: CVA, TIA, infection, dehydration, metabolic abnormality, hypo/hyperglycemia, electrolyte disturbance, anemia, hypoxia, cardiac sources, intracerebral event, toxicologic, neurologic, as well as other pathologies. Diagnostics interpreted by me: ECG: Rate:70 Rhythm:Normal sinus [place]:Normal QRS:Normal ST segements:No elevation or depression Other:No PACs or PVCs Cardiac Monitoring: Cardiac monitoring ordered by me: The patient was placed on continuous cardiac monitoring and observed. It revealed a normal sinus rhythm at 75 beats per minute without ectopy or evidence of dysrhythmia. Imaging studies: Head CT: A noncontrast CT scan of the head was performed and was negative for tumor, fracture, intracranial hemorrhage, or other acute pathology. CT angiogram of the head and neck were performed and negative for acute process. Chest x-ray. Findings: A chest x-ray was performed and revealed no pneumothorax, effusion, infiltrate, pulmonary edema, free air under the diaphragm, or wide mediastinum. Impression: No acute disease. Consultation(s): [facility], [facility], Marina Julio PA-C and Dr. Lares HPI: The patient is a 79 year old female who presents to the Emergency Room with complaints of right arm and leg weakness. This started last night at 1700 and is persisting. The patient also notes the following associated symptoms, slurred speech and mild left facial droop. The patient has tried Ativan unsuccessfully for relieving factors. Current pain is rated as 0/10. Pt denies LOC, headache, fevers, chills, diaphoresis, visual changes, neck pain, chest pain, breathing difficulties, nausea, vomiting, abdominal pain, back pain, melena, hematochezia, urinary symptoms, numbness, lymphadenopathy, rash, or other complaints. ROS: See above HPI for pertinent positives & negatives. A total of 10 systems reviewed and were otherwise negative. PAST MEDICAL HISTORY:See Below hypomagnesemia, hypertension, diabetes, breast cancer PAST SURGICAL HISTORY:See Below FAMILY HISTORY:See Below SOCIAL HISTORY:See Below lives with family, HOME MEDICATIONS:See Below ALLERGIES:See Below VITALS:See Below PHYSICAL EXAMINATION: GENERAL: Awake, alert, mildly anxious-appearing, in no distress HENT: Normocephalic, atraumatic. Oropharynx unremarkable. EYES: Normal conjunctiva. Sclera non-icteric. PERRLA. EOMI. NECK: Inspection normal. Non-tender. Supple. No nuchal rigidity. FROM. No masses. RESPIRATORY: Clear to auscultation. No wheezes. No rales. Normal respiratory effort. CARDIAC: Normal rate. Normal rhythm. No murmurs. No rubs. Extremities warm and well perfused. Pulses equal. No JVD. GI: Soft, non-distended. No tenderness to palpation. No rebound or guarding. No masses. RECTAL: Deferred. MUSCULOSKELETAL: Atraumatic. Chest examination reveals no tenderness. The back is symmetrical on inspection without obvious abnormality. There is no CVA tenderness to palpation. No joint edema. LOWER EXTREMITIES: Calves are equal size bilaterally and non-tender. No edema. No discoloration. NEURO: Normal sensorium. No sensory deficits noted. Left facial droop noted. Drift in the right arm and right leg with decreased motor strength. There is slurred speech present. SKIN: No rash or jaundice noted. ED COURSE: Critical Care: None Manuel Meza MD Past Med/Surg History Medical History (Updated 02/11/20 @ 15:09 by Chandrika Julio PA-C) Anxiety Breast cancer Cancer OVARIAN CANCER AND FOUND NODULE IN DUODENUM AREA AND WILL START CHEMO AFTER 2018 Diabetes mellitus, type 2 GERD (gastroesophageal reflux disease) Hypertension Surgical History History of colon resection History of tonsillectomy Hx of colonoscopy Hx of eye surgery UNSURE SOMETHING TO DO WITH RETINA Hx of hysterectomy BSO Family History (Updated 02/11/20 @ 14:59 by Chandrika Julio PA-C) Mother Myocardial infarction Social History Smoking Status: Former smoker Second Hand Exposure: No; Hx Alcohol Use: No Hx Substance Use: No Preferred Language: [place] Citizen Communication Ability: Impaired Police Worker Required: No Beliefs That Will Affect Care: None marital status: Current Living Situation: Spouse Feels Safe at Home: Yes Allergies Allergies Allergy/AdvReac Type Severity Reaction Status Date / Time codeine Allergy Mild Unknown Verified 02/11/20 13:55 Penicillins Allergy Mild UNSURE OF Verified 02/11/20 13:55 REACTION Home Meds Home Medications Medication Instructions Recorded Confirmed cyanocobalamin (vitamin B-12) 1,000 mcg PO QAM 04/25/19 02/11/20 [Vitamin B-12] glimepiride 1 mg PO UD 04/25/19 02/11/20 multivitamin 1 cap PO QAM 04/25/19 02/11/20 acetaminophen [Tylenol 8 Hour] 650 mg PO Q8H PRN 08/09/19 02/11/20 metoprolol succinate 25 mg PO DAILY 08/09/19 02/11/20 lisinopril 2.5 mg PO DAILY 11/14/19 02/11/20 magnesium 400 mg PO TID 02/11/20 02/11/20 metformin 500 mg PO BID 02/11/20 02/11/20 omeprazole 20 mg PO DAILY 02/11/20 02/11/20 ondansetron HCl 8 mg PO Q8H PRN 02/11/20 02/11/20 Previous Rx's Medication Instructions Recorded aspirin 81 mg PO QAM #30 tab 08/19/19 Results & Data (ED) Vital Signs Vital Signs - 24 hr 02/11/20 11:35 02/11/20 11:36 02/11/20 12:16 Temperature 36.7 C Temperature Source Oral Pulse Rate 79 Pulse Rate from SpO2 Sensor 67 Respiratory Rate 16 Blood Pressure 158/105 H 212/100 H Blood Pressure Mean 122 107 Pulse Oximetry 97 96 Oxygen Delivery Method Room Air Room Air Sepsis Recent Fever Within 48 Hours No Sepsis New/Unexplained Change in Mental Status N/A Sepsis Action Taken by Nursing No Action Required 02/11/20 12:30 02/11/20 12:45 02/11/20 13:00 Temperature Temperature Source Pulse Rate Pulse Rate from SpO2 Sensor 63 67 69 Respiratory Rate Blood Pressure Blood Pressure Mean Pulse Oximetry 97 97 99 Oxygen Delivery Method Sepsis Recent Fever Within 48 Hours Sepsis New/Unexplained Change in Mental Status Sepsis Action Taken by Nursing 02/11/20 13:15 02/11/20 13:21 02/11/20 13:22 Temperature Temperature Source Pulse Rate 68 69 Pulse Rate from SpO2 Sensor 74 68 69 Respiratory Rate 19 Blood Pressure 213/107 H Blood Pressure Mean 145 Pulse Oximetry 96 98 98 Oxygen Delivery Method Sepsis Recent Fever Within 48 Hours Sepsis New/Unexplained Change in Mental Status Sepsis Action Taken by Nursing 02/11/20 13:30 02/11/20 13:40 02/11/20 13:45 Temperature Temperature Source Pulse Rate 72 69 64 Pulse Rate from SpO2 Sensor 71 71 61 Respiratory Rate 16 16 16 Blood Pressure 197/103 H Blood Pressure Mean 126 Pulse Oximetry 98 95 97 Oxygen Delivery Method Sepsis Recent Fever Within 48 Hours Sepsis New/Unexplained Change in Mental Status Sepsis Action Taken by Nursing 02/11/20 13:50 02/11/20 14:00 02/11/20 14:01 Temperature Temperature Source Pulse Rate 65 68 65 Pulse Rate from SpO2 Sensor 65 69 66 Respiratory Rate 14 17 16 Blood Pressure 209/97 H Blood Pressure Mean 115 Pulse Oximetry 97 97 97 Oxygen Delivery Method Sepsis Recent Fever Within 48 Hours Sepsis New/Unexplained Change in Mental Status Sepsis Action Taken by Nursing Laboratory Data Result diagrams: 02/11/20 11:55 02/11/20 11:55 Lab Results 02/11/20 02/11/20 02/11/20 Range/Units 11:54 11:55 11:55 WBC 6.50 (4.8-10.8) K/uL RBC 4.26 (4.2-5.4) M/uL Hgb 12.5 (12.0-16.0) g/dL POC Hgb (12.0-16.0) g/dl Hct 37.6 (37-47) % POC Hct (37-47) % MCV 88.3 (80-100) fL MCH 29.3 (25-34) pg MCHC 33.2 (32-36) g/dL RDW Std Deviation 44.5 (36.4-46.3) fL RDW Coeff of Ninoska 13.8 (11.5-14.5) % Plt Count 245 (130-400) K/uL MPV 9.5 (7.4-10.4) fL Immature Gran % (Auto) 0.2 % Neut % (Auto) 67.4 % Lymph % (Auto) 18.5 % [place] % (Auto) 10.9 % Eos % (Auto) 2.8 % Baso % (Auto) 0.2 % Neut # (Auto) 4.39 (1.4-6.5) K/uL Lymph # (Auto) 1.20 (1.2-3.4) K/uL [place] # (Auto) 0.71 H (0.11-0.59) K/uL Eos # (Auto) 0.18 (0-0.5) K/uL Baso # (Auto) 0.01 (0-0.2) K/uL Immature Gran # (Auto) 0.01 (0.00-0.02) K/uL POC Sodium (135-144) mmol/L Sodium 138 (136-145) mmol/L POC Potassium (3.3-5.0) mmol/L Potassium 4.2 (3.5-5.1) mmol/L POC Chloride (101-112) mmol/L Chloride 105 (98-107) mmol/L Carbon Dioxide 28 (21-32) mmol/L POC Total CO2 (24-31) mmol/L Anion Gap 5.0 (3-11) POC Anion Gap (16-25) mmol/L POC BUN (7-18) mg/dl BUN 15 (7-18) mg/dl Creatinine 0.73 (0.6-1.2) mg/dl POC Creatinine (0.6-1.3) mg/dl Est Cr Clr Drug Dosing 44.1 ml/min Est GFR ( Amer) 90.2 Est GFR (Non-Af Amer) 77.8 BUN/Creatinine Ratio 20.4 H (10-20) Glucose 101 H (70-99) mg/dl POC Glucose 110 H (70-99) mg/dl POC Glucose (other) (70-99) mg/dl Calcium 9.2 (8.5-10.1) mg/dl POC Ioniz Calcium John (1.12-1.32) mmol/l Magnesium (1.8-2.4) mg/dl Total Bilirubin 0.4 (0.2-1) mg/dl AST 21 (15-37) U/L ALT 16 (12-78) U/L Alkaline Phosphatase 68 (45-117) U/L Troponin I < 0.015 (0-0.045) ng/ml Total Protein 7.0 (6.4-8.2) gm/dl Albumin 3.5 (3.4-5.0) gm/dl Globulin 3.5 (2.5-4.0) gm/dl Albumin/Globulin Ratio 1.0 (0.9-2) TSH 1.000 (0.300-4.500) uIu/ml 02/11/20 02/11/20 Range/Units 11:55 12:04 WBC (4.8-10.8) K/uL RBC (4.2-5.4) M/uL Hgb (12.0-16.0) g/dL POC Hgb 13.3 (12.0-16.0) g/dl Hct (37-47) % POC Hct 39 (37-47) % MCV (80-100) fL MCH (25-34) pg MCHC (32-36) g/dL RDW Std Deviation (36.4-46.3) fL RDW Coeff of Ninoska (11.5-14.5) % Plt Count (130-400) K/uL MPV (7.4-10.4) fL Immature Gran % (Auto) % Neut % (Auto) % Lymph % (Auto) % [place] % (Auto) % Eos % (Auto) % Baso % (Auto) % Neut # (Auto) (1.4-6.5) K/uL Lymph # (Auto) (1.2-3.4) K/uL [place] # (Auto) (0.11-0.59) K/uL Eos # (Auto) (0-0.5) K/uL Baso # (Auto) (0-0.2) K/uL Immature Gran # (Auto) (0.00-0.02) K/uL POC Sodium 138 (135-144) mmol/L Sodium (136-145) mmol/L POC Potassium 4.1 (3.3-5.0) mmol/L Potassium (3.5-5.1) mmol/L POC Chloride 100 L (101-112) mmol/L Chloride (98-107) mmol/L Carbon Dioxide (21-32) mmol/L POC Total CO2 26 (24-31) mmol/L Anion Gap (3-11) POC Anion Gap 17.0 (16-25) mmol/L POC BUN 15 (7-18) mg/dl BUN (7-18) mg/dl Creatinine (0.6-1.2) mg/dl POC Creatinine 0.7 (0.6-1.3) mg/dl Est Cr Clr Drug Dosing ml/min Est GFR ( Amer) Est GFR (Non-Af Amer) BUN/Creatinine Ratio (10-20) Glucose (70-99) mg/dl POC Glucose (70-99) mg/dl POC Glucose (other) 106 H (70-99) mg/dl Calcium (8.5-10.1) mg/dl POC Ioniz Calcium John 1.26 (1.12-1.32) mmol/l Magnesium 1.2 L (1.8-2.4) mg/dl Total Bilirubin (0.2-1) mg/dl AST (15-37) U/L ALT (12-78) U/L Alkaline Phosphatase (45-117) U/L Troponin I (0-0.045) ng/ml Total Protein (6.4-8.2) gm/dl Albumin (3.4-5.0) gm/dl Globulin (2.5-4.0) gm/dl Albumin/Globulin Ratio (0.9-2) TSH (0.300-4.500) uIu/ml Administered Medications Sodium Chloride (Nss 1000ml) 1,000 mls @ 125 mls/hr IV .Q8H NIKA Stop: 02/11/20 19:44 Last Admin: 02/11/20 12:16 Dose: 125 mls/hr Documented by: [id number] Discontinued Medications Aspirin (Aspirin Chew 324 Mg) 324 mg PO NOW STA Stop: 02/11/20 12:40 Last Admin: 02/11/20 14:12 Dose: Not Given Documented by: [id number] Aspirin (Aspirin 300 Mg Supp) 300 mg VT ONE ONE Stop: 02/11/20 13:20 Last Admin: 02/11/20 14:11 Dose: 300 mg Documented by: [id number] Clopidogrel Bisulfate (Clopidogrel Bisulfate 300 Mg Tab) 300 mg PO NOW STA Stop: 02/11/20 12:40 Last Admin: 02/11/20 14:12 Dose: Not Given Documented by: [id number] Ioversol (Optiray 320 125ml) 120 ml IV ONCE ONE Stop: 02/11/20 12:16 Last Admin: 02/11/20 12:16 Dose: 120 ml Documented by: [id number] Discharge Plan Visit Data Chief Complaint: Weakness Stated Complaint: WEAKNESS,NUMBNESS IN HANDS ED Provider: Manuel Meza Discharge Problem: Acute CVA (cerebrovascular accident) Discharge Instructions Interventions: ED Discharge Assessment Last Done: 02/11/20 15:28
--- NOTE | 2020-02-11 15:05 | History & Physical Report ---
Date of Service February 11, 2020 Assessment & Plan (1) Acute CVA (cerebrovascular accident): Patient with acute CVA likely of small vessel. [facility] was consulted by ED physician. Recommended ASA, Plavix. No TPA- outside of the window. Recommended hydration- started in the ED. CTA of head and neck negative. Will check MRI of brain as well Hold lisinopril for now. Permissive HTN. Consider restarting in AM pending BP IV Labetolol PRN Q6h for Systolic BP >180 or Diastolic >100 (2) Hypertension: Patient with acute CVA likely of small vessel. Admit to PCU for telemetry [facility] was consulted by ED physician. Recommended ASA, Plavix. No TPA- outside of the window. Recommended hydration- started in the ED. CTA of head and neck negative. Will check MRI of brain as well Hold lisinopril for now. Permissive HTN. Consider restarting in AM pending BP IV Labetolol PRN Q6h for Systolic BP >180 or Diastolic >100 Neurology consultation Echocardiogram Speech eval. Dysphagia screening. NPO pending speech eval. Neuro checks PT/OT Fall & aspiration precautions Check Lipids in AM Start atorvastatin (3) Hypomagnesemia: Chronic hypomag IV Magnesium 2 g now. Continue PO Magnesium 400 mg TID Recheck Mag & Phos in AM (4) Diabetes mellitus, type 2: Hold PO meds Insulin protocol Check A1C in AM (5) Ovarian cancer: Port in place- does not require a treatment while inpatient (6) Anxiety: Patient will require family member with her due to severe anxiety without. Her will likely stay with her overnight. Will also give IV Haldol 1 mg HS and 0.5 mg in AM (7) DVT prophylaxis: SQ Heparin Q12h History of Present Illness Chief Complaint: Stroke Primary Care Provider: Juliano Miles MD Patient is an 79 yo female who presented to the ED for concern of stroke- like symptoms. She noted that her symptoms started last night with weakness of her right arm and leg along with slurred speech. Her symptoms worsened this morning to the point that she couldn't walk. EMS was called. Upon presentation to the ED, a stroke-alert was called by the ED physician. She was taken emergently for CT of the head and neck which were unrevealing. [facility] was contacted by the ED and patient was noted to NOT be a candidate for TPA due to the timeframe. Dr. Barragan ([facility]stroke physician) recommended ASA and Plavix and stroke workup inpatient. He felt that the patient likely has a small vessel CVA not seen on CTA. The patient was given VT ASA in the ED pending speech evaluation. Plavix was not give pending speech evaluation. Otherwise, patient has notable hypomagnesemia which she has chronically and takes PO Magnesium 400 mg TID. She does note that her weakness in the RUE and RLE continues. She continues to have problems swallowing and talking. She has no pain currently. She has been urinating frequently. She is a diabetic and typically takes Metformin and Glimepiride. BP has been elevated in the ED- allowing for permissive HTN at this time. 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 She has a port in place and has been receiving treatments. Allergies Allergy/AdvReac Type Severity Reaction Status Date / Time codeine Allergy Mild Unknown Verified 02/11/20 13:55 Penicillins Allergy Mild UNSURE OF Verified 02/11/20 13:55 REACTION Home Medications Home Medications Medication Instructions Recorded Confirmed Type cyanocobalamin (vitamin B-12) 1,000 mcg PO QAM 04/25/19 02/11/20 History [Vitamin B-12] glimepiride 1 mg PO UD 04/25/19 02/11/20 History multivitamin 1 cap PO QAM 04/25/19 02/11/20 History acetaminophen [Tylenol 8 Hour] 650 mg PO Q8H PRN 08/09/19 02/11/20 History metoprolol succinate 25 mg PO DAILY 08/09/19 02/11/20 History aspirin 81 mg PO QAM #30 tab 08/19/19 02/11/20 Rx lisinopril 2.5 mg PO DAILY 11/14/19 02/11/20 History magnesium 400 mg PO TID 02/11/20 02/11/20 History metformin 500 mg PO BID 02/11/20 02/11/20 History omeprazole 20 mg PO DAILY 02/11/20 02/11/20 History ondansetron HCl 8 mg PO Q8H PRN 02/11/20 02/11/20 History Past Med/Surg History Medical History (Updated 02/11/20 @ 15:09 by Chandrika Julio PA-C) Anxiety Breast cancer Cancer OVARIAN CANCER AND FOUND NODULE IN DUODENUM AREA AND WILL START CHEMO AFTER THANKS2018 Diabetes mellitus, type 2 GERD (gastroesophageal reflux disease) Hypertension Surgical History History of colon resection History of tonsillectomy Hx of colonoscopy Hx of eye surgery UNSURE SOMETHING TO DO WITH RETINA Hx of hysterectomy BSO Family History (Updated 02/11/20 @ 14:59 by Chandrika Julio PA-C) Mother Myocardial infarction Social History Smoking Status: Former smoker Second Hand Exposure: No; Hx Alcohol Use: Yes Alcohol type: wine Hx Substance Use: No Preferred Language: [place] Communication Ability: Effective Insurance Agency Owner Required: No Beliefs That Will Affect Care: Spiritual marital status: Current Living Situation: Spouse Other Information That Helps Us Care for You: Yes ([facility] psy chosis/delirium) Feels Safe at Home: Yes Safety Concerns: Feels Safe At This Time Review of Systems Review of Systems: All systems reviewed & are unremarkable except as noted in HPI & below Physical Exam Physical Exam: See Dr. Lares's addendum for more detailed exam findings. Constitutional: well developed, well nourished and + physical limitations (due to right sided weakness.); no altered mental status Eyes: PERRL, conjunctivae normal, anicteric sclerae ENMT: Ears: no hearing impairment Neck: trachea midline, no thyromegaly Respiratory: normal respiratory effort; no respiratory distress, no labored breathing and no cough Cardiovascular: Rate/Rhythm: regular rate and regular rhythm Skin: no rashes, warm and dry Neurologic: Speech / Cognition: + abnormal speech (slurred) Slight facial droop Results & Data Results & Data ([facility]) Vital Signs (Past 12 Hours) Vital Signs Temp Pulse Resp BP Pulse Ox 02/11/20 14:40 62 17 95 02/11/20 14:30 58 L 15 179/91 H 97 02/11/20 14:20 66 19 95 02/11/20 14:10 73 19 97 02/11/20 14:01 65 16 209/97 H 97 08/23/20 14:00 68 17 97 02/11/20 13:50 65 14 97 02/11/20 13:45 64 16 197/103 H 97 02/11/20 13:40 69 16 95 02/11/20 13:30 72 16 98 02/11/20 13:22 69 98 02/11/20 13:21 68 19 213/107 H 98 02/11/20 13:15 96 02/11/20 13:00 99 02/11/20 12:45 97 02/11/20 12:30 97 02/11/20 12:16 212/100 H 96 02/11/20 11:36 36.7 C 79 16 158/105 H 97 Laboratory Results Laboratory Results - last 24 hr 02/11/20 02/11/20 02/11/20 11:54 11:55 11:55 WBC 6.50 RBC 4.26 Hgb 12.5 POC Hgb Hct 37.6 POC Hct MCV 88.3 MCH 29.3 MCHC 33.2 RDW Std Deviation 44.5 RDW Coeff of Ninoska 13.8 Plt Count 245 MPV 9.5 Immature Gran % (Auto) 0.2 Neut % (Auto) 67.4 Lymph % (Auto) 18.5 [place] % (Auto) 10.9 Eos % (Auto) 2.8 Baso % (Auto) 0.2 Neut # (Auto) 4.39 Lymph # (Auto) 1.20 [place] # (Auto) 0.71 H Eos # (Auto) 0.18 Baso # (Auto) 0.01 Immature Gran # (Auto) 0.01 POC Sodium Sodium 138 POC Potassium Potassium 4.2 POC Chloride Chloride 105 Carbon Dioxide 28 POC Total CO2 Anion Gap 5.0 POC Anion Gap POC BUN BUN 15 Creatinine 0.73 POC Creatinine Est Cr Clr Drug Dosing 44.1 Est GFR ( Amer) 90.2 Est GFR (Non-Af Amer) 77.8 BUN/Creatinine Ratio 20.4 H Glucose 101 H POC Glucose 110 H POC Glucose (other) Calcium 9.2 POC Ioniz Calcium John Magnesium Total Bilirubin 0.4 AST 21 ALT 16 Alkaline Phosphatase 68 Troponin I < 0.015 Total Protein 7.0 Albumin 3.5 Globulin 3.5 Albumin/Globulin Ratio 1.0 TSH 1.000 02/11/20 02/11/20 11:55 12:04 WBC RBC Hgb POC Hgb 13.3 Hct POC Hct 39 MCV MCH MCHC RDW Std Deviation RDW Coeff of Ninoska Plt Count MPV Immature Gran % (Auto) Neut % (Auto) Lymph % (Auto) [place] % (Auto) Eos % (Auto) Baso % (Auto) Neut # (Auto) Lymph # (Auto) [place] # (Auto) Eos # (Auto) Baso # (Auto) Immature Gran # (Auto) POC Sodium 138 Sodium POC Potassium 4.1 Potassium POC Chloride 100 L Chloride Carbon Dioxide POC Total CO2 26 Anion Gap POC Anion Gap 17.0 POC BUN 15 BUN Creatinine POC Creatinine 0.7 Est Cr Clr Drug Dosing Est GFR ( Amer) Est GFR (Non-Af Amer) BUN/Creatinine Ratio Glucose POC Glucose POC Glucose (other) 106 H Calcium POC Ioniz Calcium John 1.26 Magnesium 1.2 L Total Bilirubin AST ALT Alkaline Phosphatase Troponin I Total Protein Albumin Globulin Albumin/Globulin Ratio TSH Diagnostic Findings CT angio head wo/w: IMPRESSION: 1. No acute intracranial findings. 2. Unremarkable CTA of the head. No central vessel occlusion. CT Angio Neck: IMPRESSION: Unremarkable CTA of the neck. No dissection. No stenosis. CXR: IMPRESSION: Slight increase in nonspecific interstitial thickening. Otherwise, unchanged appearance of the chest. Code Status & VTE Plan VTE Prophylaxis Plan VTE Prophylaxis will be ordered: No Supervising Physician Co-Signing Physician Notes Physical Exam Gen-AAO x 3, NAD, Afebrile Head-NCAT, EOMI, PERRLA, Anicteric Sclera, No Posterior Pharyngeal Erythema Neck-Supple, No JVD, No Thyromegaly, No Masses, No LAD, No Bruits Lungs-Clear to Auscultation Bilaterally, No Rales, No Rhonchi, No Wheezing, No Crepitus Chest-No S4, +S1, +S2, No S3, No Murmurs, No Rubs, No Gallops, No Ectopy Abdomen-Soft, Bowel Sounds Present, Non Tender, Non Distended, No Hepatomegaly, No Splenomegaly, No Palpable Masses, No Rebound, No Rigidity, No Guarding Musculoskeletal-Full Range of Motion Bilaterally, No CVAT Extremities-No Cyanosis, No Clubbing, No Edema Nuero-Mild Speech Impediment, Cranial Nerves II-XII grossly intact, Motor WNL, DTRs WNL, Strength Dec Rl Psych-Normal Mood (1) Ovarian cancer Laterality: unspecified laterality Qualified Code(s): C56.9 - Malignant neoplasm of unspecified ovary
[2020-02-11] MEDS ORDERED: GLUCAGON FOR INJ 1 MG VIAL SQ PRN (15:52)
[2020-02-11] MEDS ORDERED: ACETAMINOPHEN 325 MG TAB PO PRN (15:52)
[2020-02-11] MEDS ORDERED: GLUCOSE 40% GEL 15 GM TUBE PO PRN (15:52)
[2020-02-11] MEDS ORDERED: PHARMACIST DISCHARGE MED REC CONSULT PRN (15:52)
[2020-02-11] MEDS ORDERED: DEXTROSE 50% 50 ML SYRINGE IV PRN (15:52)
[2020-02-11] MEDS ORDERED: CARBOHYDRATES FOR HYPOGLYCEMIA PO PRN (15:52)
[2020-02-11] MEDS ORDERED: GLUCOSE 10 TABS/TUBE PO PRN (15:52)
[2020-02-11] MEDS: MAGNESIUM SULFATE / D5W 1 GM/100 ML BAG IV SCH ×2 (16:05→18:17)
[2020-02-11] MEDS ORDERED: Nursing to Pharmacy Communication SCH (16:30)
[2020-02-11] MEDS ORDERED: INSULIN ASPART 100 UNITS/ML 3 ML PEN SC SCH (16:30)
[2020-02-11] MEDS ORDERED: PNEUMOCOCCAL POLYSACCHARIDES 25 MCG/0.5 ML VIAL/SYR IM ONE (16:53)
[2020-02-11] MEDS ORDERED: PNEUMOCOCCAL ADMINISTRATION CHARGE ONE (16:53)
[2020-02-11] MEDS ORDERED: GADOBUTROL 30ML VIAL IV ONE (17:26)
--- NOTE | 2020-02-11 17:40 | Magnetic Resonance Report ---
MRI OF THE BRAIN WITHOUT AND WITH IV CONTRAST CLINICAL HISTORY: Stroke COMPARISON STUDY: Head CT and CTA of the head performed earlier today. MRI of the brain August 16, 2019 TECHNIQUE: Utilizing a 1.5 Jaylene magnet and dedicated coil, multiplanar, multiecho imaging of the br ain was performed pre and postcontrast administration. IV administration of 5.5 mL of Gadavist contr ast was uneventful. FINDINGS: Note is made of a 1.3 x 0.6 cm focus of restricted diffusion within the lateral left thalam us. This may slightly extend into the posterior limb of the left internal capsule. This represents an acute infarct. No additional foci of acute infarction are noted. There is moderate atrophy. This acc ounts for mild ventricular dilatation. The basilar cisterns are patent. There are no extra axial shayan ections. There is no intracranial mass or pathologic enhancement. Calvarial signal is normal. Orbits are unremarkable. White matter T2 hyperintense foci suggest mild small vessel disease. IMPRESSION: 1. 1.3 x 0.6 cm acute infarct within the lateral left thalamus. No mass effect or hemorrhage. 2. Moderate atrophy and small vessel disease. ACT 112: Negative or not required by law. Electronically signed by: Tye Elliott M.D. 02/11/2020 5:39 PM
[2020-02-11] MEDS: INSULIN ASPART 100 UNITS/ML 3 ML PEN SC SCH (18:18)
[2020-02-11] MEDS: INSULIN GLARGINE SOLOSTAR 100 UNITS/ML 3 ML PEN SC SCH (19:44)
[2020-02-11] MEDS ORDERED: HALOPERIDOL LACTATE 5 MG/ML 1 ML VIAL IM PRN (20:00)
[2020-02-11] MEDS: MAGNESIUM OXIDE 400 MG TAB PO SCH (20:25)
[2020-02-11] MEDS: HEPARIN SOD 5,000 UNIT/0.5 ML VIAL SQ SCH (20:25)
[2020-02-11] MEDS ORDERED: haloperidoL 1 MG TAB PO SCH (21:00)
[2020-02-11 21:50] LABS: Appearance Urine Clear (Clear); Bacteria Urine Automated Negative (Negative); Bilirubin Urine Negative (Negative); Blood Urine Negative (Negative); Cast Urine Automated 0 /lpf (0-5); Color Urine Yellow; Glucose Urine UA Negative (Negative); Ketones Urine Negative (Negative); Leukocyte Esterase Urine Negative (Negative); Nitrite Urine Negative (Negative); RBC Urine Automated 0-4 /hpf (0-4); Specific Gravity Urine 1.036 (1.000-1.030); Urobilinogen Urine Negative (Negative); WBC Urine Automated 0 /hpf (0-5)
[2020-02-11 22:13] LABS: Protein Urine 2+ (Negative); Sulfosalicylic Acid Urine Positive (Negative)
[2020-02-11] MEDS ORDERED: DiphenhydrAMINE HCL 50 MG/ML VIAL IM STA (23:46)
[2020-02-11] MEDS ORDERED: DiphenhydrAMINE HCL 50 MG/ML VIAL IV STA (23:52)
[2020-02-12] MEDS: INSULIN ASPART 100 UNITS/ML 3 ML PEN SC SCH ×5 (00:20→20:14)
[2020-02-12 06:05] LABS: Basophils # (auto) 0.01 K/uL (0-0.2); Basophils % (auto) 0.2 %; Eosinophils # (auto) 0.23 K/uL (0-0.5); Eosinophils % (auto) 4.3 %; Hematocrit (blood only) 37.7 % (37-47); Hemoglobin 12.3 g/dL (12.0-16.0); Immature Granulocytes # (auto) 0.01 K/uL (0.00-0.02); Immature Granulocytes % (auto) 0.2 %; Lymphocytes # (auto) 1.13 K/uL (1.2-3.4); Lymphocytes % (auto) 21.4 %; Mean Corpuscular Hemoglobin 29.4 pg (25-34); Mean Corpuscular Hgb Conc 32.6 g/dL (32-36); Mean Platelet Volume 10.5 fL (7.4-10.4); Monocytes # (auto) 0.78 K/uL (0.11-0.59); Monocytes % (auto) 14.7 %; Neutrophils # (auto) 3.13 K/uL (1.4-6.5); Neutrophils % (auto) 59.2 %; Platelet Count 262 K/uL (130-400); RDW Coefficient of Variation 13.9 % (11.5-14.5); RDW Standard Deviation 46.4 fL (36.4-46.3); Red Blood Count 4.19 M/uL (4.2-5.4); White Blood Count 5.29 K/uL (4.8-10.8)
[2020-02-12 06:29] LABS: Calcium 8.8 mg/dl (8.5-10.1); Creatinine Clr Calc Pharmacy 51.2 ml/min; Est GFR (African American) 98.2; Est GFR (Non-African American) 84.7; Magnesium 1.7 mg/dl (1.8-2.4); Potassium 3.8 mmol/L (3.5-5.1)
[2020-02-12 06:32] LABS: Phosphorus 3.6 mg/dl (2.5-4.9)
--- NOTE | 2020-02-12 07:16 | Hospitalist Progress Note ---
Date of Service February 12, 2020 Assessment & Plan (1) Acute CVA (cerebrovascular accident): Patient with acute CVA-1.3 x 0.6 cm acute infarct within the lateral left thalamus. [place] [facility] was consulted by ED physician. Recommended ASA, Plavix. No TPA-outside of the window. Recommended hydration- started in the ED. CTA of head and neck negative. MRI-1.3 x 0.6 cm acute infarct within the lateral left thalamus. Permissive HTN. IV Labetolol PRN Q6h for Systolic BP >180 or Diastolic >100 (2) Hypertension: Acute CVA Neurology to see Echocardiogram Speech eval. Dysphagia screening. NPO pending speech eval. Neuro checks PT/OT Fall & aspiration precautions Statin (3) Hypomagnesemia: Chronic hypomag IV Magnesium 2 g now. Continue PO Magnesium 400 mg TID monitor (4) Diabetes mellitus, type 2: Hold PO meds Insulin protocol (5) Ovarian cancer: Port in place- does not require a treatment while inpatient (6) Anxiety: Patient will require family member with her due to severe anxiety without. Her will likely stay with her overnight. Haldol 1 mg HS and 0.5 mg in AM to prevent severe owning from last (7) DVT prophylaxis: SQ Heparin Q12h Acute rehab on DC in 1-2 days labs checked ROS-No Headache, No Visual Changes, No Nausea, No Vomiting, No Fever, No Chills, No Neck Pain or Stiffness, No Chest Pain, No Palpitations, No SOB, No RICHARDSON, No Cough, No Sputum, No Wheezing, No Abdominal Pain, No Diarrhea, No Hematemesis, No Hemoptysis, No Unexpected Weight Loss, No Flank pain, No Melena, No Hematochezia, No Frequency, No Urgency, No Burning, No Hematuria, No Rashes, No Diaphoresis. Appetite is Normal Physical Exam Gen-AAO x 3, NAD, Afebrile Head-NCAT, EOMI, PERRLA, Anicteric Sclera, No Posterior Pharyngeal Erythema Neck-Supple, No JVD, No Thyromegaly, No Masses, No LAD, No Bruits Lungs-Clear to Auscultation Bilaterally, No Rales, No Rhonchi, No Wheezing, No Crepitus Chest-No S4, +S1, +S2, No S3, No Murmurs, No Rubs, No Gallops, No Ectopy Abdomen-Soft, Bowel Sounds Present, Non Tender, Non Distended, No Hepatomegaly, No Splenomegaly, No Palpable Masses, No Rebound, No Rigidity, No Guarding Musculoskeletal-Full Range of Motion Bilaterally, No CVAT Extremities-No Cyanosis, No Clubbing, No Edema Nuero-Cranial Nerves II-XII grossly intact, Motor WNL, DTRs WNL, Strength subtle weakness R Psych-Normal Mood Admission and Anticipated Discharge Date Admission Date: February 11, 2020 Results & Data Results & Data ([facility]) Vital Signs (Past 12 Hours) Vital Signs Temp Pulse Pulse Resp BP BP Pulse Ox 02/12/20 03:27 37 C 79 16 166/64 H 95 02/11/20 23:44 74 02/11/20 23:28 36.5 C 70 16 164/95 H 95 02/11/20 19:47 36.5 C 62 18 183/95 H 95 (1) Ovarian cancer Laterality: unspecified laterality Qualified Code(s): C56.9 - Malignant neoplasm of unspecified ovary
[2020-02-12 08:03] LABS: Estimated Average Glucose 123 mg/dl; Hemoglobin A1C 5.9 % (4.5-5.6)
[2020-02-12] MEDS ORDERED: HALOPERIDOL LACTATE 5 MG/ML 1 ML VIAL IM ONE (08:08)
[2020-02-12] MEDS ORDERED: HALOPERIDOL LACTATE 5 MG/ML 1 ML VIAL IM STA (08:11)
[2020-02-12] MEDS: INSULIN GLARGINE SOLOSTAR 100 UNITS/ML 3 ML PEN SC SCH ×2 (08:16→20:14)
[2020-02-12] MEDS: HEPARIN SOD 5,000 UNIT/0.5 ML VIAL SQ SCH ×2 (08:21→20:12)
[2020-02-12] MEDS ORDERED: haloperidoL 0.5 MG TAB PO SCH (09:00)
[2020-02-12] MEDS ORDERED: HALOPERIDOL LACTATE 5 MG/ML 1 ML VIAL IV SCH (09:00)
--- NOTE | 2020-02-12 10:04 | Electrocardiogram Report ---
Test Reason : Blood Pressure : / mmHG Vent. Rate : 070 BPM Atrial Rate : 070 BPM P-R Int : 146 ms QRS Dur : 068 ms QT Int : 404 ms P-R-T Axes : 053 016 035 degrees QTc Int : 436 ms Poor data quality, interpretation may be adversely affected Normal sinus rhythm Normal ECG When compared with ECG of 14-NOV-2019 04:03, No significant change was found Confirmed by Mingo Stauffer ([id number]) on 02/12/2020 10:03:25 AM Referred By: REFERRED SELF Confirmed By:Mingo Stauffer
--- NOTE | 2020-02-12 10:15 | Electrocardiogram Report ---
Test Reason : Blood Pressure : / mmHG Vent. Rate : 071 BPM Atrial Rate : 071 BPM P-R Int : 148 ms QRS Dur : 068 ms QT Int : 420 ms P-R-T Axes : 008 051 055 degrees QTc Int : 456 ms Normal sinus rhythm Normal ECG When compared with ECG of 11-FEB-2020 12:02, No significant change was found Confirmed by Mingo Stauffer ([id number]) on 02/12/2020 10:15:18 AM Referred By: REFERRED SELF Confirmed By:Mingo Stauffer
--- NOTE | 2020-02-12 10:59 | XCELERA ---
[id number]
[2020-02-12] MEDS ORDERED: Nursing to Pharmacy Communication SCH (11:15)
[2020-02-12] MEDS: ATORVASTATIN 40 MG TAB PO SCH (11:22)
[2020-02-12] MEDS: ASPIRIN 81 MG ECTAB PO SCH (11:22)
[2020-02-12] MEDS: MAGNESIUM OXIDE 400 MG TAB PO SCH ×3 (11:23→20:12)
[2020-02-12] MEDS: CYANOCOBALAMIN 500 MCG TABLET (VITAMIN B-12) PO SCH (11:24)
[2020-02-12] MEDS: CLOPIDOGREL BISULFATE 75 MG TAB PO SCH (11:24)
[2020-02-12] MEDS: PANTOprazole 40 MG TAB PO SCH (11:24)
[2020-02-12] MEDS: CEROVITE ADV FORMULA TAB PO SCH (11:24)
--- NOTE | 2020-02-12 15:05 | Consultation Report ---
DATE OF CONSULTATION: 02/12/2020 NEUROLOGY CONSULTATION NOTE CHIEF COMPLAINT: Right-sided weakness and slurred speech. HISTORY OF PRESENT ILLNESS: An 79-year-old woman presenting to the Emergency Department yesterday for right upper and right lower extremity weakness with slurred speech. The symptoms started on Wednesday prior to admission. Her symptoms worsened on Wednesday to the point that she could not walk, so EMS was called. Upon arrival to the Emergency Department, a stroke alert was called. She was taken emergently to the CT scanner where CT head and neck was unrevealing. A telestroke consultation was performed. TPA was not administered. The patient was started on aspirin and Plavix and was admitted to the inpatient service for further evaluation. ALLERGIES: CODEINE AND PENICILLIN. HOME MEDICATIONS: Include vitamin B12 1000 mcg daily, glimepiride 1 mg, multivitamin, Tylenol every 8 hours as needed, metoprolol 25 mg daily, aspirin 81 mg daily, lisinopril 2.5 mg daily, metformin 500 mg twice daily, omeprazole 20 mg daily, Zofran 8 mg as needed and magnesium 400 mg 3 times daily. PAST MEDICAL HISTORY: Includes anxiety, breast cancer, ovarian cancer, type 2 diabetes, hypertension, gastroesophageal reflux disease. PAST SURGICAL HISTORY: She has a history of colon resection, history of tonsillectomy, colonoscopy, eye surgery and hysterectomy. FAMILY HISTORY: Her mother is from a myocardial infarction. SOCIAL HISTORY: She is a former smoker. She drinks alcohol occasionally including wine. She is . REVIEW OF SYSTEMS: All systems reviewed and are unremarkable except as noted above in the HPI. PHYSICAL EXAMINATION: VITAL SIGNS: Blood pressure 173/61, pulse is 65, respiratory rate is 18, temperature is 36.5 degrees Celsius, oxygen saturation is 95% on room air. EXAM: Constitutional: appearance normally developed Face: normocephalic and atraumatic Eyes: normal lids, normal conjunctiva Neck: supple Respiratory: normal effort Cardiovascular: normal pulses Abdomen: non distended Skin: no rashes, lesions, or ulcers noted Psychiatric: normal mood and normal affect NEUROLOGIC EXAMINATION: Appearance: no acute distress Orientation: awake, alert and oriented x 3 Mental Status: alert Attention: normal Knowledge: appropriate Language: comprehension is intact Speech: moderate dysarthria Cranial Nerves: CN 2 - no visual defect on confrontation and pupils round, equal, reactive to light CN 3, 4, 6 - extra-ocular movements intact CN 5 - facial sensation intact CN 7 - no facial asymmetry CN 8 - grossly hard of hearing CN 9, 10 - palate symmetric CN 11 - good shoulder shrug CN 12 - tongue midline Gait: deferred Coordination: right upper extremity ataxia Sensory: intact and symmetric to light touch Muscle Tone: normal Muscle exam: 5/5 throughout Reflexes: toes down going DIAGNOSTIC TESTING AND LABORATORIES: WBC 5.29, hemoglobin 12.3, platelet count is 262. INR is 1.0. Sodium is 139, potassium 3.8, chloride 105, carbon dioxide 28, BUN is 11, creatinine is 0.63, glucose is 109, hemoglobin A1c is pending. LDL cholesterol 65, HDL cholesterol 93. TSH is 1.00. Echocardiogram: Ejection fraction of 55%-60%. Left ventricle is normal in size. The interatrial septum is intact with no evidence of an atrial septal defect. CTA head and neck: No acute intracranial findings. Unremarkable CTA of the head. No intracranial vessel occlusion. Unremarkable CTA of the neck, no dissection, no stenosis. MRI of the brain with and without IV contrast: Acute infarct within the left lateral thalamus. No mass effect or hemorrhage. Moderate atrophy and small vessel disease. ASSESSMENT AND PLAN: A pleasant 79-year-old woman admitted with a left posterior limb of the internal capsule ischemic stroke, likely secondary to small vessel ischemic disease. Risk factors include former smoker, chronic hypertension as well as type 2 diabetes. Agree with dual antiplatelet therapy, aspirin 81 mg daily and Plavix 75 mg daily for 21 days. Recommend starting a high intensity statin, Lipitor 40 mg daily. Recommend blood pressure control of systolic blood pressure less than 140 and diastolic blood pressure less than 90. Physical therapy, occupational therapy evaluation for rehabilitation needs. The patient will require neurology followup in 8 weeks after hospital discharge. Otherwise, Neurology will sign off for now. Please contact me with any additional questions or concerns. ADRIEND
[2020-02-12] MEDS: LABETALOL HCL IV 5 MG/ML 20ML IV PRN ×2 (15:40→22:12)
[2020-02-12] MEDS: MIRTAZAPINE TAB 15 MG TAB PO SCH (20:11)
[2020-02-12] MEDS: HALOPERIDOL LACTATE 5 MG/ML 1 ML VIAL IM SCH (21:57)
[2020-02-13] MEDS ORDERED: HALOPERIDOL LACTATE 5 MG/ML 1 ML VIAL IM STA (06:29)
[2020-02-13] MEDS: HALOPERIDOL LACTATE 5 MG/ML 1 ML VIAL IM SCH ×2 (08:45→21:51)
[2020-02-13] MEDS: INSULIN GLARGINE SOLOSTAR 100 UNITS/ML 3 ML PEN SC SCH ×2 (08:49→21:54)
[2020-02-13] MEDS: HEPARIN SOD 5,000 UNIT/0.5 ML VIAL SQ SCH ×2 (08:49→21:54)
[2020-02-13] MEDS: INSULIN ASPART 100 UNITS/ML 3 ML PEN SC SCH ×4 (08:50→21:55)
[2020-02-13] MEDS: CEROVITE ADV FORMULA TAB PO SCH (08:51)
[2020-02-13] MEDS: MAGNESIUM OXIDE 400 MG TAB PO SCH ×3 (08:51→21:57)
[2020-02-13] MEDS: CYANOCOBALAMIN 500 MCG TABLET (VITAMIN B-12) PO SCH (08:52)
[2020-02-13] MEDS: ATORVASTATIN 40 MG TAB PO SCH (08:52)
[2020-02-13] MEDS: PANTOprazole 40 MG TAB PO SCH (08:52)
[2020-02-13] MEDS: CLOPIDOGREL BISULFATE 75 MG TAB PO SCH (08:53)
[2020-02-13] MEDS: ASPIRIN 81 MG ECTAB PO SCH (08:53)
--- NOTE | 2020-02-13 09:18 | Discharge Summary ---
Date of Service February 13, 2020 Admission HPI Per Admitting Provider Patient is an 79 yo female who presented to the ED for concern of stroke- like symptoms. She noted that her symptoms started last night with weakness of her right arm and leg along with slurred speech. Her symptoms worsened this morning to the point that she couldn't walk. EMS was called. Upon presentation to the ED, a stroke-alert was called by the ED physician. She was taken emergently for CT of the head and neck which were unrevealing. [place] Tele-stroke was contacted by the ED and patient was noted to NOT be a candidate for TPA due to the timeframe. Dr. Barragan ([place] tele-stroke physician) recommended ASA and Plavix and stroke workup inpatient. He felt that the patient likely has a small vessel CVA not seen on CTA. The patient was given [place] ASA in the ED pending speech evaluation. Plavix was not give pending speech evaluation. Otherwise, patient has notable hypomagnesemia which she has chronically and takes PO Magnesium 400 mg TID. She does note that her weakness in the RUE and RLE continues. She continues to have problems swallowing and talking. She has no pain currently. She has been urinating frequently. She is a diabetic and typically takes Metformin and Glimepiride. BP has been elevated in the ED- allowing for permissive HTN at this time. 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 She has a port in place and has been receiving treatments. Admission Exam Per Admitting Provider Constitutional: well developed, well nourished and + physical limitations (due to right sided weakness.); no altered mental status Eyes: PERRL, conjunctivae normal, anicteric sclerae ENMT: Ears: no hearing impairment Neck: trachea midline, no thyromegaly Respiratory: normal respiratory effort; no respiratory distress, no labored breathing and no cough Cardiovascular: Rate/Rhythm: regular rate and regular rhythm Skin: no rashes, warm and dry Neurologic: Speech / Cognition: + abnormal speech (slurred) Slight facial droop Principal Diagnosis (1) Acute CVA (cerebrovascular accident): (2) Hypertension: (3) Hypomagnesemia: (4) Diabetes mellitus, type 2: (5) Ovarian cancer: (6) Anxiety: Discharge Exam See below Discharge Data Allergies Allergy/AdvReac Type Severity Reaction Status Date / Time codeine Allergy Mild Unknown Verified 02/11/20 13:55 Penicillins Allergy Mild UNSURE OF Verified 02/11/20 13:55 REACTION Consultations 02/11/20 13:20 ED Decision to Admit Stat 02/11/20 15:52 Consult Case Management - Discharge Planning Routine Consult Neurology Routine Ordered Studies 02/11/20 12:02 CT angio head wo/w Stat CT angio neck with con Stat 02/11/20 15:52 MR brain wo/w con Routine Current Diagnoses Malignant neoplasm of unspecified ovary (02/11/20) Type 2 diabetes mellitus without complications (02/11/20) Hypomagnesemia (02/11/20) Anxiety disorder, unspecified (02/11/20) Essential (primary) hypertension (02/11/20) Cerebral infarction, unspecified (02/11/20) Encounter for prophylactic measures, unspecified (02/11/20) Allergies codeine Allergy (Mild, Verified 02/11/20 13:55) Unknown Penicillins Allergy (Mild, Verified 02/11/20 13:55) UNSURE OF REACTION Height/Weight/Isolation Height 5 ft Weight 51 kg Chemistry 02/11/20 02/12/20 11:55 05:23 Sodium 138 139 Potassium 4.2 3.8 Chloride 105 105 Carbon Dioxide 28 28 Anion Gap 5.0 6.0 BUN 15 11 Creatinine 0.73 0.63 Glucose 101 H 109 H Urinalysis 02/11/20 21:10 Urine Color Yellow Urine Appearance Clear Urine pH 8.0 H Ur Specific [place] 1.036 H Urine Protein 2+ H Urine Glucose (UA) Negative Urine Ketones Negative Urine Blood Negative Urine Nitrite Negative Urine Bilirubin Negative Hospital Course (1) Acute CVA (cerebrovascular accident): Patient with acute CVA-1.3 x 0.6 cm acute infarct within the lateral left thalamus. [place] Tele-Stroke was consulted by ED physician. Recommended ASA, Plavix. No TPA-outside of the window. Recommended hydration- started in the ED. CTA of head and neck negative. MRI-1.3 x 0.6 cm acute infarct within the lateral left thalamus. Keep BP<140 (2) Hypertension: Acute CVA Neurology on case, f/u in [address] Lee Echocardiogram Noted PT/OT Fall & aspiration precautions Statin (3) Hypomagnesemia: Chronic hypomag Continue PO Magnesium 400 mg TID (4) Diabetes mellitus, type 2: Hold PO meds Insulin protocol (5) Ovarian cancer: Port in place- does not require a treatment while inpatient (6) Anxiety: Patient will require family member with her due to severe anxiety without. Her will likely stay with her overnight. Scheduled Haldol 1 mg HS and 0.5 mg in AM to prevent the severe sundowning she had on previous visits. DC wo Haldol (7) DVT prophylaxis: SQ Heparin Q12h Acute Rehab, Await Placement labs checked ROS-No Headache, No Visual Changes, No Nausea, No Vomiting, No Fever, No Chills, No Neck Pain or Stiffness, No Chest Pain, No Palpitations, No SOB, No RICHARDSON, No Cough, No Sputum, No Wheezing, No Abdominal Pain, No Diarrhea, No Hematemesis, No Hemoptysis, No Unexpected Weight Loss, No Flank pain, No Melena, No Hematochezia, No Frequency, No Urgency, No Burning, No Hematuria, No Rashes, No Diaphoresis. Appetite is Normal Physical Exam Gen-AAO x 3, NAD, Afebrile Head-NCAT, EOMI, PERRLA, Anicteric Sclera, No Posterior Pharyngeal Erythema Neck-Supple, No JVD, No Thyromegaly, No Masses, No LAD, No Bruits Lungs-Clear to Auscultation Bilaterally, No Rales, No Rhonchi, No Wheezing, No Crepitus Chest-No S4, +S1, +S2, No S3, No Murmurs, No Rubs, No Gallops, No Ectopy Abdomen-Soft, Bowel Sounds Present, Non Tender, Non Distended, No Hepatomegaly, No Splenomegaly, No Palpable Masses, No Rebound, No Rigidity, No Guarding Musculoskeletal-Full Range of Motion Bilaterally, No CVAT Extremities-No Cyanosis, No Clubbing, No Edema Nuero-Cranial Nerves II-XII grossly intact, Motor WNL, DTRs WNL, Strength subtle weakness R Psych-Normal Mood Total Time Total Time Spent Total Time Spent (In Minutes): 45 min Total Time Includes: Examination of the Patient, Discharge Planning, Medication Reconciliation and Communication With Other Providers Discharge Plan Discharge Items Patient Disposition: Transfer Inpatient Rehab Fac Reason For Visit: STROKE Discharge Diagnosis: (1) Acute CVA (cerebrovascular accident): (2) Hypertension: (3) Hypomagnesemia: (4) Diabetes mellitus, type 2: (5) Ovarian cancer: (6) Anxiety: Condition on Discharge: Fair Health Concerns: Sundowning Activity: Resume your previous activity Lifting: None Bathing: No limitations Exercise/Sports: None Driving/Machine Use: none Weightbearing: Full weightbearing Non-emergency contact: Primary Care Provider and Neurologist Call non-emergency contact if: you have any medication questions Follow-up/Referrals: Juliano Miles MD [Primary Care Provider] - Grant Lee DO [Physician] - (8 weeks) Diet: Carb Consistent or DM2 and Heart Healthy Addtl Attending Provider Instructions: Frequent assurance and orientation, family to be nearby as much as possible Pending Studies at Discharge: No Stand-Alone Forms: [facility] Skilled Items Patient informed of condition?: Yes DNR: No Discharge Level of Care: Acute rehab Communicable Disease: No Discharge Prognosis: Improving Lines: None Urinary Catheter: No Medications and DC Order Prescriptions: New clopidogrel 75 mg Tablet 75 mg PO QAM Qty: 30 RF: 0 atorvastatin 40 mg Tablet 40 mg PO QAM Qty: 30 RF: 0 mirtazapine 15 mg Tablet 7.5 mg PO HS Qty: 30 RF: 0 Continued cyanocobalamin (vitamin B-12) [Vitamin B-12] 1,000 mcg Tablet 1,000 mcg PO QAM RF: 0 glimepiride 1 mg Tablet 1 mg PO UD RF: 0 multivitamin Capsule 1 cap PO QAM RF: 0 metoprolol succinate 25 mg Tablet Extended Release 24 Hr 25 mg PO DAILY RF: 0 acetaminophen [Tylenol 8 Hour] 650 mg tablet extended release 650 mg PO Q8H PRN (Reason: Fever Or Pain) RF: 0 aspirin 81 mg Tablet,Delayed Release (Dr/Ec) 81 mg PO QAM Qty: 30 RF: 0 metformin 500 mg tablet 500 mg PO BID RF: 0 ondansetron HCl 8 mg tablet 8 mg PO Q8H PRN (Reason: Nausea) RF: 0 omeprazole 20 mg capsule,delayed release(DR/EC) 20 mg PO DAILY RF: 0 magnesium 200 mg Tablet 400 mg PO TID RF: 0 lisinopril 2.5 mg tablet 2.5 mg PO DAILY RF: 0 Admission Data Admit Date/Time: 02/11/20 14:08 Attending Provider: Sriram Lares Admit Provider: Sriram Lares Primary Care Provider: Juliano Miles Other Providers: [facility] ; Sriram Lares ; Grant Lee
[2020-02-13] MEDS ORDERED: METOPROLOL TARTRATE 1 MG/ML VIAL IV STA (09:34)
[2020-02-13 11:47] LABS: Hematocrit (blood only) 37.6 % (37-47); Hemoglobin 12.5 g/dL (12.0-16.0); Mean Corpuscular Hemoglobin 29.6 pg (25-34); Mean Corpuscular Hgb Conc 33.2 g/dL (32-36); Mean Corpuscular Volume 89.1 fL (80-100); Mean Platelet Volume 9.7 fL (7.4-10.4); Platelet Count 242 K/uL (130-400); RDW Standard Deviation 45.7 fL (36.4-46.3); Red Blood Count 4.22 M/uL (4.2-5.4); White Blood Count 6.37 K/uL (4.8-10.8)
[2020-02-13 12:04] LABS: Calcium 9.2 mg/dl (8.5-10.1); Creatinine Clr Calc Pharmacy 38.8 ml/min; Est GFR (African American) 77.2; Est GFR (Non-African American) 66.6; Potassium 4.3 mmol/L (3.5-5.1)
--- NOTE | 2020-02-13 13:15 | Hospitalist Progress Note ---
Date of Service February 13, 2020 Assessment & Plan (1) Acute CVA (cerebrovascular accident): Patient with acute CVA-1.3 x 0.6 cm acute infarct within the lateral left thalamus. [place] Tele-Stroke was consulted by ED physician. Recommended ASA, Plavix. No TPA-outside of the window. Recommended hydration- started in the ED. CTA of head and neck negative. MRI-1.3 x 0.6 cm acute infarct within the lateral left thalamus. Keep BP<140 (2) Hypertension: Acute CVA Neurology on case, f/u in [address] Lee Echocardiogram Noted PT/OT Fall & aspiration precautions Statin (3) Hypomagnesemia: Chronic hypomag Continue PO Magnesium 400 mg TID (4) Diabetes mellitus, type 2: Hold PO meds Insulin protocol (5) Ovarian cancer: Port in place- does not require a treatment while inpatient (6) Anxiety: Patient will require family member with her due to severe anxiety without. Her will likely stay with her overnight. Scheduled Haldol 1 mg HS and 0.5 mg in AM to prevent the severe sundowning she had on previous visits. DC wo Haldol. Still awaiting placement. (7) DVT prophylaxis: SQ Heparin Q12h Acute Rehab, Await Placement labs checked ROS-No Headache, No Visual Changes, No Nausea, No Vomiting, No Fever, No Chills, No Neck Pain or Stiffness, No Chest Pain, No Palpitations, No SOB, No RICHARDSON, No Cough, No Sputum, No Wheezing, No Abdominal Pain, No Diarrhea, No Hematemesis, No Hemoptysis, No Unexpected Weight Loss, No Flank pain, No Melena, No Hematochezia, No Frequency, No Urgency, No Burning, No Hematuria, No Rashes, No Diaphoresis. Appetite is Normal Physical Exam Gen-AAO x 3, NAD, Afebrile, [place] Head-NCAT, EOMI, PERRLA, Anicteric Sclera, No Posterior Pharyngeal Erythema Neck-Supple, No JVD, No Thyromegaly, No Masses, No LAD, No Bruits Lungs-Clear to Auscultation Bilaterally, No Rales, No Rhonchi, No Wheezing, No Crepitus Chest-No S4, +S1, +S2, No S3, No Murmurs, No Rubs, No Gallops, No Ectopy Abdomen-Soft, Bowel Sounds Present, Non Tender, Non Distended, No Hepatomegaly, No Splenomegaly, No Palpable Masses, No Rebound, No Rigidity, No Guarding Musculoskeletal-Full Range of Motion Bilaterally, No CVAT Extremities-No Cyanosis, No Clubbing, No Edema Nuero-Cranial Nerves II-XII grossly intact, Motor WNL, DTRs WNL, Strength-subtle weakness R Psych-Normal Mood Admission and Anticipated Discharge Date Admission Date: February 11, 2020 Results & Data Results & Data ([facility]) Vital Signs (Past 12 Hours) Vital Signs Temp Pulse Pulse Resp BP BP BP 02/13/20 10:16 82 173/103 H 02/13/20 09:00 90 02/13/20 07:16 35.8 C L 82 16 161/106 H 02/13/20 03:42 36.7 C 70 18 120/75 Pulse Ox 02/13/20 10:16 02/13/20 09:00 02/13/20 07:16 96 02/13/20 03:42 94 (1) Ovarian cancer Laterality: unspecified laterality Qualified Code(s): C56.9 - Malignant neoplasm of unspecified ovary
[2020-02-13] MEDS: MIRTAZAPINE TAB 15 MG TAB PO SCH (21:57)
[2020-02-14] MEDS: CYANOCOBALAMIN 500 MCG TABLET (VITAMIN B-12) PO SCH (08:10)
[2020-02-14] MEDS: PANTOprazole 40 MG TAB PO SCH (08:10)
[2020-02-14] MEDS: HEPARIN SOD 5,000 UNIT/0.5 ML VIAL SQ SCH (08:10)
[2020-02-14] MEDS: CLOPIDOGREL BISULFATE 75 MG TAB PO SCH (08:10)
[2020-02-14] MEDS: INSULIN ASPART 100 UNITS/ML 3 ML PEN SC SCH ×2 (08:10→12:13)
[2020-02-14] MEDS: ASPIRIN 81 MG ECTAB PO SCH (08:10)
[2020-02-14] MEDS: MAGNESIUM OXIDE 400 MG TAB PO SCH ×2 (08:10→14:07)
[2020-02-14] MEDS: INSULIN GLARGINE SOLOSTAR 100 UNITS/ML 3 ML PEN SC SCH (08:11)
[2020-02-14] MEDS: CEROVITE ADV FORMULA TAB PO SCH (08:11)
[2020-02-14] MEDS: ATORVASTATIN 40 MG TAB PO SCH (08:11)
[2020-02-14] MEDS: HALOPERIDOL LACTATE 5 MG/ML 1 ML VIAL IM SCH (08:50)
--- NOTE | 2020-02-14 09:08 | Hospitalist Progress Note ---
Date of Service February 14, 2020 Assessment & Plan (1) Acute CVA (cerebrovascular accident): Patient with acute CVA-1.3 x 0.6 cm acute infarct within the lateral left thalamus. [place] Tele-Stroke was consulted by ED physician. Recommended ASA, Plavix. No TPA-outside of the window. Recommended hydration- started in the ED. CTA of head and neck negative. MRI-1.3 x 0.6 cm acute infarct within the lateral left thalamus. Keep BP<140 (2) Hypertension: Acute CVA Neurology on case, f/u in 8 weeks w/ Dr Lee Echocardiogram Noted PT/OT Fall & aspiration precautions Statin (3) Hypomagnesemia: Chronic hypomag Continue PO Magnesium 400 mg TID (4) Diabetes mellitus, type 2: Current HbA1c 5.9% Hold PO meds Insulin protocol (5) Ovarian cancer: Port in place- does not require a treatment while inpatient (6) Anxiety: Patient will require family member with her due to severe anxiety without. Her will likely stay with her overnight. Scheduled Haldol 1 mg HS and 0.5 mg in AM to prevent the severe sundowning she had on previous visits. DC wo Haldol. Patient is currently calm, answering questions appropriately, at the bedside, reports that patient has been feeling well whole day (7) DVT prophylaxis: SQ Heparin Q12h Acute Rehab, Await Placement Admission and Anticipated Discharge Date Admission Date: February 11, 2020 Subjective Patient is currently lying in bed, in no acute distress. is at the bedside. Patient is eating lunch. She is very hard of hearing, however she denies any fevers, chills, chest pain, shortness of breath, abdominal pain, nausea or vomiting. Review of Systems Review of Systems: All systems reviewed & are unremarkable except as noted in HPI & below Constitutional: no fever and no chills Respiratory: no cough and no dyspnea Cardiovascular: no chest pain and no palpitations Gastrointestinal: no abdominal pain, no nausea and no vomiting Physical Exam Physical Exam: Gen-AAO x 3, NAD Head-NCAT, EOMI, PERRL, Anicteric Sclera, No Posterior Pharyngeal Erythema Neck-Supple, No JVD, No Thyromegaly, No Masses, No LAD, No Bruits Lungs-Clear to Auscultation Bilaterally, No Rales, No Rhonchi, No Wheezing, No Crepitus Chest-No S4, +S1, +S2, No S3, No Murmurs, No Rubs, No Gallops, No Ectopy Abdomen-Soft, Bowel Sounds Present, Non Tender, Non Distended, No Rigidity, No Guarding Musculoskeletal-moves all 4 extremities spontaneously, there is subtle weakness on the right side, right upper and right lower extremity Extremities-No Cyanosis, No Clubbing, No Edema Nuero- alert and oriented and answers questions appropriately, very hard of hearing, speech fluent (per previously slurred), no facial asymmetry noted, strength-subtle weakness R Psych-Normal Mood Results & Data Results & Data ([facility]) Vital Signs (Past 12 Hours) Vital Signs Temp Pulse Pulse Resp BP BP Pulse Ox 02/14/20 08:43 69 02/14/20 07:17 36.4 C L 79 18 159/100 H 98 02/14/20 01:14 76 02/13/20 22:44 37.0 C 78 16 165/93 H 96 Medications Administered Current Inpatient Medications Acetaminophen (Acetaminophen 325 Mg Tab) 650 mg PO Q4H PRN PRN Reason: Pain or Fever Stop: 03/12/20 15:51 Aspirin (Aspirin 81 Mg Ectab) 81 mg PO [facility] Stop: 03/13/20 08:59 Last Admin: 02/14/20 08:10 Dose: 81 mg Documented by: Atorvastatin Calcium (Atorvastatin 40 Mg Tab) 40 mg PO [facility] Stop: 03/13/20 08:59 Last Admin: 02/14/20 08:11 Dose: 40 mg Documented by: Clopidogrel Bisulfate (Clopidogrel Bisulfate 75 Mg Tab) 75 mg PO [facility] Stop: 03/13/20 08:59 Last Admin: 02/14/20 08:10 Dose: 75 mg Documented by: Cyanocobalamin (Cyanocobalamin 500 Mcg Tablet (Vitamin B-12)) 1,000 mcg PO [facility] Stop: 03/13/20 08:59 Last Admin: 02/14/20 08:10 Dose: 1,000 mcg Documented by: Dextrose (Dextrose 50% 50 Ml Syringe) 25 - 50 ml IV UD PRN; Protocol PRN Reason: Hypoglycemia Protocol Stop: 03/12/20 15:51 Glucagon (Glucagon For Inj 1 Mg Vial) 1 mg SQ UD PRN; Protocol PRN Reason: Hypoglycemia Protocol Stop: 03/12/20 15:51 Glucose (Glucose 10 Tabs/Tube) 4 - 8 tabs PO UD PRN; Protocol PRN Reason: Hypoglycemia Protocol Stop: 03/12/20 15:51 Glucose (Glucose 40% Gel 15 Gm Tube) 15 - 30 gm PO UD PRN; Protocol PRN Reason: Hypoglycemia Protocol Stop: 03/12/20 15:51 Haloperidol Lactate (Haloperidol Lactate 5 Mg/Ml 1 Ml Vial) 0.5 mg IM QAM NIKA Stop: 03/14/20 08:59 Last Admin: 02/14/20 08:50 Dose: Not Given Documented by: Haloperidol Lactate (Haloperidol Lactate 5 Mg/Ml 1 Ml Vial) 1 mg IM HS [facility] Stop: 03/13/20 20:59 Last Admin: 02/13/20 21:51 Dose: 1 mg Documented by: Heparin Sodium (Porcine) (Heparin Sod 5,000 Unit/0.5 Ml Vial) 5,000 units SQ Q12 NIKA Stop: 03/12/20 20:59 Last Admin: 02/14/20 08:10 Dose: 5,000 units Documented by: Insulin Aspart (Insulin Aspart 100 Units/Ml 3 Ml Pen) 0 units SC ACHS NIKA Stop: 03/13/20 11:44 Last Admin: 02/14/20 12:13 Dose: 3 units Documented by: Insulin Glargine (Insulin Glargine Solostar 100 Units/Ml 3 Ml Pen) 6 units SC BID NIKA Stop: 03/12/20 20:59 Last Admin: 02/14/20 08:11 Dose: 6 units Documented by: Labetalol HCl (Labetalol Hcl Iv 5 Mg/Ml 20ml) 10 mg IV Q6H PRN PRN Reason: Hypertension Stop: 03/12/20 15:51 Last Admin: 02/12/20 22:12 Dose: 10 mg Documented by: Magnesium Oxide (Magnesium Oxide 400 Mg Tab) 400 mg PO TID NIKA Stop: 03/12/20 20:59 Last Admin: 02/14/20 08:10 Dose: 400 mg Documented by: Mirtazapine (Mirtazapine Tab 15 Mg Tab) 7.5 mg PO HS NIKA Stop: 03/13/20 20:59 Last Admin: 02/13/20 21:57 Dose: 7.5 mg Documented by: Miscellaneous (Carbohydrates For Hypoglycemia ) 15 - 30 gm PO UD PRN PRN Reason: Hypoglycemia Protocol Stop: 03/12/20 15:51 Miscellaneous Information (Pharmacist Discharge Med Rec Consult) 1 ea N/A UD PRN PRN Reason: Consult Stop: 03/12/20 15:51 Multivitamins/Minerals (Cerovite Adv Formula Tab) 1 tab PO QAM [facility] Stop: 03/13/20 08:59 Last Admin: 02/14/20 08:11 Dose: 1 tab Documented by: Pantoprazole Sodium (Pantoprazole 40 Mg Tab) 40 mg PO DAILY [facility] Stop: 03/13/20 08:59 Last Admin: 02/14/20 08:10 Dose: 40 mg Documented by: (1) Ovarian cancer Laterality: unspecified laterality Qualified Code(s): C56.9 - Malignant neoplasm of unspecified ovary
[2020-02-14] MEDS ORDERED: STROKE PATIENT DISCHARGE STA (14:11)
--- NOTE | 2020-02-14 14:16 | Discharge Summary ---
Date of Service February 14, 2020 Admission HPI Per Admitting Provider Patient is an 79 yo female who presented to the ED for concern of stroke- like symptoms. She noted that her symptoms started last night with weakness of her right arm and leg along with slurred speech. Her symptoms worsened this morning to the point that she couldn't walk. EMS was called. Upon presentation to the ED, a stroke-alert was called by the ED physician. She was taken emergently for CT of the head and neck which were unrevealing. [place] Tele-stroke was contacted by the ED and patient was noted to NOT be a candidate for TPA due to the timeframe. Dr. Barragan ([place] tele-stroke physician) recommended ASA and Plavix and stroke workup inpatient. He felt that the patient likely has a small vessel CVA not seen on CTA. The patient was given MI ASA in the ED pending speech evaluation. Plavix was not give pending speech evaluation. Otherwise, patient has notable hypomagnesemia which she has chronically and takes PO Magnesium 400 mg TID. She does note that her weakness in the RUE and RLE continues. She continues to have problems swallowing and talking. She has no pain currently. She has been urinating frequently. She is a diabetic and typically takes Metformin and Glimepiride. BP has been elevated in the ED- allowing for permissive HTN at this time. 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 She has a port in place and has been receiving treatments. Admission Exam Per Admitting Provider Physical Exam: See Dr. Lares's addendum for more detailed exam findings. Constitutional: well developed, well nourished and + physical limitations (due to right sided weakness.); no altered mental status Eyes: PERRL, conjunctivae normal, anicteric sclerae ENMT: Ears: no hearing impairment Neck: trachea midline, no thyromegaly Respiratory: normal respiratory effort; no respiratory distress, no labored breathing and no cough Cardiovascular: Rate/Rhythm: regular rate and regular rhythm Skin: no rashes, warm and dry Neurologic: Speech / Cognition: + abnormal speech (slurred) Slight facial droop Principal Diagnosis (1) Acute CVA (cerebrovascular accident): (2) Hypertension: (3) Hypomagnesemia: (4) Diabetes mellitus, type 2: (5) Ovarian cancer: (6) Anxiety Discharge Exam Gen-elderly female, sitting up in bed, AAO x 3, in NAD Head-NCAT, EOMI, PERRL, Anicteric Sclera, No Posterior Pharyngeal Erythema Neck-Supple, No JVD, No Thyromegaly, No Masses, No LAD, No Bruits Lungs-Clear to Auscultation Bilaterally, No Rales, No Rhonchi, No Wheezing, No Crepitus Chest-No S4, +S1, +S2, No S3, No Murmurs, No Rubs, No Gallops, No Ectopy Abdomen-Soft, Bowel Sounds Present, Non Tender, Non Distended, No Rigidity, No Guarding Musculoskeletal-moves all 4 extremities spontaneously, there is subtle weakness on the right side, right upper and right lower extremity Extremities-No Cyanosis, No Clubbing, No Edema Nuero- alert and oriented and answers questions appropriately, very hard of hearing, speech fluent (per previously slurred), no facial asymmetry noted, strength-subtle weakness R Psych-Normal Mood Discharge Data Allergies Allergy/AdvReac Type Severity Reaction Status Date / Time codeine Allergy Mild Unknown Verified 02/11/20 13:55 Penicillins Allergy Mild UNSURE OF Verified 02/11/20 13:55 REACTION Consultations 02/11/20 13:20 ED Decision to Admit Stat 02/11/20 15:52 Consult Case Management - Discharge Planning Routine Consult Neurology Routine Ordered Studies 02/11/20 12:02 CT angio head wo/w Stat IMPRESSION: 1. No acute intracranial findings. 2. Unremarkable CTA of the head. No central vessel occlusion. CT angio neck with con Stat IMPRESSION: Unremarkable CTA of the neck. No dissection. No stenosis. 02/11/20 15:52 MR brain wo/w con Routine IMPRESSION: 1. 1.3 x 0.6 cm acute infarct within the lateral left thalamus. No mass effect or hemorrhage. 2. Moderate atrophy and small vessel disease. Echo 02/12/20 Compared with echo in October, moderate pulmonary hypertension now apparent, otherwise no significant change. Study was technically limited, LV is grossly normal size. LV systolic function is normal. EF 55 to 60%. LV wall motion is normal. There is normal LV wall thickness. Grade 1 diastolic dysfunction. Right ventricular systolic pressure is elevated at 40 to 50 mmHg. The interatrial septum is intact with no evidence for an ASD. Hospital Course (1) Acute CVA (cerebrovascular accident): Patient with acute CVA-1.3 x 0.6 cm acute infarct within the lateral left thalamus. [place] Tele-Stroke was consulted by ED physician. Recommended ASA, Plavix. No TPA-outside of the window. Recommended hydration- started in the ED. CTA of head and neck negative. MRI-1.3 x 0.6 cm acute infarct within the lateral left thalamus. Keep SBP<140 Started atorvastatin Follow-up with neurology, Dr. Lee, in 8 weeks (2) Hypertension: Acute CVA Neurology on case, follow up in 8 weeks w/ Dr Lee Echocardiogram Noted - no ASD, EF 55 to 60% PT/OT Fall & aspiration precautions Statin (3) Hypomagnesemia: Chronic hypomag Continue PO Magnesium 400 mg TID while inpt Recommend to check magnesium level within 1 week (4) Diabetes mellitus, type 2: Current HbA1c 5.9% Hold PO meds Insulin protocol while inpt (5) Ovarian cancer: Port in place - does not require a treatment while inpatient (6) Anxiety: Patient will required family member with her due to severe anxiety without. Scheduled Haldol 1 mg HS and 0.5 mg in AM to prevent the severe sundowning she had on previous visits. DC wo Haldol. Patient is currently calm, answering questions appropriately, at the bedside, reports that patient has been feeling well whole day (7) DVT prophylaxis: SQ Heparin Q12h Dispo: Acute Rehab Total Time Total Time Spent Total Time Spent (In Minutes): 40 Total Time Includes: Examination of the Patient, Discharge Planning, Medication Reconciliation and Communication With Other Providers Discharge Plan Discharge Items Patient Disposition: Transfer Inpatient Rehab Fac Reason For Visit: STROKE Discharge Diagnosis: (1) Acute CVA (cerebrovascular accident): (2) Hypertension: (3) Hypomagnesemia: (4) Diabetes mellitus, type 2: (5) Ovarian cancer: (6) Anxiety: Health Concerns: Sundowning Activity: Resume your previous activity Lifting: None Bathing: No limitations Exercise/Sports: None Driving/Machine Use: none Weightbearing: Full weightbearing Non-emergency contact: Primary Care Provider and Neurologist Call non-emergency contact if: you have any medication questions Follow-up/Referrals: Juliano Miles MD [Primary Care Provider] - [place],Grant B., DO [Physician] - (8 weeks) Diet: Carb Consistent or DM2 and Heart Healthy Add Attending Provider Instructions: Frequent assurance and orientation, family to be nearby as much as possible. New medications started, Plavix and atorvastatin. You will need to continue aspirin and Plavix for next 21 days. Continue atorvastatin indefinitely. You will need to see neurologist in 8 weeks for follow-up appointment (Dr. Lee). Follow-up with primary care doctor within 1 week. You required magnesium supplement while in the hospital, recommend to have your magnesium level checked within 1 week. Addtl Metal Pourer Provider Instructions: . Who to Call and When: Medical Emergencies: Call 911 immediately if you experience any of the following warning signs and symptoms of Stroke: * Sudden numbness or weakness of the face, arm or leg, especially on one side of the body * Sudden confusion, trouble speaking or understanding * Sudden trouble seeing in one or both eyes * Sudden trouble walking, dizziness, loss of balance or coordination * Sudden severe headache with no cause Do not delay calling 911 if you experience any warning signs or symptoms of a stroke. Delay in seeking medical attention may affect what treatments can be given to you. . Risk Factors for Stroke: You can reduce your chances of stroke by working with your medical provider to adopt a healthy lifestyle. Some specific ways to lower your chance of stroke are: * If you are a smoker, now is the time to stop smoking cigarettes * If you are diabetic, improve the control of your blood sugars * Avoid excessive amounts of alcohol * Control high blood pressure * Lose weight if you are overweight * Be sure to lead an active lifestyle * Eat a healthy diet low in salt, cholesterol and fat You should know about other risk factors for stroke that you are unable to control. These include: * Age 55 years or older * Male gender * Certain racial groups: , or / * Family History of Stroke, Mini stroke or Heart Attack * Sickle Cell Disease Follow Up: It is important for you to keep your follow up appointments with your medical provider. . Pending Studies at Discharge: No Stand-Alone Forms: My [facility] Skilled Items Patient informed of condition?: Yes DNR: No Discharge Level of Care: Acute rehab Communicable Disease: No Discharge Prognosis: Improving Lines: None Urinary Catheter: No Medications and DC Order Prescriptions: New clopidogrel 75 mg Tablet 75 mg PO QAM Qty: 30 RF: 0 atorvastatin 40 mg Tablet 40 mg PO QAM Qty: 30 RF: 0 mirtazapine 15 mg Tablet 7.5 mg PO HS Qty: 30 RF: 0 Continued cyanocobalamin (vitamin B-12) [Vitamin B-12] 1,000 mcg Tablet 1,000 mcg PO QAM RF: 0 glimepiride 1 mg Tablet 1 mg PO UD RF: 0 multivitamin Capsule 1 cap PO QAM RF: 0 metoprolol succinate 25 mg Tablet Extended Release 24 Hr 25 mg PO DAILY RF: 0 acetaminophen [Tylenol 8 Hour] 650 mg tablet extended release 650 mg PO Q8H PRN (Reason: Fever Or Pain) RF: 0 aspirin 81 mg Tablet,Delayed Release (Dr/Ec) 81 mg PO QAM Qty: 30 RF: 0 metformin 500 mg tablet 500 mg PO BID RF: 0 ondansetron HCl 8 mg tablet 8 mg PO Q8H PRN (Reason: Nausea) RF: 0 omeprazole 20 mg capsule,delayed release(DR/EC) 20 mg PO DAILY RF: 0 magnesium 200 mg Tablet 400 mg PO TID RF: 0 lisinopril 2.5 mg tablet 2.5 mg PO DAILY RF: 0 Discharge Orders: Discharge Order (Routine); Ordered 02/14/20 Ordered By: Mitchell Sousa Admission Data Admit Date/Time: 02/11/20 14:08 Attending Provider: Mitchell Sousa Admit Provider: Sriram Lares Primary Care Provider: Juliano Miles Other Providers: [facility] ; Sriram Lares ; Grant Lee
== END 2020-02-14 16:22 | DRG 65 ==
LOC: ED 11:33 → 2S 14:08 → SUATTDRO 14:08 → 2S 15:28 → 2N 02-12 09:04

== ENCOUNTER 2020-06-07 10:43 | Inpatient (IN) ==
--- NOTE | 2020-06-07 10:56 | Emergency Department Note ---
Impression & Plan Acute upper gastrointestinal bleeding, Nausea & vomiting, Ovarian cancer, Hypomagnesemia ED Provider Note NAME: SHI REILLY AGE: 79 SEX: F : 1940 ARRIVES VIA: Walk-In INFORMANT: Patient, ED PROVIDER(S): Cali Hernandez MD Chief Complaint: Vomiting, abdominal pain HPI: Patient was seen here yesterday for similar symptoms. The patient had a normal white count hemoglobin of 12 and platelet count was 436. The patient's kidney function was unremarkable with elevated blood glucose at 227. Patient's LFTs were unremarkable with a negative troponin. Patient's urinalysis did show the possibility of infection although the patient did have numerous epithelial cells. Patient also did have a CT of the chest abdomen and pelvis. Patient does have intrathoracic metastatic disease consistent with progressive peritoneal carcinomatosis large volume abdominopelvic ascites small right and trace left pleural effusions with a large hiatal hernia but no evidence of any bowel obstruction. Patient states that they went home this evening but she had persistent vomiting throughout the night with associated coffee-ground emesis. Patient does not take any blood thinning medications but does take aspirin and Plavix.. The patient has not received any chemo radiation or surgical therapy for her history of ovarian cancer but the patient Ca1 25 has increased per the and thus they are seeking treatment with Dr. Nicholson with her primary oncologist. The patient had been trying some Tylenol which mildly improved her pain which she describes in the upper abdomen nonradiating with associated nausea and vomiting. No alcohol or tobacco use. They deny any infectious symptoms including cough fevers chills chest pains or shortness of breath. No known Covid contacts. ROS: See HPI for pertinent positives and negatives. A total of 10 systems were reviewed and otherwise negative. Past medical history: See below Surgical history: See below Social history: See below Physical Exam: GENERAL: Thin in appearance, wearing glasses, vomiting. EYE EXAM: Normal conjunctiva. PERRL, no anisocoria and EOM's grossly intact w/o pain. NECK: Supple, no nuchal rigidity, no adenopathy, non-tender. No signs of meningismus. LUNGS: Clear to auscultation. Normal chest wall mechanics. HEART: NSR, no MRG. ABDOMEN: Abdomen soft, mild upper abdominal discomfort without peritonitis, normo-active bowel sounds, no masses, no rebound or guarding. BACK: No CVA TTP. SKIN: No rashes and no bruising. UPPER EXTREMITIES: Upper extremities are grossly normal. LOWER EXTREMITIES: Grossly normal, no edema. NEURO EXAM: A&O x3, cranial nerves II-XII grossly intact, normal speech, moves all 4 extremities on command w/o issue. Differential diagnoses: Appendicitis, ovarian cyst, ovarian torsion, ectopic , TOA, PID, infections, diverticulitis, UTI, obstruction, mesenteric ischemia, aortic pathology, inflammatory bowel disease, renal colic, PUD, pancreatitis, biliary pathology, hernia, volvulus, constipation, as well as other pathologies. Course: Patient was seen and evaluated the bedside. Full history physical exam was performed. EKG: Indication: Vomiting Sinus tachycardia, rate of 102, normal intervals, normal axis, no ST changes or T WI. No significant change from comparison EKG June 06, 2020. Imaging Studies: None Cardiac monitoring: An order was placed for continuous cardiac monitoring. The monitor shows a rate of 98 with sinus rhythm. MDM: Patient was seen due to concern for her vomiting. Blood work was obtained along with a type and screen. The patient was started on antiemetics, IV fluids, 2 large-bore IVs were ordered for placement and the patient was ordered a PPI bolus and drip. Patient does have white, 16 with a hemoglobin 11.4. Slightly changed from before but close to normal. Platelet count is borderline elevated. Patient's kidney function is unremarkable. Magnesium and sodium slightly low. The patient did receive IV fluids. Procalcitonin is not elevated. Rapid Covid negative. I did reevaluate the patient the patient was feeling improved. Given the patient's recent imaging do not believe she needs a repeat at this time as her vomiting is now controlled and the patient does have a soft abdomen. I did speak with the on-call hospitalist and spoke with Ramona Junior PA-C and the patient will be admitted under Dr. Negro. 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 S/P debulking surgery on 03/05/2014 Peritoneal carcinomatosis SVT (supraventricular tachycardia) Surgical History (Updated 06/07/20 @ 14:06 by Ramona Junior PA-C) History of breast implant History of colon resection History of esophagogastroduodenoscopy (EGD) History of exploratory laparotomy She had total abdominal hysterectomy, bilateral salpingo-oophorectomy, left colectomy, side to side functional end to end reanastomosis, removal of sigmoid nodule, right uterosacral nodule, splenic flexure nodule, omentectomy on 03/05/14. History of mastectomy History of tonsillectomy Hx of colonoscopy Hx of eye surgery UNSURE SOMETHING TO DO WITH RETINA Hx of hysterectomy BSO Family History (Updated 06/07/20 @ 14:06 by Ramona Junior PA-C) Mother Myocardial infarction Sister Breast cancer Social History Smoking Status: Never smoker Second Hand Exposure: No; Hx Alcohol Use: Yes Alcohol type: wine Hx Substance Use: No Preferred Language: French Communication Ability: Effective Cleaning Validation Consultant Required: No Beliefs That Will Affect Care: Spiritual marital status: Current Living Situation: Spouse Feels Safe at Home: Yes Assistive Devices: Walker Allergies Allergies Allergy/AdvReac Type Severity Reaction Status Date / Time codeine Allergy Mild Unknown Verified 06/07/20 13:04 Penicillins Allergy Mild UNSURE OF Verified 06/07/20 13:04 REACTION Home Meds Home Medications Medication Instructions Recorded Confirmed cyanocobalamin (vitamin B-12) 1,000 mcg PO QAM 04/25/19 06/07/20 [Vitamin B-12] metoprolol succinate 50 mg PO QAM 08/09/19 06/07/20 lisinopril 2.5 mg PO QAM 11/14/19 06/07/20 magnesium 400 mg PO TID 02/11/20 06/07/20 metformin 500 mg PO BID 02/11/20 06/07/20 omeprazole 20 mg PO BID 02/11/20 06/07/20 ondansetron HCl 8 mg PO Q8H PRN 02/11/20 06/07/20 multivitamin 1 tab PO QAM 06/06/20 06/07/20 Previous Rx's Medication Instructions Recorded aspirin 81 mg PO QAM #30 tab 08/19/19 atorvastatin 40 mg PO QAM #30 tab 02/13/20 mirtazapine 7.5 mg PO HS #30 tab 02/13/20 Results & Data (ED) Vital Signs Vital Signs - 24 hr 06/07/20 10:48 06/07/20 11:26 06/07/20 12:30 Temperature 36.8 C Temperature Source Oral Pulse Rate 98 H 96 H Pulse Rate from SpO2 Sensor 97 H Pulse Rhythm Regular Pulse Strength Normal Respiratory Rate 18 22 Respiratory Effort / Characteristics Non-Labored Spontaneous Respiratory Depth Normal Respiratory Pattern Regular Blood Pressure 195/114 H 194/107 H Blood Pressure Mean 141 160 Blood Pressure Position Sitting Pulse Oximetry 94 98 96 Oxygen Delivery Method Room Air Room Air Sepsis Recent Fever Within 48 Hours No Sepsis New/Unexplained Change in Mental Status No Sepsis Action Taken by Nursing No Action Required 06/07/20 12:44 06/07/20 12:50 Temperature Temperature Source Pulse Rate 98 H 98 H Pulse Rate from SpO2 Sensor 96 H 86 Pulse Rhythm Pulse Strength Respiratory Rate 24 24 Respiratory Effort / Characteristics Respiratory Depth Respiratory Pattern Blood Pressure Blood Pressure Mean Blood Pressure Position Pulse Oximetry 100 98 Oxygen Delivery Method Sepsis Recent Fever Within 48 Hours Sepsis New/Unexplained Change in Mental Status Sepsis Action Taken by [facility] Medications Current Medication List: was personally reviewed by me Laboratory Data Attestation: I reviewed the patient's lab results. Result diagrams: 06/07/20 11:22 06/07/20 11:22 Lab Results 06/07/20 06/07/20 06/07/20 Range/Units 11:22 11:22 11:22 WBC 16.89 H (4.8-10.8) K/uL RBC 3.95 L (4.2-5.4) M/uL Hgb 11.4 L (12.0-16.0) g/dL Hct 34.1 L (37-47) % MCV 86.3 (80-100) fL MCH 28.9 (25-34) pg MCHC 33.4 (32-36) g/dL RDW Std Deviation 41.6 (36.4-46.3) fL RDW Coeff of Ninoska 13.0 (11.5-14.5) % Plt Count 411 H (130-400) K/uL MPV 9.1 (7.4-10.4) fL Immature Gran % (Auto) 0.2 % Neut % (Auto) 90.1 % Lymph % (Auto) 5.2 % Caldwell % (Auto) 4.4 % Eos % (Auto) 0.0 % Baso % (Auto) 0.1 % Neut # (Auto) 15.22 H (1.4-6.5) K/uL Lymph # (Auto) 0.88 L (1.2-3.4) K/uL Caldwell # (Auto) 0.74 H (0.11-0.59) K/uL Eos # (Auto) 0.00 (0-0.5) K/uL Baso # (Auto) 0.01 (0-0.2) K/uL Immature Gran # (Auto) 0.04 H (0.00-0.02) K/uL PT 11.1 (9.0-12.0) Seconds INR 1.1 (0.9-1.1) APTT 23.8 (21.0-31.0) Seconds PTT Ratio 0.9 Sodium (136-145) mmol/L Potassium (3.5-5.1) mmol/L Chloride (98-107) mmol/L Carbon Dioxide (21-32) mmol/L Anion Gap (3-11) BUN (7-18) mg/dl Creatinine (0.6-1.2) mg/dl Est Cr Clr Drug Dosing ml/min Est GFR ( Amer) Est GFR (Non-Af Amer) BUN/Creatinine Ratio (10-20) Glucose (70-99) mg/dl Calcium (8.5-10.1) mg/dl Magnesium (1.8-2.4) mg/dl Total Bilirubin (0.2-1) mg/dl AST (15-37) U/L ALT (12-78) U/L Alkaline Phosphatase (45-117) U/L Total Protein (6.4-8.2) gm/dl Albumin (3.4-5.0) gm/dl Globulin (2.5-4.0) gm/dl Albumin/Globulin Ratio (0.9-2) Procalcitonin (0-0.5) ng/ml Blood Type A Positive Antibody Screen NEGATIVE 06/07/20 06/07/20 06/07/20 Range/Units 11:22 11:22 11:26 WBC (4.8-10.8) K/uL RBC (4.2-5.4) M/uL Hgb (12.0-16.0) g/dL Hct (37-47) % MCV (80-100) fL MCH (25-34) pg MCHC (32-36) g/dL RDW Std Deviation (36.4-46.3) fL RDW Coeff of Ninoska (11.5-14.5) % Plt Count (130-400) K/uL MPV (7.4-10.4) fL Immature Gran % (Auto) % Neut % (Auto) % Lymph % (Auto) % Caldwell % (Auto) % Eos % (Auto) % Baso % (Auto) % Neut # (Auto) (1.4-6.5) K/uL Lymph # (Auto) (1.2-3.4) K/uL Caldwell # (Auto) (0.11-0.59) K/uL Eos # (Auto) (0-0.5) K/uL Baso # (Auto) (0-0.2) K/uL Immature Gran # (Auto) (0.00-0.02) K/uL PT (9.0-12.0) Seconds INR (0.9-1.1) APTT (21.0-31.0) Seconds PTT Ratio Sodium 134 L (136-145) mmol/L Potassium 3.6 D (3.5-5.1) mmol/L Chloride 97 L (98-107) mmol/L Carbon Dioxide 28 (21-32) mmol/L Anion Gap 9.0 (3-11) BUN 17 (7-18) mg/dl Creatinine 0.96 (0.6-1.2) mg/dl Est Cr Clr Drug Dosing 37.0 ml/min Est GFR ( Amer) 64.7 Est GFR (Non-Af Amer) 55.9 BUN/Creatinine Ratio 18.2 (10-20) Glucose 288 H (70-99) mg/dl Calcium 9.1 (8.5-10.1) mg/dl Magnesium 1.4 L (1.8-2.4) mg/dl Total Bilirubin 0.6 (0.2-1) mg/dl AST 22 (15-37) U/L ALT 18 (12-78) U/L Alkaline Phosphatase 105 (45-117) U/L Total Protein 7.2 (6.4-8.2) gm/dl Albumin 3.5 (3.4-5.0) gm/dl Globulin 3.7 (2.5-4.0) gm/dl Albumin/Globulin Ratio 0.9 (0.9-2) Procalcitonin 0.06 (0-0.5) ng/ml Blood Type Antibody Screen Administered Medications Pantoprazole Sodium 40 mg/ (Dextrose) 100 mls @ 20 mls/hr IV Q5H NIKA Stop: 06/07/20 16:14 Last Admin: 06/07/20 12:07 Dose: 8 mg/hr, 20 mls/hr Documented by: [id number] Discontinued Medications Hydralazine HCl (Hydralazine Hcl 20 Mg/Ml Vial) 10 mg IV NOW STA Stop: 06/07/20 13:34 Last Admin: 06/07/20 14:31 Dose: 10 mg Documented by: [id number] Hydralazine HCl (Hydralazine Hcl 20 Mg/Ml Vial) Confirm Administered Dose 20 mg .ROUTE .STK-MED ONE Stop: 06/07/20 14:22 Last Admin: 06/07/20 14:33 Dose: Not Given Documented by: [id number] Sodium Chloride (Nss 1000ml) 1,000 mls @ 999 mls/hr IV .Q1H1M NIKA Stop: 06/07/20 12:15 Last Infusion: 06/07/20 14:07 Dose: 0 mls/hr Documented by: [id number] Admin: 06/07/20 11:37 Dose: 999 mls/hr Documented by: [id number] Pantoprazole Sodium 80 mg/ (Dextrose) 100 mls @ 400 mls/hr IV NOW ONE Stop: 06/07/20 11:23 Last Infusion: 06/07/20 11:52 Dose: 0 mls/hr Documented by: [id number] Admin: 06/07/20 11:37 Dose: 400 mls/hr Documented by: [id number] Metoprolol Tartrate (Metoprolol Tartrate 1 Mg/Ml Vial) 5 mg IV NOW STA Stop: 06/07/20 13:38 Last Admin: 06/07/20 14:31 Dose: 5 mg Documented by: [id number] Metoprolol Tartrate (Metoprolol Tartrate 1 Mg/Ml Vial) Confirm Administered Dose 5 mg IV .STK-MED ONE Stop: 06/07/20 14:22 Last Admin: 06/07/20 14:33 Dose: Not Given Documented by: [id number] Ondansetron HCl (Ondansetron Inj 2 Mg/Ml 2 Ml Vial) 4 mg IV ONE STA Stop: 06/07/20 11:10 Last Admin: 06/07/20 11:35 Dose: 4 mg Documented by: [id number] Discharge Plan Visit Data Chief Complaint: GI Bleed Stated Complaint: internally bleeding ED Provider: Cali Hernandez Discharge Problem: Acute upper gastrointestinal bleeding, Nausea & vomiting, Ovarian cancer, Hypomagnesemia Discharge Instructions Interventions: ED Discharge Assessment Last Done: 06/07/20 14:47 Discharge Problem: Nausea & vomiting Qualifiers: Vomiting type: unspecified Vomiting Intractability: non-intractable Qualified Code(s): R11.2 - Nausea with vomiting, unspecified Ovarian cancer Qualifiers: Laterality: unspecified laterality Qualified Code(s): C56.9 - Malignant neoplasm of unspecified ovary
[2020-06-07] MEDS ORDERED: PANTOprazole 80 MG in DEXTROSE 5% 100 ML IV ONE (11:09)
[2020-06-07] MEDS ORDERED: ONDANSETRON INJ 2 MG/ML 2 ML VIAL IV STA (11:09)
[2020-06-07] MEDS ORDERED: SODIUM CHLORIDE 0.9% 1000ML 1,000 ML IV SCH (11:15)
[2020-06-07] MEDS ORDERED: PANTOprazole 40 MG in DEXTROSE 5% 100 ML IV SCH (11:15)
[2020-06-07 11:36] LABS: Basophils # (auto) 0.01 K/uL (0-0.2); Basophils % (auto) 0.1 %; Hematocrit (blood only) 34.1 % (37-47); Hemoglobin 11.4 g/dL (12.0-16.0); Immature Granulocytes # (auto) 0.04 K/uL (0.00-0.02); Immature Granulocytes % (auto) 0.2 %; Lymphocytes # (auto) 0.88 K/uL (1.2-3.4); Lymphocytes % (auto) 5.2 %; Mean Corpuscular Hemoglobin 28.9 pg (25-34); Mean Corpuscular Hgb Conc 33.4 g/dL (32-36); Mean Corpuscular Volume 86.3 fL (80-100); Mean Platelet Volume 9.1 fL (7.4-10.4); Monocytes # (auto) 0.74 K/uL (0.11-0.59); Monocytes % (auto) 4.4 %; Neutrophils # (auto) 15.22 K/uL (1.4-6.5); Neutrophils % (auto) 90.1 %; Platelet Count 411 K/uL (130-400); RDW Standard Deviation 41.6 fL (36.4-46.3); Red Blood Count 3.95 M/uL (4.2-5.4); White Blood Count 16.89 K/uL (4.8-10.8)
[2020-06-07 11:49] LABS: INR 1.1 (0.9-1.1); Partial Thromboplastin Ratio 0.9; Partial Thromboplastin Time 23.8 Seconds (21.0-31.0); Prothrombin Time 11.1 Seconds (9.0-12.0)
[2020-06-07 12:06] LABS: Albumin Globulin Ratio 0.9 (0.9-2); Albumin Level 3.5 gm/dl (3.4-5.0); BUN Creatinine Ratio 18.2 (10-20); Bilirubin,Total 0.6 mg/dl (0.2-1); Calcium 9.1 mg/dl (8.5-10.1); Est GFR (African American) 64.7; Est GFR (Non-African American) 55.9; Globulin 3.7 gm/dl (2.5-4.0); Potassium 3.6 mmol/L (3.5-5.1); Total Protein 7.2 gm/dl (6.4-8.2)
[2020-06-07] MEDS ORDERED: hydrALAZINE HCL 20 MG/ML VIAL IV STA (13:33)
[2020-06-07] MEDS ORDERED: METOPROLOL TARTRATE 1 MG/ML VIAL IV STA (13:37)
--- NOTE | 2020-06-07 13:41 | Gastrointestinal Consultation ---
Date of Consultation June 07, 2020 Assessment & Plan (1) Abdominal pain with vomiting: Nausea likely caused by the cancer. Pain may be related to vomiting or the hiatal hernia. Favor conservative management - hydrating the pt, tx UTI if present and watching. Present on Admission?: Yes (2) Coffee ground emesis: Likely gastritis/ esophagitis caused by several episodes of vomiting. No significant drop in Hb/Hct and BUN is normal arguing against a hemodynamically significant UGI bleed. BID IV PPI Clear liquids po. Advance as tolerated. Would defer endoscopy for now. IV fluids Antiemetics Will watch and will reconsider EGD if hematemesis and significant drop in Hb/Hct, melena and/or elevation of BUN. Present on Admission?: Yes Supervising Physician Co-Signing Physician Notes I performed a history and physical examination of the patient today, including specifically on physical exam - soft abdomen. I have discussed the patient's management with the advanced practitioner. Please refer to the nurse practitioner's note for the documented findings and plan of care. Coffee ground emesis with stable H/H, normal BUN, has metastatic ovarian Ca. Recommend: PPI Monitor H/H. Family declined EGD for now and keen for palliative. Recall GI if needed. History of Present Illness Reason for Consultation: coffee grounds emesis Requesting Physician: Ramona Govea PA-C [facility]ending [facility] History of Present Illness Ms. Lorraine Gonzalez is an 79 yr old female pt of Dr. Fuller with a hx of recurrent ovarian cancer, with recent scans with disease progression, most recent chemo in Jun 2019. Regarding her hx of cancer, originally dx'ed with T3c, N1, M1 (left colon involvement) ovarian adenocarcinoma in 2013 at which time she underwent total abdominal hysterectomy, bilateral salpingo-oophorectomy, left colectomy, side to side functional end to end reanastomosis, removal of sigmoid nodule, right uterosacral nodule, splenic flexure nodule, omentectomy; followed by chemo. also hx of CVA. She was brought to the ED for persistent abd pain, nausea and vomiting. Symptoms began soon after undergoing CT abd/pelvis with IV and oral contrast on 06/05 that showed peritoneal disease progression, and suggestion of new cirrhosis and ascites. After going home, she didn't feel well but no specific symptoms, then the next day (yesterday), she had moderately severe epigastric pain and vomited twice which is not unusually but last night, she was awake with epigastric pain and hourly vomiting and there was coffee grounds appearing material in the emesis yesterday and today. Her most recent BM this morning, diarrhea. She has been passing about 2 BMs/day at baseline soft/loose but has been more diarrhea recently. No blood in BMs or black BMs. She has not had fever. On arrival, Hb is at her baseline: 11.4 and BUN is normal at 17. She has leukocyotsis and bacteria in her urine. Allergies Allergy/AdvReac Type Severity Reaction Status Date / Time codeine Allergy Mild Unknown Verified 06/07/20 13:04 Penicillins Allergy Mild UNSURE OF Verified 06/07/20 13:04 REACTION Home Medications Medication Instructions Recorded Confirmed Type cyanocobalamin (vitamin B-12) 1,000 mcg PO QAM 04/25/19 06/07/20 History [Vitamin B-12] metoprolol succinate 50 mg PO QAM 08/09/19 06/07/20 History aspirin 81 mg PO QAM #30 tab 08/19/19 06/07/20 Rx lisinopril 2.5 mg PO QAM 11/14/19 06/07/20 History magnesium 400 mg PO TID 02/11/20 06/07/20 History metformin 500 mg PO BID 02/11/20 06/07/20 History omeprazole 20 mg PO BID 02/11/20 06/07/20 History ondansetron HCl 8 mg PO Q8H PRN 02/11/20 06/07/20 History atorvastatin 40 mg PO QAM #30 tab 02/13/20 06/07/20 Rx mirtazapine 7.5 mg PO HS #30 tab 02/13/20 06/07/20 Rx multivitamin 1 tab PO QAM 06/06/20 06/07/20 History Patient History Medical History (Updated 06/07/20 @ 16:02 by Cali Hernandez MD) Anemia Anxiety Breast cancer Cancer OVARIAN CANCER AND FOUND NODULE IN DUODENUM AREA AND WILL START CHEMO AFTER THANKS2018 Dementia Diabetes mellitus, type 2 GERD (gastroesophageal reflux disease) History of CVA (cerebrovascular accident) 01/2020, lateral left thalamic infarct Hypertension Ovarian cancer Bilateral ovarian cancer diagnosed in 2013. S/P debulking surgery on 03/05/2014 Peritoneal carcinomatosis SVT (supraventricular tachycardia) Surgical History (Updated 06/07/20 @ 14:06 by Ramona Junior PA-C) History of breast implant History of colon resection History of esophagogastroduodenoscopy (EGD) History of exploratory laparotomy She had total abdominal hysterectomy, bilateral salpingo-oophorectomy, left colectomy, side to side functional end to end reanastomosis, removal of sigmoid nodule, right uterosacral nodule, splenic flexure nodule, omentectomy on 03/05/14. History of mastectomy History of tonsillectomy Hx of colonoscopy Hx of eye surgery UNSURE SOMETHING TO DO WITH RETINA Hx of hysterectomy BSO Family History (Updated 06/07/20 @ 14:06 by Ramona Junior PA-C) Mother Myocardial infarction Sister Breast cancer Social History Smoking Status: Never smoker Second Hand Exposure: No; Hx Alcohol Use: Yes Alcohol type: wine Hx Substance Use: No Preferred Language: Thai Communication Ability: Effective Household Assistant Required: No Beliefs That Will Affect Care: Spiritual marital status: Current Living Situation: Spouse Feels Safe at Home: Yes Assistive Devices: Walker Review of Systems Review of Systems: ROS: Gen: + weakness; denies fevers or chills Eyes: No eye redness, or pain, no recent vision changes Resp: No SOB, no cough Cardio: No palpitations/irregular beats, no chest pain GI: Per HPI, otherwise (-) : Denies pain on urination, no blood in urine Skin: No jaundice, itching or new rashes Physical Exam Constitutional: + ill appearing, + thin (but with large ascites on abdomen) and cooperative Eyes: PERRL, conjunctivae normal, anicteric sclerae ENMT: external ear and nose normal, oropharynx normal Neck: trachea midline, no thyromegaly Respiratory: normal respiratory effort, lungs clear to auscultation Cardiovascular: RRR, no murmur, no edema Gastrointestinal (Abdomen): Inspection/Auscultation: + abdomen distended (moderately firm but not taunt) and + hypoactive bowel sounds Percussion/Palpation: + abdomen tender (epigastric area), abdomen soft and + ascites Musculoskeletal: no cyanosis or clubbing, extremities motor strength 5/5 Skin: no rashes, warm and dry + dry skin and + pallor Neurologic: PERRL, EOMI, accommodation nl, no face palsy, no dysarthria Psychiatric: A+Ox3, euthymic affect Apperance: appropriately groomed Eye Contact: + fair eye contact Insight: good insight quiet affect, answers questions but often allows to speak for her Lymphatic: no cervical or axillary lymphadenopathy Results & Data ([facility]) Vital Signs (Past 12 Hours) Vital Signs Temp Pulse Resp BP Pulse Ox 06/07/20 13:20 97 H 21 96 06/07/20 13:16 96 H 20 189/115 H 100 06/07/20 13:10 103 H 25 H 98 06/07/20 13:00 99 H 23 182/108 H 99 06/07/20 12:50 98 H 24 98 06/07/20 12:44 98 H 24 100 06/07/20 12:30 96 H 22 194/107 H 96 06/07/20 11:26 98 06/07/20 10:48 36.8 C 98 H 18 195/114 H 94 Laboratory Results WBC 16, Hb 11.4, Hct 34.1, Platlets 411, Na 134, K 3.6, BUN 17, Cr 0.96, glucose 288. LFTs are normal. Diagnostic Findings CT abd/pelvis with IV/oral contrast on 06/05/20: 1. There is no evidence of intrathoracic metastatic disease. 2. Findings are consistent with progressive peritoneal carcinomatosis. 3. A large volume of abdominopelvic ascites is new from previous. 4. Small right and trace left pleural effusions are new from previous. 5. Large hiatal hernia. 6. There is no bowel obstruction. Also mentioned in the body of the report is liver nodularity suggesting early cirrhosis.
--- NOTE | 2020-06-07 14:14 | History & Physical Report ---
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 Admit to med telemetry Consult gastroenterology Recommendations conservative treatment for now -coffee-ground emesis likely in setting of gastritis from vomiting IV PPI twice daily, antiemetics and hydration Abdominal pain and nausea likely in setting of worsening ovarian cancer with metastatic disease Upper GI bleed unlikely in setting of no significant hemoglobin drop from yesterday, normal BUN, will monitor closely N.p.o. for now including meds until improving Low-dose IV morphine for pain (3) Ovarian cancer: (4) Peritoneal carcinomatosis: (5) Ascites: She does follow Dr. Jerry in regard to her bilateral ovarian carcinoma with mets to the omentum and colon. In 2013 she did undergo debulking surgery, JENA BSO, L colectomy with side to side functional end to end re anastomosis, removal of sigmoid nodule, r uterosacral nodule, splenic flexure nodule, omentectomy. SHe has underwent numerous rounds of chemo therapy, last 3 months ago. In April she has had significant increase in her CA-125 and was to have follow up with Dr. Jerry today, but was referred to ED / to coffee ground emesis. Patient with worsening ovarian cancer, worsening CA-125 and imaging showing progression of peritoneal carcinomatosis with large ascites Discussed with oncologist Dr. Jerry who recommends therapeutic paracentesis if enough fluid present, adequate pain control Further recommendation is to establish and likely be discharged home on hospice given poor prognosis will consult palliative care and case management (6) Anemia: H/H 11.4 and 34.1, yesterday was 12.2 Monitor hemoglobin closely in setting of coffee-ground emesis Repeat H&H at 6 PM and in a.m. (7) SIRS (systemic inflammatory response syndrome): On admission patient meets SIRS criteria in setting of leukocytosis and tachycardia Both could be in setting of pain and frequent nausea/vomiting Blood cultures and urine cultures obtained, MRSA swab CT scan abdomen pelvis negative for acute intra-abdominal pathology on 06/06, Chest CT b/l pleural effusions, obtain KUB will start IV Rocephin and Flagyl empirically until infection ruled out (8) Diabetes mellitus, type 2: A1c 5.9 on 02/07 Obtain A1c in a.m. Hold Metformin Admitting BSG greater than 200, Lantus/NovoLog per protocol (9) Hypertension: Patient significantly hypertensive in ED Has been without metoprolol and lisinopril for 2 to 3 days secondary to nausea and vomiting Placed on metoprolol 5 mg IV every 6 hours -patient also with history of SVT 10 mg IV hydralazine ordered in ED Treat BP as needed while n.p.o. (10) Dementia: Patient with history of dementia with prescription for Haldol, although states he has not had to use it Prior hospitalizations, most recently 01/2020 patient did experience delirium requiring family presence and haldol (11) DVT prophylaxis: SCD/TEDS for now until bleed ruled out pt high risk for dvt/pe in setting of malignancy Disposition: Admit to telemetry, consult palliative care and case management possible transition to palliative care or hospice Follow-up: PCP Dr. Miles upon discharge Patient was seen and examined in collaboration with Dr. Negro, please see addendum History of Present Illness Chief Complaint: N/V, coffee ground emesis, abdominal pain. 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 Of significance symptoms started 2 to 3 days ago. She has been having generalized, diffuse, colicky abdominal pain, described as "hard," constant, made worse with emesis, and improved with rest. at bedside states that since last evening at approximately 9 PM she has vomited 0.15 quarts of coffee-ground emesis. She was seen and evaluated in ED yesterday and underwent CT chest and abdomen pelvis. This showed worsening of her peritoneal carcinomatosis, abdominal ascites and bilateral small pleural effusions but no other acute process. She was treated with IV fluids, antiemetics and Toradol and was discharged home. Unfortunately vomiting returned at about 9 PM and she started vomiting every 10 minutes. For the past 2 to 3 days she has been unable to keep anything down including medications. She denies any fever, chills, sweats, lightheadedness, dizziness, syncope, chest pain, shortness of breath, cough, constipation, dysuria, increased urgency or frequency with urination and hematuria. She does have diarrhea about 1-2 episodes a day but this is not unusual for her. Her last bowel movement was once yesterday, large amount and denies any melena or hematochezia. She denies taking any Mylanta or Maalox. Denies any prior history of GI bleeding. She does follow Dr. Jerry in regard to her bilateral ovarian carcinoma with mets to the omentum and colon. In 2013 she did undergo debulking surgery, JENA BSO, L colectomy with side to side functional end to end re anastomosis, removal of sigmoid nodule, r uterosacral nodule, splenic flexure nodule, omentectomy. SHe has underwent numerous rounds of chemo therapy, last 3 months ago. In April she has had significant increase in her CA-125 and was to have follow up with Dr. Jerry today, but was referred to ED 2/ to coffee ground emesis. In ED she remained hemodynamically stable although significantly hypertensive and mildly tachycardic in the high 90s. Lab work notable for WBC 16.8 9K, H&H 11.4 and 34.1, platelet 411, sodium 134, K3.6, BUN 17, creatinine 0.96, glucose 288. She was started on IV Protonix bolus and drip, Zofran and received 1 L of IV fluid. Upon my evaluation she was feeling improved and no longer vomiting. She did not undergo any further imaging. Allergies Allergy/AdvReac Type Severity Reaction Status Date / Time codeine Allergy Mild Unknown Verified 06/07/20 13:04 Penicillins Allergy Mild UNSURE OF Verified 06/07/20 13:04 REACTION Home Medications Medication Instructions Recorded Confirmed Type cyanocobalamin (vitamin B-12) 1,000 mcg PO QAM 04/25/19 06/07/20 History [Vitamin B-12] metoprolol succinate 50 mg PO QAM 08/09/19 06/07/20 History aspirin 81 mg PO QAM #30 tab 08/19/19 06/07/20 Rx lisinopril 2.5 mg PO QAM 11/14/19 06/07/20 History magnesium 400 mg PO TID 02/11/20 06/07/20 History metformin 500 mg PO BID 02/11/20 06/07/20 History omeprazole 20 mg PO BID 02/11/20 06/07/20 History ondansetron HCl 8 mg PO Q8H PRN 02/11/20 06/07/20 History atorvastatin 40 mg PO QAM #30 tab 02/13/20 06/07/20 Rx mirtazapine 7.5 mg PO HS #30 tab 02/13/20 06/07/20 Rx multivitamin 1 tab PO QAM 06/06/20 06/07/20 History Past Med/Surg History Medical History (Updated 06/07/20 @ 16:02 by Cali Hernandez MD) Anemia Anxiety Breast cancer Cancer OVARIAN CANCER AND FOUND NODULE IN DUODENUM AREA AND WILL START CHEMO AFTER 2018 Dementia Diabetes mellitus, type 2 GERD (gastroesophageal reflux disease) History of CVA (cerebrovascular accident) 01/2020, lateral left thalamic infarct Hypertension Ovarian cancer Bilateral ovarian cancer diagnosed in 2013. S/P debulking surgery on 03/05/2014 Peritoneal carcinomatosis SVT (supraventricular tachycardia) Surgical History (Updated 06/07/20 @ 14:06 by Ramona Junior PA-C) History of breast implant History of colon resection History of esophagogastroduodenoscopy (EGD) History of exploratory laparotomy She had total abdominal hysterectomy, bilateral salpingo-oophorectomy, left colectomy, side to side functional end to end reanastomosis, removal of sigmoid nodule, right uterosacral nodule, splenic flexure nodule, omentectomy on 03/05/14. History of mastectomy History of tonsillectomy Hx of colonoscopy Hx of eye surgery UNSURE SOMETHING TO DO WITH RETINA Hx of hysterectomy BSO Family History (Updated 06/07/20 @ 14:06 by Ramona Junior PA-C) Mother Myocardial infarction Sister Breast cancer Social History Smoking Status: Never smoker Second Hand Exposure: No; Do You Dip or Chew Tobacco: No; Tobacco Cessation Education Requested by Patient: No Hx Alcohol Use: Yes Alcohol type: wine Hx Substance Use: No Preferred Language: Afghan Communication Ability: Effective Store Mgr Required: No Beliefs That Will Affect Care: None marital status: Current Living Situation: Spouse Other Information That Helps Us Care for You: No Feels Safe at Home: Yes Assistive Devices: Walker Review of Systems Review of Systems: All systems reviewed & are unremarkable except as noted in HPI & below Physical Exam Physical Exam: Constitutional: Thin, petite, elderly, female vitals as above, NAD, sitting up in bed, pleasant, conversing easily, answers questions appropriately Head: Normocephalic, Atraumatic Eyes: PERRL, conjunctivae normal, anicteric sclerae ENMT: external ear and nose normal, oropharynx normal Neck: trachea midline, no thyromegaly normal visual inspection Respiratory: normal respiratory effort, lungs clear to auscultation, no wheeze, rales, rhonchi. Normal insp/exp effort, no accessory muscle use Cardiovascular: Tachycardic rate, regular rhythm, 2/6 ADEBAYO at RUSB, no edema Vessels: no JVD or carotid bruit Chest: normal inspection of chest , left anterior chest wall port Abdomen: normal bowel sounds, soft, nontender, no hepatosplenomegaly Musculoskeletal: no cyanosis or clubbing, extremities motor strength 5/5 Skin: no rashes, warm and dry normal turgor Neurologic: PERRL, EOMI, accommodation nl, no face palsy, no dysarthria CN's I I-XI intact bilaterally and moves all extremities Psychiatric: A+Ox3, euthymic affect Lymphatic: no cervical or axillary lymphadenopathy : deferred Results & Data Results & Data ([facility]) Vital Signs (Past 12 Hours) Vital Signs Temp Pulse Resp BP Pulse Ox 06/07/20 13:20 97 H 21 96 06/07/20 13:16 96 H 20 189/115 H 100 06/07/20 13:10 103 H 25 H 98 06/07/20 13:00 99 H 23 182/108 H 99 06/07/20 12:50 98 H 24 98 06/07/20 12:44 98 H 24 100 06/07/20 12:30 96 H 22 194/107 H 96 06/07/20 11:26 98 06/07/20 10:48 36.8 C 98 H 18 195/114 H 94 Laboratory Results Short CBC 06/07/20 06/07/20 Range/Units 11:22 11:22 WBC 16.89 H (4.8-10.8) K/uL Hgb 11.4 L (12.0-16.0) g/dL Hct 34.1 L (37-47) % Plt Count 411 H (130-400) K/uL Potassium 3.6 D (3.5-5.1) mmol/L BMP 06/07/20 11:22 Sodium 134 L Potassium 3.6 D Chloride 97 L Carbon Dioxide 28 BUN 17 Creatinine 0.96 Glucose 288 H Calcium 9.1 Liver Function 06/07/20 Range/Units 11:22 Total Bilirubin 0.6 (0.2-1) mg/dl AST 22 (15-37) U/L ALT 18 (12-78) U/L Alkaline Phosphatase 105 (45-117) U/L Albumin 3.5 (3.4-5.0) gm/dl Diagnostic Findings 06/05/20 CT SCAN OF THE CHEST, ABDOMEN, AND PELVIS WITH IV CONTRAST CLINICAL HISTORY: Ovarian cancer. COMPARISON STUDY: CT scan of the chest, abdomen, and pelvis dated 03/19/2020. TECHNIQUE: Following the IV administration of 93 of Optiray 320, CT scan of the chest, abdomen, and pelvis was performed from the thoracic inlet to the proximal femora. Images are reviewed in the axial, sagittal, and coronal planes. IV contrast was administered without complication. Oral contrast was utilized. A dose lowering technique was utilized adhering to the principles of ALARA. The examination is degraded by streak artifact from the arms which could not be elevated above the chest or abdomen. CT DOSE: 534.10 mGy.cm FINDINGS: CHEST: Thyroid: Imaged portions of the thyroid gland are normal in size and attenuation. Thoracic aorta: The thoracic aorta is normal in caliber and demonstrates standard 3-vessel arch anatomy. No dissection is seen. Pulmonary vasculature: The pulmonary trunk is normal in caliber. There are no filling defects identified in the central pulmonary vessels to indicate pulmonary embolus. Note that this examination was not protocoled for evaluation of the pulmonary arteries. Heart: A left internal jugular central venous infusion port is in place. The heart is normal in size and without pericardial effusion. Lungs and pleural spaces: Subpleural reticulation is seen throughout both lungs. The trachea and central airways are clear. There are small right and trace left pleural effusions with associated atelectasis. No airspace consolidation is seen typical for pneumonia. There are scattered calcified granulomas. A 3 mm right lower lobe pulmonary nodule on image #141 is unchanged from previous. No new pulmonary nodule is seen. Mediastinum: Scattered subcentimeter mediastinal lymph nodes are not pa thologically enlarged by size criteria. Mirela: Clear. Axillae: There is no axillary lymphadenopathy. Bony thorax: The skeletal structures are osteopenic. Degenerative change and hyperkyphosis is seen in the thoracic spine. There are healed right-sided rib fractures. No lytic or blastic lesions are identified. Soft tissues: There are bilateral breast implants. ABDOMEN AND PELVIS: Liver: The contrast-enhanced liver is normal in size and heterogeneous in attenuation. Nodularity of the hepatic surface contour suggests early change of cirrhosis. There is no intrahepatic biliary ductal dilatation. The hepatic veins and portal veins are patent. Gallbladder: Nonspecific gallbladder wall thickening is likely related to ascites. Spleen: Normal in size and attenuation. Pancreas: Atrophic and grossly unremarkable. Adrenal glands: Unremarkable. Kidneys: The contrast enhanced kidneys demonstrate cortical atrophy and are without hydronephrosis. The kidneys enhance symmetrically. Abdominal vasculature: The abdominal aorta is normal in course and caliber noting moderate atherosclerotic calcification. Stomach and bowel: There is a large hiatal hernia which also contains ascitic fluid. There is postoperative change from left sided colon resection with colocolonic anastomosis. No bowel obstruction is identified. Enteric contrast reaches the distal small bowel. The appendix is not well visualized. Peritoneum: Findings suggest previous omentectomy. There is a large volume of abdominal ascites which is new from 03/19/2020. No intraperitoneal free air is seen. There is diffuse peritoneal thickening and enhancement. Omental caking is seen in the left upper quadrant, and these findings are consistent with peritoneal metastatic disease. This has progressed as compared to 03/19/2020. A 1.3 cm nodule in the left upper quadrant as seen on image 132. Lymphadenopathy: None. Pelvic viscera: The bladder is normal as visualized. The uterus is surgically absent. No adnexal lesion is seen. Skeletal structures: The skeletal structures are osteopenic. There is moderate to advanced lumbosacral spondylosis. A chronic compression deformity of L1 is again noted. No lytic or blastic lesions are seen. IMPRESSION: 1. There is no evidence of intrathoracic metastatic disease. 2. Findings are consistent with progressive peritoneal carcinomatosis. 3. A large volume of abdominopelvic ascites is new from previous. 4. Small right and trace left pleural effusions are new from previous. 5. Large hiatal hernia. 6. There is no bowel obstruction. 7. Additional findings as above. Medications Administered Pantoprazole Sodium 40 mg/ (Dextrose) 100 mls @ 20 mls/hr IV Q5H NIKA Stop: 06/07/20 16:14 Last Admin: 06/07/20 12:07 Dose: 8 mg/hr, 20 mls/hr Documented by: [id number] Discontinued Medications Sodium Chloride (Nss 1000ml) 1,000 mls @ 999 mls/hr IV .Q1H1M NIKA Stop: 06/07/20 12:15 Last Infusion: 06/07/20 14:07 Dose: 0 mls/hr Documented by: [id number] Admin: 06/07/20 11:37 Dose: 999 mls/hr Documented by: [id number] Pantoprazole Sodium 80 mg/ (Dextrose) 100 mls @ 400 mls/hr IV NOW ONE Stop: 06/07/20 11:23 Last Infusion: 06/07/20 11:52 Dose: 0 mls/hr Documented by: [id number] Admin: 06/07/20 11:37 Dose: 400 mls/hr Documented by: [id number] Ondansetron HCl (Ondansetron Inj 2 Mg/Ml 2 Ml Vial) 4 mg IV ONE STA Stop: 06/07/20 11:10 Last Admin: 06/07/20 11:35 Dose: 4 mg Documented by: [id number] ECG Rate (beats per minute): 102 Rhythm: sinus tachycardia Comparison ECG Date: from (06/06/20) Change: no significant change Code Status & VTE Plan Code Status Full Code VTE Prophylaxis Plan VTE Prophylaxis will be ordered: Yes Reason for no VTE drug order: Contraindicated Supervising Physician Co-Signing Physician Notes Pt was seen and examined. Agreed with Ramona MCNEIL exam, assessment and plan. 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 at bedside said that pt has been vomiti ng started last night. said that pt had a quart of coffee ground emesis. She said that she is having 1 -2 episode of diarrhea that is normal to her. Pt was in the ER last night for the similar symptoms. CT abd/pelvis done on 06/05 showed a large volume of abdominopelvic ascites is new from previous. Abdominal u/s showed moderate to large abdominal and pelvic ascites is noted. Case discussed with oncology Dr. Jerry that does not plan to start any chemo treatment since her ovarian adenocarcinoma worsening and she has a very poor prognosis. Dr. jerry oncologist recommended to transition to hospice on discharge. Gastro on board and no plan for EGD since hemoglobin stable and family declined for any EGD even if hemoglobin drops. Will talk to radiology to try to get a paracentesis done today. Continue supportive therapy with antiemetic and PPI. Will start on clear liquid diet and advanced as tolerated. palliative care consult. Continue monitor CBC closely. MD Sruthi (1) Ascites Ascites type: malignant Qualified Code(s): R18.0 - Malignant ascites (2) Ovarian cancer Laterality: unspecified laterality Qualified Code(s): C56.9 - Malignant neoplasm of unspecified ovary
[2020-06-07] MEDS ORDERED: hydrALAZINE HCL 20 MG/ML VIAL ONE (14:21)
[2020-06-07] MEDS ORDERED: METOPROLOL TARTRATE 1 MG/ML VIAL IV ONE (14:21)
--- NOTE | 2020-06-07 14:40 | XRay Report ---
KUB HISTORY: Generalized abdominal pain. Nausea. Vomiting. R/o SBO COMPARISON: Abdomen and pelvis CT 06/05/2020. FINDINGS: Centralized contrast filled bowel consistent with the patient's known ascites. No dilated l oops of bowel to suggest an obstruction. Contrast is seen within the small bowel and colon. No renal calculi. No ureteral calculi. No pneumoperitoneum or pneumatosis. IMPRESSION: 1. No evidence for bowel obstruction. 2. Ascites. ACT 112: Negative or not required by law. Electronically signed by: Mateusz Parsons M.D. 06/07/2020 2:39 PM
--- NOTE | 2020-06-07 15:54 | Ultrasound Report ---
US abdomen ltd ascites CLINICAL HISTORY: Abdominal pain. Assess for ascites. COMPARISON STUDY: CT of the abdomen and pelvis June 05, 2020. KUB performed earlier today. FINDINGS: Moderate to large abdominal and pelvic ascites is noted. IMPRESSION: Moderate to large ascites. ACT 112: Negative or not required by law. Electronically signed by: Tye Elliott M.D. 06/07/2020 3:53 PM
[2020-06-07] MEDS ORDERED: MAGNESIUM HYDROXIDE SUSP 30 ML UDC PO PRN (16:13)
[2020-06-07] MEDS ORDERED: POLYETHYLENE (MIRALAX) 17 GM PACK PO PRN (16:13)
[2020-06-07] MEDS ORDERED: GLUCOSE 10 TABS/TUBE PO PRN (16:13)
[2020-06-07] MEDS ORDERED: GLUCOSE 40% GEL 15 GM TUBE PO PRN (16:13)
[2020-06-07] MEDS ORDERED: CARBOHYDRATES FOR HYPOGLYCEMIA PO PRN (16:13)
[2020-06-07] MEDS ORDERED: ACETAMINOPHEN 325 MG TAB PO PRN (16:13)
[2020-06-07] MEDS ORDERED: DEXTROSE 50% 50 ML SYRINGE IV PRN (16:13)
[2020-06-07] MEDS ORDERED: MoRPHine SULFATE 2 MG/ML CARP IV PRN (16:13)
[2020-06-07] MEDS ORDERED: GLUCAGON FOR INJ 1 MG VIAL SQ PRN (16:13)
--- NOTE | 2020-06-07 17:40 | Ultrasound Report ---
PARACENTESIS UNDER ULTRASOUND GUIDANCE CLINICAL HISTORY: Abdominal ascites. Therapeutic paracentesis. COMPARISON STUDY: Abdominal CT dated 06/05/2020. PROCEDURE: The risks, benefits, and alternatives to the procedure were discussed with the patient who voiced understanding. Written informed consent was obtained. Following real-time ultrasound localiza tion of a suitable pocket of fluid in the left lower quadrant, the abdomen was prepped and draped in the usual sterile fashion. The skin and soft tissues were anesthetized with 1% lidocaine. The sheathe d paracentesis needle was inserted and approximately 3 liters of straw-colored ascitic fluid was rogelio michelle by vacuum suction. The procedure was well tolerated and without immediate complication. The patie nt left the department in satisfactory condition. IMPRESSION: Successful ultrasound-guided paracentesis with removal of approximately 3 liters of ascit ic fluid. ACT 112: Negative or not required by law. Electronically signed by: Carlyle Dimas M.D. 06/07/2020 5:36 PM
[2020-06-07] MEDS: NSS + 20MEQ KCL 20 MEQ/1,000 ML BAG IV SCH (17:44)
[2020-06-07] MEDS: MAGNESIUM SULFATE / D5W 1 GM/100 ML BAG IV SCH ×2 (17:45→19:09)
[2020-06-07] MEDS: METOPROLOL TARTRATE 1 MG/ML VIAL IV SCH (17:45)
[2020-06-07] MEDS: metroNIDAZOLE 500 MG/100 ML BAG IV SCH ×2 (17:51→21:54)
[2020-06-07] MEDS: cefTRIAXone SODIUM 2,000 MG in DEXTROSE 5% 50 ML IV SCH (17:51)
[2020-06-07 18:32] LABS: Hematocrit (blood only) 30.6 % (37-47); Hemoglobin 10.4 g/dL (12.0-16.0)
[2020-06-07] MEDS: INSULIN ASPART 100 UNITS/ML 3 ML PEN SC SCH ×2 (19:10→21:55)
[2020-06-07] MEDS: INSULIN GLARGINE SOLOSTAR 100 UNITS/ML 3 ML PEN SC SCH (21:54)
[2020-06-07] MEDS: PANTOprazole 40 MG in SYRINGE 0 ML IV SCH (21:54)
[2020-06-08] MEDS: METOPROLOL TARTRATE 1 MG/ML VIAL IV SCH ×3 (00:17→12:34)
--- NOTE | 2020-06-08 06:19 | Electrocardiogram Report ---
Test Reason : Blood Pressure : / mmHG Vent. Rate : 102 BPM Atrial Rate : 102 BPM P-R Int : 178 ms QRS Dur : 068 ms QT Int : 338 ms P-R-T Axes : 015 -02 073 degrees QTc Int : 440 ms Sinus tachycardia Cannot rule out Anterior infarct Nonspecific T wave abnormality Abnormal ECG When compared with ECG of 06-JUN-2020 16:24, No significant change was found Confirmed by Earl Thompson ([id number]) on 06/08/2020 6:18:54 AM Referred By: Confirmed By:Earl Thompson
[2020-06-08 06:29] LABS: Basophils # (auto) 0.01 K/uL (0-0.2); Basophils % (auto) 0.1 %; Eosinophils # (auto) 0.04 K/uL (0-0.5); Eosinophils % (auto) 0.3 %; Hematocrit (blood only) 30.8 % (37-47); Hemoglobin 10.3 g/dL (12.0-16.0); Immature Granulocytes # (auto) 0.03 K/uL (0.00-0.02); Immature Granulocytes % (auto) 0.2 %; Lymphocytes # (auto) 1.16 K/uL (1.2-3.4); Lymphocytes % (auto) 8.9 %; Mean Corpuscular Hemoglobin 28.6 pg (25-34); Mean Corpuscular Hgb Conc 33.4 g/dL (32-36); Mean Corpuscular Volume 85.6 fL (80-100); Monocytes # (auto) 1.64 K/uL (0.11-0.59); Monocytes % (auto) 12.5 %; Neutrophils # (auto) 10.22 K/uL (1.4-6.5); Platelet Count 366 K/uL (130-400); RDW Coefficient of Variation 13.3 % (11.5-14.5); RDW Standard Deviation 41.7 fL (36.4-46.3)
[2020-06-08] MEDS: metroNIDAZOLE 500 MG/100 ML BAG IV SCH ×2 (06:38→14:26)
[2020-06-08 07:02] LABS: Albumin Level 2.4 gm/dl (3.4-5.0); BUN Creatinine Ratio 21.2 (10-20); Calcium 7.8 mg/dl (8.5-10.1); Creatinine Clr Calc Pharmacy 46.7 ml/min; Est GFR (African American) 95.3; Est GFR (Non-African American) 82.2; Magnesium 1.9 mg/dl (1.8-2.4); Potassium 3.5 mmol/L (3.5-5.1)
[2020-06-08 07:09] LABS: Albumin Globulin Ratio 0.9 (0.9-2); Bilirubin,Total 0.4 mg/dl (0.2-1); Globulin 2.6 gm/dl (2.5-4.0)
[2020-06-08 07:40] LABS: Estimated Average Glucose 148 mg/dl; Hemoglobin A1C 6.8 % (4.5-5.6)
[2020-06-08] MEDS: PANTOprazole 40 MG in SYRINGE 0 ML IV SCH (07:45)
[2020-06-08] MEDS: INSULIN ASPART 100 UNITS/ML 3 ML PEN SC SCH ×4 (08:08→21:48)
[2020-06-08] MEDS: INSULIN GLARGINE SOLOSTAR 100 UNITS/ML 3 ML PEN SC SCH ×2 (08:08→21:47)
[2020-06-08 08:17] LABS: Appearance Urine Cloudy (Clear); Bacteria Urine Automated 4+ (Negative); Bilirubin Urine Negative (Negative); Blood Urine Negative (Negative); Color Urine Yellow; Glucose Urine UA 2+ (Negative); Ketones Urine 1+ (Negative); Leukocyte Esterase Urine 2+ (Negative); Nitrite Urine Positive (Negative); Protein Urine 1+ (Negative); RBC Urine Automated 0-4 /hpf (0-4); Urobilinogen Urine Negative (Negative); WBC Urine Automated >30 /hpf (0-5)
[2020-06-08] MEDS: NSS + 20MEQ KCL 20 MEQ/1,000 ML BAG IV SCH (14:21)
--- NOTE | 2020-06-08 14:22 | Hospitalist Progress Note ---
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 Coffee-ground emesis Nausea, vomiting, abdominal pain Likely secondary to cancer, Hiatal Hernia. DD: Gastritis, esophagitis --CT ABD:There is no evidence of intrathoracic metastatic disease. Findings are consistent with progressive peritoneal carcinomatosis. A large volume of abdominopelvic ascites is new from previous. Small right and trace left pleural effusions are new from previous. Large hiatal hernia. There is no bowel obstruction. --No plan for Endoscopy --Continue PPI BID -Appreciate GI Input - Advance diet as tolerated -Monitor CBC, Transfuse PRBCs as needed (3) Ovarian cancer: (4) Peritoneal carcinomatosis: (5) Ascites: Ovarian cancer with mets to omentum and colon Ascites Peritoneal carcinomatosis S/P debulking surgery in 2013 Received chemotherapy, last 3 months ago Significant increase in CA-[address] ABD as above S/P abdominal paracentesis with successful removal of 3 L of acetic fluid Follows with Dr. Trav Nicholson as outpatient Very poor prognosis Palliative care consulted to address goals of care Family interested in hospice services (6) Anemia: Anemia of chronic disease (7) SIRS (systemic inflammatory response syndrome): Sepsis -POA UTI-POA Urine Cx: E.coli Blood Cx:Pending Started on Rocephin Day #1 (8) Diabetes mellitus, type 2: A1c 6.8 Hold Metformin Continue Lantus/NovoLog per protocol Monitor BGs (9) Hypertension: H/O SVT Resume metoprolol and lisinopril Monitor BP (10) Dementia: H/O dementia with prescription for Haldol, although states he has not had to use it Reorient frequently to minimize delirium (11) DVT prophylaxis: SCD/TEDS for now Code Status Full Code for now Need to readdress code status given poor prognosis Palliative Care consulted Disposition: Follow-up: PCP Dr. Miles upon discharge Admission and Anticipated Discharge Date Admission Date: June 07, 2020 Subjective Patient is seen and examined at bedside Anxious to be discharged home No nausea, vomiting today Denies chest pain, shortness of breath, abdominal pain, dizziness Discussed with oncology Dr. Nicholson over the phone Also discussed with patient's family Minimal dry cough Review of Systems Review of Systems: All systems reviewed & are unremarkable except as noted in HPI & below Physical Exam Physical Exam: Physical Exam: Vitals signs as noted above General Appearance: Chronically ill-appearing, elderly no apparent distress, +Hoarse voice Head: normocephalic, Atraumatic Eyes: normal inspection, EOMI Neck: supple, Trachea midline Respiratory/Chest: Normal breath sounds, CTA, No accessory muscle use Cardiovascular: S1, S2, + systolic murmur Abdomen/GI:Soft, Non tender, Bowel sounds present Extremities/Musculoskelatal:normal inspection, no edema Neurologic/Psych:AAOX3, grossly no focal neurological deficits Skin: normal color, warm Results & Data Results & Data ([facility]) Vital Signs (Past 12 Hours) Vital Signs Temp Pulse Pulse Resp BP BP BP 06/08/20 12:34 96 H 162/86 H 06/08/20 11:44 37.2 C 90 18 130/77 06/08/20 06:40 80 114/70 06/08/20 03:54 36.8 C 74 18 122/66 Pulse Ox 06/08/20 12:34 06/08/20 11:44 94 06/08/20 06:40 06/08/20 03:54 92 Laboratory Results Short CBC 06/07/20 06/08/20 Range/Units 18:17 05:37 WBC 13.10 H (4.8-10.8) K/uL Hgb 10.4 L 10.3 L (12.0-16.0) g/dL Hct 30.6 L 30.8 L (37-47) % Plt Count 366 (130-400) K/uL BMP 06/08/20 05:37 Sodium 140 Potassium 3.5 Chloride 106 Carbon Dioxide 27 BUN 15 Creatinine 0.69 Glucose 107 H Calcium 7.8 L Liver Function 06/08/20 Range/Units 05:37 Total Bilirubin 0.4 (0.2-1) mg/dl AST 18 (15-37) U/L ALT 10 L (12-78) U/L Alkaline Phosphatase 73 (45-117) U/L Albumin 2.4 L (3.4-5.0) gm/dl Urine 06/08/20 Range/Units 08:05 Urine Color Yellow Urine Appearance Cloudy A (Clear) Urine pH 5.0 (4.5-7.5) Ur Specific [place] 1.020 (1.000-1.030) Urine Protein 1+ H (Negative) Urine Glucose (UA) 2+ H (Negative) (1) Ovarian cancer Laterality: unspecified laterality Qualified Code(s): C56.9 - Malignant neoplasm of unspecified ovary (2) Ascites Ascites type: malignant Qualified Code(s): R18.0 - Malignant ascites
[2020-06-08] MEDS: cefTRIAXone SODIUM 2,000 MG in DEXTROSE 5% 50 ML IV SCH (14:55)
[2020-06-08] MEDS: cefTRIAXone SODIUM 1,000 MG in DEXTROSE 5% 50 ML IV SCH (16:10)
[2020-06-08] MEDS: METOPROLOL SUCC 50MG EXT REL TAB PO SCH (16:42)
[2020-06-08] MEDS: lisinopril 2.5 MG TAB PO SCH (16:42)
[2020-06-08] MEDS: MIRTAZAPINE TAB 15 MG TAB PO SCH (21:49)
[2020-06-08] MEDS: PANTOprazole 40 MG TAB PO SCH (21:49)
[2020-06-09] MEDS: ONDANSETRON INJ 2 MG/ML 2 ML VIAL IV PRN (05:49)
[2020-06-09 07:45] LABS: Hematocrit (blood only) 33.7 % (37-47); Hemoglobin 11.1 g/dL (12.0-16.0); Mean Corpuscular Hemoglobin 28.5 pg (25-34); Mean Corpuscular Hgb Conc 32.9 g/dL (32-36); Mean Corpuscular Volume 86.6 fL (80-100); Mean Platelet Volume 9.1 fL (7.4-10.4); Platelet Count 374 K/uL (130-400); RDW Coefficient of Variation 13.4 % (11.5-14.5); RDW Standard Deviation 42.4 fL (36.4-46.3); Red Blood Count 3.89 M/uL (4.2-5.4); White Blood Count 9.29 K/uL (4.8-10.8)
[2020-06-09] MEDS: lisinopril 2.5 MG TAB PO SCH (07:51)
[2020-06-09] MEDS: PANTOprazole 40 MG TAB PO SCH ×2 (07:51→21:32)
[2020-06-09] MEDS: METOPROLOL SUCC 50MG EXT REL TAB PO SCH (07:52)
[2020-06-09] MEDS: ATORVASTATIN 40 MG TAB PO SCH (07:52)
[2020-06-09 08:22] LABS: BUN Creatinine Ratio 20.8 (10-20); Creatinine Clr Calc Pharmacy 52.8 ml/min; Est GFR (African American) 99.2; Est GFR (Non-African American) 85.6; Magnesium 1.5 mg/dl (1.8-2.4); Potassium 3.4 mmol/L (3.5-5.1)
[2020-06-09] MEDS: INSULIN ASPART 100 UNITS/ML 3 ML PEN SC SCH ×4 (08:43→21:31)
[2020-06-09] MEDS: INSULIN GLARGINE SOLOSTAR 100 UNITS/ML 3 ML PEN SC SCH ×2 (08:44→21:31)
[2020-06-09] MEDS ORDERED: POTASSIUM CHLORIDE CRTAB 20 MEQ TABCR PO ONE (08:51)
[2020-06-09] MEDS ORDERED: METOPROLOL SUCC 50MG EXT REL TAB PO SCH (09:00)
[2020-06-09] MEDS: MAGNESIUM SULFATE / D5W 1 GM/100 ML BAG IV SCH ×2 (09:27→11:38)
[2020-06-09] MEDS: ALUMINUM/MAGNESIUM SUSP 30 ML UDC PO PRN ×2 (11:15→21:38)
--- NOTE | 2020-06-09 15:11 | Hospitalist Progress Note ---
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 Coffee-ground emesis Nausea, vomiting, abdominal pain Likely secondary to cancer, Hiatal Hernia. DD: Gastritis, esophagitis --CT ABD:There is no evidence of intrathoracic metastatic disease. Findings are consistent with progressive peritoneal carcinomatosis. A large volume of abdominopelvic ascites is new from previous. Small right and trace left pleural effusions are new from previous. Large hiatal hernia. There is no bowel obstruction. --No plan for Endoscopy --Continue PPI BID -Appreciate GI Input -Tolerating regular diet -Minimal drop in hemoglobin likely dilutional secondary to IV fluids -Monitor CBC, Transfuse PRBCs as needed -Hb stable (3) Ovarian cancer: (4) Peritoneal carcinomatosis: (5) Ascites: Ovarian cancer with mets to omentum and colon Ascites Peritoneal carcinomatosis S/P debulking surgery in 2013 Received chemotherapy, last 3 months ago Significant increase in CA-[address] ABD as above S/P abdominal paracentesis with successful removal of 3 L of acetic fluid Follows with Dr. Trav Nicholson as outpatient Very poor prognosis Palliative care consulted to address goals of care Family interested in hospice services No pain currently (6) Anemia: Anemia of chronic disease (7) SIRS (systemic inflammatory response syndrome): Sepsis -POA UTI-POA Urine Cx: E.coli --pansensitive Blood Cx: No growth to date Continue Rocephin Day #2 (8) Diabetes mellitus, type 2: A1c 6.8 Hold Metformin Continue Lantus/NovoLog per protocol Monitor BGs (9) Hypertension: H/O SVT Continue metoprolol and lisinopril Monitor BP (10) Dementia: H/O dementia with prescription for Haldol, although states he has not had to use it Reorient frequently to minimize delirium (11) DVT prophylaxis: SCD/TEDS for now Code Status Full Code for now Need to readdress code status given poor prognosis Palliative Care consulted Disposition: Follow-up: PCP Dr. Miles upon discharge Admission and Anticipated Discharge Date Admission Date: June 08, 2020 Subjective Patient is seen and examined at bedside States feeling better today Less comfortably Tolerating food without nausea, abdominal pain Offers no other complaints Sitting in chair comfortably this morning Denies chest pain, dyspnea, dizziness Review of Systems Review of Systems: All systems reviewed & are unremarkable except as noted in HPI & below Physical Exam Physical Exam: Physical Exam: Vitals signs as noted above General Appearance: Chronically ill-appearing, elderly no apparent distress, +Hoarse voice Head: normocephalic, Atraumatic Eyes: normal inspection, EOMI Neck: supple, Trachea midline Respiratory/Chest: Normal breath sounds, CTA, No accessory muscle use Cardiovascular: S1, S2, + systolic murmur Abdomen/GI:Soft, Non tender, Bowel sounds present Extremities/Musculoskelatal:normal inspection, no edema Neurologic/Psych:AAOX3, grossly no focal neurological deficits Skin: normal color, warm Results & Data Results & Data ([facility]) Vital Signs (Past 12 Hours) Vital Signs Temp Pulse Resp BP BP Pulse Ox 06/09/20 11:53 36.9 C 65 18 126/73 95 06/09/20 07:35 36.9 C 71 18 139/82 93 06/09/20 05:26 37.1 C 64 18 148/84 H 96 Laboratory Results Short CBC 06/09/20 Range/Units 07:08 WBC 9.29 (4.8-10.8) K/uL Hgb 11.1 L (12.0-16.0) g/dL Hct 33.7 L (37-47) % Plt Count 374 (130-400) K/uL BMP 06/09/20 07:08 Sodium 139 Potassium 3.4 L Chloride 107 Carbon Dioxide 27 BUN 13 Creatinine 0.61 Glucose 113 H Calcium 8.0 L (1) Ovarian cancer Laterality: unspecified laterality Qualified Code(s): C56.9 - Malignant neoplasm of unspecified ovary (2) Ascites Ascites type: malignant Qualified Code(s): R18.0 - Malignant ascites
[2020-06-09] MEDS: cefTRIAXone SODIUM 1,000 MG in DEXTROSE 5% 50 ML IV SCH (16:06)
[2020-06-09] MEDS: MIRTAZAPINE TAB 15 MG TAB PO SCH (21:48)
[2020-06-10 06:46] LABS: Hematocrit (blood only) 33.9 % (37-47); Hemoglobin 11.4 g/dL (12.0-16.0); Mean Corpuscular Hemoglobin 29.1 pg (25-34); Mean Corpuscular Hgb Conc 33.6 g/dL (32-36); Mean Corpuscular Volume 86.5 fL (80-100); Mean Platelet Volume 8.9 fL (7.4-10.4); Platelet Count 394 K/uL (130-400); RDW Coefficient of Variation 13.3 % (11.5-14.5); RDW Standard Deviation 41.9 fL (36.4-46.3); Red Blood Count 3.92 M/uL (4.2-5.4); White Blood Count 9.73 K/uL (4.8-10.8)
[2020-06-10 07:10] LABS: Calcium 7.6 mg/dl (8.5-10.1); Creatinine Clr Calc Pharmacy 50.4 ml/min; Est GFR (African American) 97.7; Est GFR (Non-African American) 84.3; Magnesium 2.1 mg/dl (1.8-2.4); Potassium 4.1 mmol/L (3.5-5.1)
[2020-06-10] MEDS: ATORVASTATIN 40 MG TAB PO SCH (08:21)
[2020-06-10] MEDS: METOPROLOL SUCC 50MG EXT REL TAB PO SCH (08:21)
[2020-06-10] MEDS: PANTOprazole 40 MG TAB PO SCH (08:21)
[2020-06-10] MEDS: lisinopril 2.5 MG TAB PO SCH (08:21)
[2020-06-10] MEDS: INSULIN ASPART 100 UNITS/ML 3 ML PEN SC SCH ×2 (08:58→12:58)
[2020-06-10] MEDS: INSULIN GLARGINE SOLOSTAR 100 UNITS/ML 3 ML PEN SC SCH (08:59)
[2020-06-10] MEDS: ONDANSETRON INJ 2 MG/ML 2 ML VIAL IV PRN (10:54)
[2020-06-10] MEDS ORDERED: FAMOTIDINE 20 MG TAB PO SCH (11:45)
--- NOTE | 2020-06-10 12:36 | Palliative Care Consultation ---
Date of Consultation June 10, 2020 Assessment & Plan (1) Palliative care encounter: This is a patient who has ovarian adenocarcinoma who presented to the [facility] ED with N/V, abdominal pain, and coffee ground emesis. Additional PMH includes DM2, HTN, HLD, CVA, SVT, anemic of chronic disease, dementia. An abdominal CT was performed and results indicated peritoneal carcinomatosis. an abdominal paracentesis was performed and 3 L of ascites fluid was removed. She was started on IV Protonix drip, Zofran and received 1 L of IV fluid. She did not undergo any further imaging.The patient has historically seen Dr. Trav Nicholson for outpatient chemotherapy, but has recently decided to forgo further treatment and take a more palliative approach. Palliative care was consulted to discuss goals of care. Patient seen in room 288. Pt AAO x3. She is able to walk in her room with her walker. Her nausea has significantly improved. She received one dose of IV Ativan over the past 24 hours. When discussing her goals of care, she agreed to a DNR/DNI which later her . Augustine, agreed to as well. She was very clear that she wanted to go home as soon as possible. I discussed multiple options with the family including Hospice and Palliative Care options. The patient is unsure if she would like to continue with abdominal paracentesis or if she would like to transition to hospice measures only. After discussion on the phone, they all decided to proceed with starting Palliative care on an outpatient basis and transition to hospice if necessary. case management aware and a referral was placed to [facility] palliative care. Plan is for patient to be discharged today. Thanks for involving us with Lorraine's care. (2) Ovarian cancer: Laterality: unspecified laterality Qualified Code(s): C56.9 - Malignant neoplasm of unspecified ovary (3) Nausea & vomiting: Vomiting Intractability: non-intractable Vomiting type: unspecified Qualified Code(s): R11.2 - Nausea with vomiting, unspecified (4) Nausea: (5) Ascites: Ascites type: malignant Qualified Code(s): R18.0 - Malignant ascites History of Present Illness Reason for Consultation: goals of care Requesting Physician: Ramona Junior PA-C Attending Physician: Braydon Gutierrez MD History of Present Illness This is a patient who has ovarian adenocarcinoma who presented to the [facility] ED with N/V, abdominal pain, and coffee ground emesis. Additional PMH includes DM2, HTN, HLD, CVA, SVT, anemic of chronic disease, dementia. An abdominal CT was performed and results indicated peritoneal carcinomatosis. an abdominal p aracentesis was performed and 3 L of ascites fluid was removed. She was started on IV Protonix drip, Zofran and received 1 L of IV fluid. She did not undergo any further imaging.The patient has historically seen Dr. Trav Nicholson for outpatient chemotherapy, but has recently decided to forgo further treatment and take a more palliative approach. Palliative care was consulted to discuss goals of care. Allergies Allergy/AdvReac Type Severity Reaction Status Date / Time codeine Allergy Mild Unknown Verified 06/07/20 13:04 Penicillins Allergy Mild UNSURE OF Verified 06/07/20 13:04 REACTION Home Medications Medication Instructions Recorded Confirmed Type cyanocobalamin (vitamin B-12) 1,000 mcg PO QAM 04/25/19 06/07/20 History [Vitamin B-12] metoprolol succinate 50 mg PO QAM 08/09/19 06/07/20 History aspirin 81 mg PO QAM #30 tab 08/19/19 06/07/20 Rx lisinopril 2.5 mg PO QAM 11/14/19 06/07/20 History magnesium 400 mg PO TID 02/11/20 06/07/20 History metformin 500 mg PO BID 02/11/20 06/07/20 History omeprazole 20 mg PO BID 02/11/20 06/07/20 History ondansetron HCl 8 mg PO Q8H PRN 02/11/20 06/07/20 History atorvastatin 40 mg PO QAM #30 tab 02/13/20 06/07/20 Rx mirtazapine 7.5 mg PO HS #30 tab 02/13/20 06/07/20 Rx multivitamin 1 tab PO QAM 06/06/20 06/07/20 History cefdinir 300 mg PO BID #4 cap 06/10/20 Rx famotidine 20 mg PO BID #14 tab 06/10/20 Rx morphine concentrate 5 mg PO Q8H PRN 15 Days #15 ml 06/10/20 Rx Patient History Medical History (Updated 06/10/20 @ 23:17 by SCOOBY Ortiz) Anemia Anxiety Breast cancer Cancer OVARIAN CANCER AND FOUND NODULE IN DUODENUM AREA AND WILL START CHEMO AFTER 2018 Dementia Diabetes mellitus, type 2 GERD (gastroesophageal reflux disease) History of CVA (cerebrovascular accident) 01/2020, lateral left thalamic infarct Hypertension Ovarian cancer Bilateral ovarian cancer diagnosed in 2013. S/P debulking surgery on 03/05/2014 Palliative care encounter Peritoneal carcinomatosis SVT (supraventricular tachycardia) Surgical History History of breast implant History of colon resection History of esophagogastroduodenoscopy (EGD) History of exploratory laparotomy She had total abdominal hysterectomy, bilateral salpingo-oophorectomy, left colectomy, side to side functional end to end reanastomosis, removal of sigmoid nodule, right uterosacral nodule, splenic flexure nodule, omentectomy on 03/05/14. History of mastectomy History of tonsillectomy Hx of colonoscopy Hx of eye surgery UNSURE SOMETHING TO DO WITH RETINA Hx of hysterectomy BSO Family History (Updated 06/07/20 @ 14:06 by Ramona Junior PA-C) Mother Myocardial infarction Sister Breast cancer Social History Smoking Status: Never smoker Second Hand Exposure: No; Do You Dip or Chew Tobacco: No; Tobacco Cessation Education Requested by Patient: No Hx Alcohol Use: Yes Alcohol type: wine Hx Substance Use: No Preferred Language: Macanese Communication Ability: Effective Button Breaker Operator Required: No Beliefs That Will Affect Care: None marital status: Current Living Situation: Spouse Other Information That Helps Us Care for You: No Feels Safe at Home: Yes Assistive Devices: Glasses and Walker Review of Systems Review of Systems: All systems reviewed & are unremarkable except as noted in HPI & below Physical Exam Constitutional: + ill appearing, + thin and cooperative Respiratory: normal respiratory effort, lungs clear to auscultation Cardiovascular: Rate/Rhythm: regular rate and regular rhythm Extremities: + edema Gastrointestinal (Abdomen): Inspection/Auscultation: + abdomen distended Percussion/Palpation: + guarding and + ascites Skin: no rashes, warm and dry Psychiatric: Orientation: alert Results & Data ([facility]) Vital Signs (Past 12 Hours) Vital Signs Temp Pulse Pulse Resp BP BP Pulse Ox 06/10/20 11:40 36.7 C 84 16 122/79 95 06/10/20 07:29 37.0 C 81 16 148/90 H 92 06/10/20 04:00 37 C 77 18 146/90 H 96 06/10/20 02:13 82 PG Care Time/CCT Total # of Minutes Spent Total Time Spent with Patient: Total time spent is greater than 50% in coordination of care (as documented) at patient's floor/unit and/or counseling patient: 100 Coding Level of Care Code 28833 Inpt Consult Level 4 Diagnoses Palliative care encounter Z51.5 Ovarian cancer C56.9 Laterality: unspecified laterality Nausea & vomiting R11.2 Vomiting Intractability: non-intractable Vomiting type: unspecified Nausea R11.0 Ascites R18.0 Ascites type: malignant Time Spent (min) 100 Time Spent Midlevel Total time spent 100 minutes with > 50% of that time spent assessing the patient, discussing goals of care with patient and family, and collaborating with IDT
[2020-06-10] MEDS ORDERED: MoRPHine SULFATE 5 MG/0.25 ML UDP PO PRN (13:06)
--- NOTE | 2020-06-10 13:10 | Hospitalist Progress Note ---
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 Coffee-ground emesis Nausea, vomiting, abdominal pain Likely secondary to cancer, Hiatal Hernia. DD: Gastritis, esophagitis --CT ABD:There is no evidence of intrathoracic metastatic disease. Findings are consistent with progressive peritoneal carcinomatosis. A large volume of abdominopelvic ascites is new from previous. Small right and trace left pleural effusions are new from previous. Large hiatal hernia. There is no bowel obstruction. --No plan for Endoscopy --Continue PPI BID -Appreciate GI Input -Tolerating regular diet -Minimal drop in hemoglobin likely dilutional secondary to IV fluids -Monitor CBC, Transfuse PRBCs as needed -Hb stable (3) Ovarian cancer: (4) Peritoneal carcinomatosis: (5) Ascites: Ovarian cancer with mets to omentum and colon Ascites Peritoneal carcinomatosis S/P debulking surgery in 2013 Received chemotherapy, last 3 months ago Significant increase in CA-[address]BD as above S/P abdominal paracentesis with successful removal of 3 L of acetic fluid Follows with Dr. Trav Nicholson as outpatient Very poor prognosis Palliative care consulted to address goals of care Family interested in hospice services No pain currently Appreciate palliative care input CODE STATUS changed to DNI DNR. (6) Anemia: Anemia of chronic disease (7) SIRS (systemic inflammatory response syndrome): Sepsis -POA UTI-POA Urine Cx: E.coli --pansensitive Blood Cx: No growth to date Continue Rocephin Day #3 (8) Diabetes mellitus, type 2: A1c 6.8 Hold Metformin Continue Lantus/NovoLog per protocol Monitor BGs (9) Hypertension: H/O SVT Continue metoprolol and lisinopril Monitor BP (10) Dementia: H/O dementia with prescription for Haldol, although states he has not had to use it Reorient frequently to minimize delirium (11) DVT prophylaxis: SCD/TEDS for now Code Status DNI/DNR Appreciate Palliative Care Input Disposition: Follow-up: PCP Dr. Miles upon discharge Plan to discharge home with palliative service. Eventually transition to hospice as able Admission and Anticipated Discharge Date Admission Date: June 08, 2020 Subjective Patient is seen and examined at bedside States having heartburn this morning Eager to get discharged Offers no other complaints Discussed with palliative care today Denies nausea, vomiting, abdominal pain, chest pain, dyspnea, dizziness Review of Systems Review of Systems: All systems reviewed & are unremarkable except as noted in HPI & below Physical Exam Physical Exam: Physical Exam: Vitals signs as noted above General Appearance: Chronically ill-appearing, elderly no apparent distress Head: normocephalic, Atraumatic Eyes: normal inspection, EOMI Neck: supple, Trachea midline Respiratory/Chest: Normal breath sounds, CTA, No accessory muscle use Cardiovascular: S1, S2, + systolic murmur Abdomen/GI:Soft, Non tender, Bowel sounds present Extremities/Musculoskelatal:normal inspection, no edema Neurologic/Psych:AAOX3, grossly no focal neurological deficits Skin: normal color, warm Results & Data Results & Data ([facility]) Vital Signs (Past 12 Hours) Vital Signs Temp Pulse Pulse Resp BP BP Pulse Ox 06/10/20 11:40 36.7 C 84 16 122/79 95 06/10/20 07:29 37.0 C 81 16 148/90 H 92 06/10/20 04:00 37 C 77 18 146/90 H 96 06/10/20 02:13 82 Laboratory Results Short CBC 06/10/20 Range/Units 06:14 WBC 9.73 (4.8-10.8) K/uL Hgb 11.4 L (12.0-16.0) g/dL Hct 33.9 L (37-47) % Plt Count 394 (130-400) K/uL BMP 06/10/20 06:14 Sodium 138 Potassium 4.1 D Chloride 105 Carbon Dioxide 27 BUN 13 Creatinine 0.64 Glucose 148 H Calcium 7.6 L (1) Ovarian cancer Laterality: unspecified laterality Qualified Code(s): C56.9 - Malignant neoplasm of unspecified ovary (2) Ascites Ascites type: malignant Qualified Code(s): R18.0 - Malignant ascites
--- NOTE | 2020-06-10 13:25 | Discharge Summary ---
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 Of significance symptoms started 2 to 3 days ago. She has been having generalized, diffuse, colicky abdominal pain, described as "hard," constant, made worse with emesis, and improved with rest. at bedside states that since last evening at approximately 9 PM she has vomited 0.15 quarts of coffee-ground emesis. She was seen and evaluated in ED yesterday and underwent CT chest and abdomen pelvis. This showed worsening of her peritoneal carcinomatosis, abdominal ascites and bilateral small pleural effusions but no other acute process. She was treated with IV fluids, antiemetics and Toradol and was discharged home. Unfortunately vomiting returned at about 9 PM and she started vomiting every 10 minutes. For the past 2 to 3 days she has been unable to keep anything down including medications. She denies any fever, chills, sweats, lightheadedness, dizziness, syncope, chest pain, shortness of breath, cough, constipation, dysuria, increased urgency or frequency with urination and hematuria. She does have diarrhea about 1-2 episodes a day but this is not unusual for her. Her last bowel movement was once yesterday, large amount and denies any melena or hematochezia. She denies taking any Mylanta or Maalox. Denies any prior history of GI bleeding. She does follow Dr. 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 In 2013 she did undergo debulking surgery, JENA BSO, L colectomy with side to side functional end to end re anastomosis, removal of sigmoid nodule, r uterosacral nodule, splenic flexure nodule, omentectomy. SHe has underwent numerous rounds of chemo therapy, last 3 months ago. In April she has had significant increase in her CA-125 and was to have follow up with Dr. Nicholson today, but was referred to ED 2/2 to coffee ground emesis. In ED she remained hemodynamically stable although significantly hypertensive and mildly tachycardic in the high 90s. Lab work notable for WBC 16.8 9K, H&H 11.4 and 34.1, platelet 411, sodium 134, K3.6, BUN 17, creatinine 0.96, glucose 288. She was started on IV Protonix bolus and drip, Zofran and received 1 L of IV fluid. Upon my evaluation she was feeling improved and no longer vomiting. She did not undergo any further imaging. Admission Exam Per Admitting Provider Physical Exam Physical Exam: Constitutional: Thin, petite, elderly, female vitals as above, NAD, sitting up in bed, pleasant, conversing easily, answers questions appropriately Head: Normocephalic, Atraumatic Eyes: PERRL, conjunctivae normal, anicteric sclerae ENMT: external ear and nose normal, oropharynx normal Neck: trachea midline, no thyromegaly normal visual inspection Respiratory: normal respiratory effort, lungs clear to auscultation, no wheeze, rales, rhonchi. Normal insp/exp effort, no accessory muscle use Cardiovascular: Tachycardic rate, regular rhythm, 2/6 ADEBAYO at RUSB, no edema Vessels: no JVD or carotid bruit Chest: normal inspection of chest , left anterior chest wall port Abdomen: normal bowel sounds, soft, nontender, no hepatosplenomegaly Musculoskeletal: no cyanosis or clubbing, extremities motor strength 5/5 Skin: no rashes, warm and dry normal turgor Neurologic: PERRL, EOMI, accommodation nl, no face palsy, no dysarthria CN's II-XI intact bilaterally and moves all extremities Psychiatric: A+Ox3, euthymic affect Lymphatic: no cervical or axillary lymphadenopathy : deferred Principal Diagnosis Ascites Peritoneal carcinomatosis Possible Upper GI bleed Urinary tract infection Sepsis Discharge Data Allergies Allergy/AdvReac Type Severity Reaction Status Date / Time codeine Allergy Mild Unknown Verified 06/07/20 13:04 Penicillins Allergy Mild UNSURE OF Verified 06/07/20 13:04 REACTION Consultations 06/07/20 12:26 ED Decision to Admit Stat 06/07/20 16:13 Consult Case Management - Discharge Planning Routine Consult Gastroenterology Routine Consult Palliative Care Routine Procedures Performed CT ABD:There is no evidence of intrathoracic metastatic disease. Findings are consistent with progressive peritoneal carcinomatosis. A large volume of abdominopelvic ascites is new from previous. Small right and trace left pleural effusions are new from previous. Large hiatal hernia. There is no bowel obstruction. 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 Coffee-ground emesis Nausea, vomiting, abdominal pain Likely secondary to cancer, Hiatal Hernia. DD: Gastritis, esophagitis --CT ABD:There is no evidence of intrathoracic metastatic disease. Findings are consistent with progressive peritoneal carcinomatosis. A large volume of abdominopelvic ascites is new from previous. Small right and trace left pleural effusions are new from previous. Large hiatal hernia. There is no bowel obstr uction. --No plan for Endoscopy --Continue PPI BID -Appreciate GI Input -Tolerating regular diet -Minimal drop in hemoglobin likely dilutional secondary to IV fluids -Monitor CBC, Transfuse PRBCs as needed -Hb stable (3) Ovarian cancer: (4) Peritoneal carcinomatosis: (5) Ascites: Ovarian cancer with mets to omentum and colon Ascites Peritoneal carcinomatosis S/P debulking surgery in 2013 Received chemotherapy, last 3 months ago Significant increase in CA-[address] ABD as above S/P abdominal paracentesis with successful removal of 3 L of acetic fluid Follows with Dr. Trav Nicholson as outpatient Very poor prognosis Palliative care consulted to address goals of care Family interested in hospice services No pain currently Appreciate palliative care input CODE STATUS changed to DNI DNR. (6) Anemia: Anemia of chronic disease (7) SIRS (systemic inflammatory response syndrome): Sepsis -POA UTI-POA Urine Cx: E.coli --pansensitive Blood Cx: No growth to date Continue Rocephin Day #3 (8) Diabetes mellitus, type 2: A1c 6.8 Hold Metformin Continue Lantus/NovoLog per protocol Monitor BGs (9) Hypertension: H/O SVT Continue metoprolol and lisinopril Monitor BP (10) Dementia: H/O dementia with prescription for Haldol, although states he has not had to use it Reorient frequently to minimize delirium (11) DVT prophylaxis: SCD/TEDS for now Code Status DNI/DNR Appreciate Palliative Care Input Disposition: Follow-up: PCP Dr. Miles upon discharge Plan to discharge home with palliative service. Eventually transition to hospice as able Total Time Total Time Spent Total Time Spent (In Minutes): 40 minutes Total Time Includes: Examination of the Patient, Discharge Planning, Medication Reconciliation, Communication With Other Providers and Other Discharge Plan Discharge Items Patient Disposition: Home - Home Health Services Reason For Visit: NAUSEA/VOMITING; POSSIBLE GIB Discharge Diagnosis: Ascites Peritoneal carcinomatosis Possible Upper GI bleed Urinary tract infection Sepsis Activity: Per Instructions section Exercise/Sports: Gradually increase as tolerated Non-emergency contact: Primary Care Provider and Oncologist Call non-emergency contact if: you have any medication questions, your symptoms worsen, your pain is not controlled, your pain is worsening, your pain is unusual for you and you have a fever Follow-up/Referrals: Juliano Miles MD [Primary Care Provider] - (Date & Time 06/18/2020 12:20 PM Provider Juliano Miles MD Department Family Practice [facility] ) Diet: Carb Consistent or DM2 Addtl Attending Provider Instructions: Follow-up with your primary care physician Dr. Tam on 06/18/2020 12:20 PM Follow-up with your oncologist Dr. Trav Nicholson as needed Complete the antibiotic course:Cefdinir 300mg Twice a day for 2 more days. Your final blood cultures are pending at the time of discharge. Follow-up with your physician for results. Seek immediate medical attention if your symptoms reoccur or worsen Pending Studies at Discharge: Yes Studies:: Blood Cultures Stand-Alone Forms: My [employer], Smoking Cessation Medications and DC Order Prescriptions: New cefdinir 300 mg Capsule 300 mg PO BID Qty: 4 RF: 0 morphine concentrate 100 mg/5 mL (20 mg/mL) Solution 5 mg PO Q8H PRN (Reason: pain) 15 Days Qty: 15 RF: 0 famotidine 20 mg Tablet 20 mg PO BID Qty: 14 RF: 0 Continued cyanocobalamin (vitamin B-12) [Vitamin B-12] 1,000 mcg Tablet 1,000 mcg PO QAM RF: 0 metoprolol succinate 25 mg Tablet Extended Release 24 Hr 50 mg PO QAM RF: 0 aspirin 81 mg Tablet,Delayed Release (Dr/Ec) 81 mg PO QAM Qty: 30 RF: 0 metformin 500 mg tablet 500 mg PO BID RF: 0 ondansetron HCl 8 mg tablet 8 mg PO Q8H PRN (Reason: Nausea) RF: 0 omeprazole 20 mg capsule,delayed release(DR/EC) 20 mg PO BID RF: 0 magnesium 200 mg Tablet 400 mg PO TID RF: 0 atorvastatin 40 mg Tablet 40 mg PO QAM Qty: 30 RF: 0 mirtazapine 15 mg Tablet 7.5 mg PO HS Qty: 30 RF: 0 multivitamin Tablet 1 tab PO QAM RF: 0 lisinopril 2.5 mg tablet 2.5 mg PO QAM RF: 0 Discharge Orders: Discharge Order (Routine); Ordered 06/10/20 Ordered By: Braydon Luna/Other Patient Handouts: Managing Type 2 Diabetes Admission Data Admit Date/Time: 06/08/20 14:57 Attending Provider: Braydon Gutierrez Admit Provider: Derek Negro Primary Care Provider: Juliano Miles Other Providers: Derek Negro ; Elli Lindsey ; Surekha Zimmerman ; [facility] Other Interventions: Discharge Summary Assessment (RN) Last Done: 06/10/20 13:28
[2020-06-10] MEDS: cefTRIAXone SODIUM 1,000 MG in DEXTROSE 5% 50 ML IV SCH (13:50)
[2020-06-11] MEDS ORDERED: CEFDINIR 300 MG CAP PO SCH (09:00)
== END 2020-06-10 16:30 | disposition home health service (06) | DRG 374 ==
LOC: ED 10:43 → 2N 10:43 → SUATTDRO 12:53 → 2N 14:47